=== PATIENT | male | born 1970 | race Caucasian/White ===

== ENCOUNTER 2017-05-28 03:09 | Emergency (ER) | payer BC ==
[~2017-05-28] VITALS: Ht 167.6 cm; Wt 68.2 kg
[~2017-05-28 03:09] MED LIST: ALPR1TAB2 PO; DEPO-TESTOSTERONE IM; MIRT30TA PO
[2017-05-28 03:13] VITALS: Ht 167.6 cm; Wt 68.2 kg
[2017-05-28] MEDS ORDERED: DEXAMETHASONE SOD INJ 4 MG/ML VIAL IV STA (03:26)
[2017-05-28] MEDS ORDERED: DiphenhydrAMINE HCL 50 MG/ML VIAL IV STA (03:26)
[2017-05-28] MEDS ORDERED: RANITIDINE HCL 50 MG/100 ML D5W IV STA (03:26)
[2017-05-28 03:55] LABS: BASO % 0.2 %; BASO ABS # 0.02 K/uL (0-0.2); COMPLETE YES; EOS % 1.9 %; HEMATOCRIT 47.5 % (42-52); IG% 0.1 %; LYMPH % 17.1 %; LYMPH ABS # 1.85 K/uL (1.2-3.4); MEAN CELL VOLUME 90.1 fL (80-100); MEAN CORPUSCULAR HEMOGLOBIN 30.7 pg (25-34); MEAN CORPUSCULAR HGB CONC 34.1 g/dl (32-36); MEAN PLATELET VOLUME 10.9 fL (7.4-10.4); MONO % 7.1 %; NEUT % 73.6 %; PLATELET COUNT 279 K/uL (130-400); RED BLOOD COUNT 5.27 M/uL (4.7-6.1); WHITE BLOOD COUNT 10.83 K/uL (4.8-10.8)
[2017-05-28] MEDS ORDERED: OMEP40CA41 PO (03:56)
[2017-05-28 04:07] LABS: INR 0.9 (0.9-1.1); PARTIAL THROMBOPLASTIN RATIO 1.1; PROTHROMBIN TIME (PATIENT) 9.3 SECONDS (9.0-12.0)
[2017-05-28 04:12] LABS: BUN/CREATININE RATIO 12.2 (10-20); CALCIUM 8.5 mg/dl (8.5-10.1); CREATININE 0.94 mg/dl (0.60-1.40); POTASSIUM 3.7 mmol/L (3.5-5.1)
[2017-05-28] MEDS ORDERED: SODIUM CHLORIDE 0.9% 1000ML 1,000 ML IV STA (04:30)
--- NOTE | 2017-05-28 06:28 | EMERGENCY ROOM VISIT NOTE ---
History First contact with patient: 03:23 Chief Complaint: FACIAL PAIN/INJURY Stated Complaint: SWOLLEN FACE History of Present Illness The patient is a 46 year old male who presents to the Emergency Room with complaints of facial swelling. The patient states that he woke up tonight and noticed that his upper lip was swollen. The patient states that over the past few days, he has had a rash which has been moving to different parts of his body. He reports that initially started in the right wrist, which also became swollen. He first noticed this 4-5 days ago. Since then, he has had a red rash which moves over his feet, hands and abdomen/trunk. He reports that he has one spot over his lower abdomen at this time. He denies any history of similar episodes. He does report an allergy to peaches and penicillin and denies any recent exposure to either of these. He does report that he has been taking [place] cold and flu [id number]. He denies any other new medications or new environmental exposures. The patient does not take any JENNIFER inhibitor's or anti-inflammatories. Review of Systems A complete 10 point review of systems was reviewed with the patient with pertinent positives and negatives as per history of present illness. All else were negative. Social History Smoking Status: Never Smoker Current/Historical Medications Scheduled Doxycycline Hyclate (Vibramycin), 100 MG PO BID Mirtazapine (Remeron), 45 MG PO DAILY Omeprazole (Prilosec), 40 MG PO DAILY [Depo-Testosterone ], 200 MG IM EVERY TWO WEEKS Physical Exam Vital Signs Date Time Temp Pulse Resp B/P (MAP) Pulse Ox O2 Delivery O2 Flow Rate FiO2 05/28/17 07:34 88 22 140/94 96 Room Air 05/28/17 05:30 111 18 111/79 96 Room Air 05/28/17 04:30 85 18 141/94 97 Room Air 05/28/17 03:13 37.1 96 18 132/96 97 Room Air 96 Physical Exam VITALS: Vitals are noted on the nurse's note and reviewed by myself. Vital signs stable. GENERAL: This is a 46-year-old male, in no acute distress, nondiaphoretic, well- developed well-nourished. SKIN: There is an erythematous raised lesion to the lower abdomen. There is no additional erythematous lesion to the left volar wrist. No other rashes noted. FACE: The upper lip is moderately edematous. No swelling of the lower lip. EARS: External auditory canals clear, tympanic membranes pearly dumont without erythema or effusion bilaterally. EYES: Pupils equal round and reactive to light and accommodation. Conjunctivae without injection, sclerae without icterus. MOUTH: Mucous membranes moist. No swelling of the tongue. Airway patent. NECK: Supple without nuchal rigidity. No lymphadenopathy. HEART: Regular rate and rhythm without murmurs gallops or rubs. LUNGS: Clear to auscultation bilaterally without wheezes, rales or rhonchi.e. NEURO: Patient was alert and oriented to person place and time. Medical Decision & Procedures Laboratory Results 05/28/17 03:32 Red Blood Count 5.27, Mean Corpuscular Volume 90.1, Mean Corpuscular Hemoglobin 30.7, Mean Corpuscular Hemoglobin Concent 34.1, Mean Platelet Volume 10.9, Neutrophils (%) (Auto) 73.6, Lymphocytes (%) (Auto) 17.1, Monocytes (%) (Auto) 7.1, Eosinophils (%) (Auto) 1.9, Basophils (%) (Auto) 0.2, Neutrophils # (Auto) 7.97, Lymphocytes # (Auto) 1.85, Monocytes # (Auto) 0.77, Eosinophils # (Auto) 0.21, Basophils # (Auto) 0.02 05/28/17 03:32 Test 05/28/17 03:32 White Blood Count 10.83 K/uL (4.8-10.8) Red Blood Count 5.27 M/uL (4.7-6.1) Hemoglobin 16.2 g/dL (14.0-18.0) Hematocrit 47.5 % (42-52) Mean Corpuscular Volume 90.1 fL (80-100) Mean Corpuscular Hemoglobin 30.7 pg (25-34) Mean Corpuscular Hemoglobin Concent 34.1 g/dl (32-36) Platelet Count 279 K/uL (130-400) Mean Platelet Volume 10.9 fL (7.4-10.4) Neutrophils (%) (Auto) 73.6 % Lymphocytes (%) (Auto) 17.1 % Monocytes (%) (Auto) 7.1 % Eosinophils (%) (Auto) 1.9 % Basophils (%) (Auto) 0.2 % Neutrophils # (Auto) 7.97 K/uL (1.4-6.5) Lymphocytes # (Auto) 1.85 K/uL (1.2-3.4) Monocytes # (Auto) 0.77 K/uL (0.11-0.59) Eosinophils # (Auto) 0.21 K/uL (0-0.5) Basophils # (Auto) 0.02 K/uL (0-0.2) RDW Standard Deviation 40.3 fL (36.4-46.3) RDW Coefficient of Variation 12.2 % (11.5-14.5) Immature Granulocyte % (Auto) 0.1 % Immature Granulocyte # (Auto) 0.01 K/uL (0.00-0.02) Prothrombin Time 9.3 SECONDS (9.0-12.0) Prothromb Time International Ratio 0.9 (0.9-1.1) Activated Partial Thromboplast Time 27.8 SECONDS (21.0-31.0) Partial Thromboplastin Ratio 1.1 Anion Gap 5.0 mmol/L (3-11) Est Creatinine Clear Calc Drug Dose 86.7 ml/min Estimated GFR () 110.7 Estimated GFR (Non- 95.5 BUN/Creatinine Ratio 12.2 (10-20) Calcium Level 8.5 mg/dl (8.5-10.1) Lyme Disease IgG Antibody NEG (NEG) Medications Administered Medications (Trade) Dose Ordered Sig/Yoana Route Start Time Stop Time Status Last Admin Dose Admin Dexamethasone Sodium Phosphate (Decadron Inj) 10 mg NOW STAT IV 05/28/17 03:26 05/28/17 03:28 PA 05/28/17 03:46 10 MG Ranitidine HCl (zANTac IV) 50 mg NOW STAT IV 05/28/17 03:26 05/28/17 03:28 PA 05/28/17 03:47 50 MG Diphenhydramine HCl (Benadryl Inj) 50 mg NOW STAT IV 05/28/17 03:26 05/28/17 03:28 PA 05/28/17 03:45 50 MG Sodium Chloride 1,000 ml @ 999 mls/hr Q1H1M STAT IV 05/28/17 04:30 05/28/17 05:30 DC 05/28/17 04:42 999 MLS/HR Ceftriaxone Sodium (Rocephin Inj) 1 gm NOW STAT IV 05/28/17 07:29 05/28/17 07:33 DC 05/28/17 07:33 1 GM ED Course The patient was evaluated as above. Labs were drawn and IV access was obtained. Patient was medicated with IV Decadron, Benadryl and Zantac. Lyme screen was found to be positive. Patient was given 1 gm Rocephin IV. He will be placed on doxycycline. Discharge instructions were reviewed with the patient. The patient verbalized understanding of my assessment and treatment plan and was discharged home in good condition. Medical Decision Differential diagnosis includes Lyme disease, angioedema, allergic reaction, anaphylaxis, among others. The patient is a 46-year-old male who presents today complaining of upper lip swelling and a migrating rash over the past several days. Labs were fairly unremarkable. Lyme IgM did come back as equivocal. I feel that the patient should be treated for Lyme given these symptoms. He was given 1 g Rocephin and will be placed on doxycycline. His lip swelling did appear to improve after receiving the IV Decadron, Benadryl and Zantac. He was advised to follow closely with Dr. Wright, his PCP. He was instructed to return here immediately. Labs difficulty swallowing, difficulty breathing, or tongue swelling. Based on the patient's presentation and work up, I feel the patient is stable for outpatient treatment. The patient was educated to return to the emergency department for any worsening of their current condition or new/concerning symptoms. He will follow up with his primary care provider. The patient's case was reviewed with Dr. Dean, ED attending physician, who agreed with my assessment and treatment plan. Medication Reconcilliation Current Medication List: was personally reviewed by me Blood Pressure Screening Patient's blood pressure: Elevated blood pressure Blood pressure disposition: Elevated BP felt to be situational Impression Primary Impression: Facial swelling Additional Impression: Lyme disease Departure Information Dispostion Home / Self-Care Condition GOOD Prescriptions Doxycycline Hyclate (VIBRAMYCIN) 100 Mg Cap 100 MG PO BID for 21 Days, #42 CAP Prov: Katerine Bustos ., BAO 05/28/17 Referrals Van Bass M.D. (PCP) Patient Instructions My [facility] Additional Instructions You were prescribed doxycycline to be taken twice daily for 21 days. This is an antibiotic. All antibiotics have the potential to cause diarrhea. Stop this medication and contact a medical provider if you were to develop any significant adverse side effects including: wheezing, shortness of breath, passing out, vomiting, or a diffuse rash. Always take antibiotics as directed and COMPLETE the ENTIRE course regardless of the improvement of your symptoms. You should take Benadryl (diphenhydramine) 25-50 mgs every 6 hours for the next 3 days. You can find this medicine [id number]. Benadryl can help reduce your symptoms. You should take it for the next 3 days or until your symptoms have subsided. Be aware that Benadryl can make you drowsy. Follow-up with Dr. Wright within 2 days for a recheck. Return here for worsening swelling, difficulty breathing, difficulty swallowing or any other new/concerning symptoms. Problem Qualifiers
[2017-05-28 07:14] LABS: LYME DISEASE AB IGG NEG (NEG)
[2017-05-28 07:17] LABS: LYME DISEASE AB IGM EQUIVOCAL (NEG)
[2017-05-28] MEDS ORDERED: CEFTRIAXONE SOD INJ 1 GM ADDVIAL IV STA (07:29)
[2017-05-28] MEDS ORDERED: DOXY100C PO (07:31)
[2017-05-28 07:34] VITALS: BP 140/94; PULSE 88; O2SAT 96
[2017-06-02 06:26] LABS: 18KDIGG BAND NONREACTIVE (NONREACTIVE); 23KDIGG BAND NONREACTIVE (NONREACTIVE); 23KDIGM BAND REACTIVE (NONREACTIVE); 28KDIGG BAND NONREACTIVE (NONREACTIVE); 30KDIGG BAND NONREACTIVE (NONREACTIVE); 39KDIGG BAND NONREACTIVE (NONREACTIVE); 39KDIGM BAND NONREACTIVE (NONREACTIVE); 41KDIGG BAND REACTIVE (NONREACTIVE); 41KDIGM BAND REACTIVE (NONREACTIVE); 45KDIGG BAND NONREACTIVE (NONREACTIVE); 58KDIGG BAND NONREACTIVE (NONREACTIVE); 66KDIGG BAND NONREACTIVE (NONREACTIVE); 93KDIGG BAND NONREACTIVE (NONREACTIVE)
== END 2017-05-28 08:11 | disposition home or self-care (01) ==
LOC: C.EDB 03:10
DX: R22.0 Localized swelling, mass and lump, head (principal); A69.20 Lyme disease, unspecified; Z79.899 Other long term (current) drug therapy

== ENCOUNTER → 2017-07-08 | Outpatient (CLI) | payer BC ==
[~2017-07-08] MED LIST changes: -ALPR1TAB2 PO; +OMEP40CA41 PO
== END | disposition home or self-care (01) ==
LOC: C.LAB1850 13:59
PROVIDERS: ATTEND Dermatology
DX: L50.9 Urticaria, unspecified (principal)

== ENCOUNTER → 2017-08-04 | Outpatient (CLI) | payer BC | END | disposition home or self-care (01) | LOC: C.LAB1850 16:45 | PROVIDERS: ATTEND Dermatology | DX: L50.9 Urticaria, unspecified (principal) ==

== ENCOUNTER 2020-04-24 20:58 | Inpatient (IN) ==
[2020-04-24 21:42] LABS: Basophils # (auto) 0.01 K/uL (0-0.2); Basophils % (auto) 0.1 %; Eosinophils # (auto) 0.15 K/uL (0-0.5); Hematocrit (blood only) 42.5 % (42-52); Hemoglobin 14.8 g/dL (14.0-18.0); Immature Granulocytes # (auto) 0.02 K/uL (0.00-0.02); Immature Granulocytes % (auto) 0.3 %; Lymphocytes # (auto) 2.15 K/uL (1.2-3.4); Lymphocytes % (auto) 28.3 %; Mean Corpuscular Hemoglobin 31.1 pg (25-34); Mean Corpuscular Hgb Conc 34.8 g/dL (32-36); Mean Corpuscular Volume 89.3 fL (80-100); Monocytes # (auto) 0.85 K/uL (0.11-0.59); Monocytes % (auto) 11.2 %; Neutrophils # (auto) 4.42 K/uL (1.4-6.5); Neutrophils % (auto) 58.1 %; Platelet Count 247 K/uL (130-400); RDW Coefficient of Variation 11.8 % (11.5-14.5); RDW Standard Deviation 38.1 fL (36.4-46.3); Red Blood Count 4.76 M/uL (4.7-6.1)
--- NOTE | 2020-04-24 21:47 | Emergency Department Note ---
History of Present Illness General Chief complaint: Chest Pain Stated complaint: CHEST PAIN AND L ARM PAIN Time Seen by Provider: 04/24/20 21:09 Source: patient Mode of arrival: ambulatory Limitations: no limitations History of Present Illness Provider complaint: Chest pain Onset (ago): hour(s) Location: chest Radiation: extremity Severity: moderate Pain Consistency: + colicky Maximum Pain Intensity: 2 Current Pain Intensity: 1 Exacerbated By: + movement Associated symptoms: + shortness of breath Treatments prior to arrival: none This is a 49-year-old male who presents today with concern for central and left- sided chest pain that began this afternoon while he was at work. Patient states he noted with going up ladders and carrying things the chest pain would get worse. Patient states this pattern continued even after he got home from work. States with rest the pain would ease but not completely go away. Patient states the pain would radiate into the left upper extremity, and there is also an accompanying numbness to the left upper extremity. No radiation into the back or neck. Patient states he was slightly short of breath at times, however feels fine right now. Patient denies any recent cough or cold, fevers or chills. Patient denies any change in exertion or activity, no trauma. Patient states both his brother and father have had heart problems. He states he is never been evaluated and never had any similar episodes previously. Patient states he did take aspirin prior to arrival. No other meds at home for his pain. Pt seen during a time of high acuity and national emergency pandemic while wearing PPE. Home Medications Home Medications Medication Instructions Recorded Confirmed Type mirtazapine 45 mg tablet 45 mg PO DAILY #90 tab 03/17/19 04/24/20 Rx omeprazole 40 mg capsule,delayed 40 mg PO DAILY #90 cap 03/17/19 04/24/20 Rx release epinephrine 0.3 mg/0.3 mL 0.3 mg IM ONCE PRN ea 06/14/19 04/24/20 History injection, auto-injector diclofenac sodium [Voltaren] 0 g TOPICAL QID PRN 04/24/20 04/24/20 History lactobacillus combination no.4 0 mmu cells PO DAILY 04/24/20 04/24/20 History [Probiotic] Allergies Allergy/AdvReac Type Severity Reaction Status Date / Time pollen extracts Allergy Intermediate ITCHY Verified 09/01/20 22:07 EYES, RUNNY NOSE, CONGESTION Penicillins Allergy Unknown HAPPENED Verified 04/24/20 22:07 A CHILD Past Med/Surg History Medical History Lyme disease Surgical History S/P laparoscopic cholecystectomy Family History Other Family history non-contributory Social History Smoking Status: Never smoker Hx Alcohol Use: No Hx Substance Use: No Preferred Language: Lao Communication Ability: Effective Beliefs That Will Affect Care: None marital status: Current Living Situation: Alone current occupational status: employed 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 and A total of 10 systems reviewed and were otherwise negative Physical Exam Vital Signs Vital Signs - 24 hr 04/24/20 21:02 04/24/20 22:22 04/24/20 23:11 Temperature 37.2 C Temperature Source Oral Pulse Rate 76 74 Pulse Rate [Right] 79 Pulse Rhythm [Right] Regular Pulse Strength [Right] Normal Respiratory Rate 18 16 16 Respiratory Effort / Characteristics Non-Labored Spontaneous Non-Labored Spontaneous Respiratory Depth Normal Normal Respiratory Pattern Regular Blood Pressure 162/104 H 136/95 Blood Pressure [Right Arm] 143/89 H Blood Pressure Mean 123 Blood Pressure Mean [Right Arm] 107 Blood Pressure Position Sitting Blood Pressure Position [Right Arm] Sitting Pulse Oximetry 98 98 98 Oxygen Delivery Method Room Air Room Air Nasal Cannula Oxygen Flow Rate 4 Sepsis Recent Fever Within 48 Hours No Sepsis New/Unexplained Change in Mental Status No Sepsis Action Taken by Nursing No Action Required 04/24/20 23:28 04/24/20 23:34 04/24/20 23:42 Temperature Temperature Source Pulse Rate Pulse Rate [Right] 71 69 74 Pulse Rhythm [Right] Regular Regular Pulse Strength [Right] Normal Normal Respiratory Rate 16 16 16 Respiratory Effort / Characteristics Non-Labored Spontaneous Non-Labored Spontaneous Respiratory Depth Normal Normal Normal Respiratory Pattern Blood Pressure Blood Pressure [Right Arm] 80/57 L 90/66 L 96/74 L Blood Pressure Mean Blood Pressure Mean [Right Arm] 64 74 81 Blood Pressure Position Blood Pressure Position [Right Arm] Lying Lying Pulse Oximetry 98 99 98 Oxygen Delivery Method Nasal Cannula Nasal Cannula Room Air Oxygen Flow Rate 4 4 Sepsis Recent Fever Within 48 Hours Sepsis New/Unexplained Change in Mental Status Sepsis Action Taken by Nursing 04/25/20 00:03 Temperature Temperature Source Pulse Rate Pulse Rate [Right] 90 Pulse Rhythm [Right] Regular Pulse Strength [Right] Normal Respiratory Rate 16 Respiratory Effort / Characteristics Non-Labored Spontaneous Respiratory Depth Normal Respiratory Pattern Blood Pressure Blood Pressure [Right Arm] 136/95 Blood Pressure Mean Blood Pressure Mean [Right Arm] 108 Blood Pressure Position Blood Pressure Position [Right Arm] Lying Pulse Oximetry 92 Oxygen Delivery Method Nasal Cannula Oxygen Flow Rate 4 Sepsis Recent Fever Within 48 Hours Sepsis New/Unexplained Change in Mental Status Sepsis Action Taken by Nursing GENERAL: alert, well appearing, well nourished, no distress, non-toxic EYE EXAM: normal conjunctiva, PERRL and EOM's grossly intact OROPHARYNX: no exudate, no erythema, lips, buccal mucosa, and tongue normal and mucous membranes are moist NECK: supple, no nuchal rigidity, no adenopathy, non-tender LUNGS: Clear to auscultation. Normal chest wall mechanics, no w/r/r HEART: no murmurs, S1 normal and S2 normal, no reproducible chest wall tendern ess ABDOMEN: abdomen soft, non-tender, normo-active bowel sounds, no masses, no rebound or guarding. BACK: Back is symmetrical on inspection and there is no deformity, no midline tenderness, no CVA tenderness. SKIN: no rashes and no bruising, no petechiae UPPER EXTREMITIES: upper extremities are grossly normal. FROM, nml pulses b/l. No upper extremity edema. LOWER EXTREMITIES: No pitting edema. FROM, nml pulses b/l. NEURO EXAM: Normal sensorium, cranial nerves II-XII grossly intact, normal speech, no gross weakness of arms, no gross weakness of legs. Gross sensation intact. Course Course 2223: [facility] He would like me to hold off initiating heparin drip at this time as he would like to see and evaluate the patient and recheck a troponin in the interim. 2237: Patient updated on abnormal troponin level and plan. 2332: Called emergently to pt room as pt looked worse and repeat EKG now with STEMI. I reviewed and called HEART ALERT. Repeat EKG shows ST elevation inferiorly with ST depression anteroseptal. Patient hypotensive, pale, and diaphoretic, complaining of worsening chest pain. Patient had just been given 2 mg of morphine IV per the hospitalist order according to nursing staff. Patient laid back down in bed, Nitropaste removed, IV fluids opened up and a second IV line started. Once patient's blood pressure improved to reasonable level, patient was given 50 mcg of IV fentanyl to help with pain. Heparin had not yet been started on the patient, we attempted to call up to the [facility] to see if the hand picker would like Brilinta given. After several minutes, we were told not to give Brilinta, and wait for the hand picker come see the patient at bedside. Dr. Craig was able to come to bedside, he did request Brilinta at that time while he was discussing the procedure with the patient. By that time patient's blood pressure had improved to a reasonable level, patient's color was improved, he was no longer diaphoretic, although he was still having significant pain. Patient had been given two 50 mcg doses of fentanyl at that time. Administered Medications Acetaminophen (Acetaminophen 325 Mg Tab) 650 mg PO Q4H PRN PRN Reason: Pain or Fever Stop: 05/25/20 01:44 Last Admin: 04/26/20 23:39 Dose: 650 mg Documented by: [id number] Admin: 04/26/20 04:28 Dose: 650 mg Documented by: [id number] Admin: 04/25/20 19:41 Dose: 650 mg Documented by: [id number] Admin: 04/25/20 13:01 Dose: 650 mg Documented by: [id number] Aspirin (Aspirin 81 Mg Ectab) 81 mg PO [facility] Stop: 05/25/20 08:59 Last Admin: 04/27/20 08:11 Dose: 81 mg Documented by: [id number] Admin: 04/26/20 08:32 Dose: 81 mg Documented by: [id number] Admin: 04/25/20 07:55 Dose: 81 mg Documented by: [id number] Atorvastatin Calcium (Atorvastatin 40 Mg Tab) 80 mg PO [facility] Stop: 05/25/20 08:59 Last Admin: 04/27/20 08:11 Dose: 80 mg Documented by: [id number] Admin: 04/26/20 08:32 Dose: 80 mg Documented by: [id number] Admin: 04/25/20 10:32 Dose: Not Given Documented by: [id number] Lorazepam (Ativan) 0.25 mg in 0.5 mls @ 0.5 mls/min IV Q4H PRN PRN Reason: Anxiety Stop: 05/25/20 01:44 Last Admin: 04/25/20 23:47 Dose: 0.5 mls/min Documented by: [id number] Lactobacillus Acidophilus (Lactobacillus Acidophilus (Floranex) Tab) 4 tab PO DAILY DELTA Stop: 05/25/20 08:59 Last Admin: 04/27/20 08:11 Dose: 4 tab Documented by: [id number] Admin: 04/26/20 08:31 Dose: 4 tab Documented by: [id number] Admin: 04/25/20 09:55 Dose: Not Given Documented by: [id number] Lisinopril (Lisinopril 2.5 Mg Tab) 2.5 mg PO QAM DELTA Stop: 05/26/20 10:59 Last Admin: 04/27/20 08:11 Dose: 2.5 mg Documented by: [id number] Admin: 04/26/20 11:32 Dose: 2.5 mg Documented by: [id number] Metoprolol Tartrate (Metoprolol Tartrate 25 Mg Tab) 25 mg PO BID DELTA Stop: 05/26/20 20:59 Last Admin: 04/27/20 08:10 Dose: 25 mg Documented by: [id number] Admin: 04/26/20 20:43 Dose: 25 mg Documented by: [id number] Mirtazapine (Mirtazapine Soltab 15 Mg) 45 mg PO HS DELTA Stop: 05/25/20 20:59 Last Admin: 04/26/20 20:43 Dose: 45 mg Documented by: [id number] Admin: 04/25/20 20:59 Dose: 45 mg Documented by: [id number] Morphine Sulfate (Morphine Sulfate 2 Mg/Ml Carp) 2 mg IV Q3H PRN PRN Reason: Pain Stop: 05/09/20 01:52 Last Admin: 04/25/20 07:52 Dose: 2 mg Documented by: [id number] Ondansetron HCl (Ondansetron Inj 2 Mg/Ml 2 Ml Vial) 4 mg IV Q6H PRN PRN Reason: Nausea And Vomiting Stop: 05/25/20 01:53 Last Admin: 04/25/20 09:55 Dose: 4 mg Documented by: [id number] Pantoprazole Sodium (Pantoprazole 40 Mg Tab) 40 mg PO DAILY [facility] Stop: 05/25/20 08:59 Last Admin: 04/27/20 08:11 Dose: 40 mg Documented by: [id number] Admin: 04/26/20 08:31 Dose: 40 mg Documented by: [id number] Admin: 04/25/20 07:55 Dose: 40 mg Documented by: [id number] Sodium Chloride (Sodium Chloride 0.65% Na Soln 45 Ml (Bena)) 2 sprays NA UD PRN PRN Reason: Dryness Stop: 05/26/20 19:34 Last Admin: 04/26/20 20:15 Dose: 2 sprays Documented by: [id number] Ticagrelor (Ticagrelor 90 Mg Tab) 90 mg PO BID [facility] Stop: 05/25/20 11:55 Last Admin: 04/27/20 08:10 Dose: 90 mg Documented by: [id number] Admin: 04/26/20 20:43 Dose: 90 mg Documented by: [id number] Admin: 04/26/20 08:32 Dose: 90 mg Documented by: [id number] Admin: 04/25/20 20:59 Dose: 90 mg Documented by: [id number] Admin: 04/25/20 12:22 Dose: 90 mg Documented by: [id number] Discontinued Medications Aspirin (Aspirin Chew 324 Mg) 324 mg PO NOW STA Stop: 04/24/20 22:03 Last Admin: 04/24/20 22:07 Dose: Not Given Documented by: [id number] Atropine Sulfate (Atropine Sulfate 0.1 Mg/Ml 10ml Syr) Confirm Administered Dose 1 mg IV .STK-MED ONE Stop: 04/25/20 00:23 Last Admin: 04/25/20 02:23 Dose: Not Given Documented by: [id number] Fentanyl Citrate (Fentanyl Citrate 100 Mcg/2 Ml Vial) Confirm Administered Dose 100 mcg .ROUTE .STK-MED ONE Stop: 04/24/20 23:40 Last Increment: 04/24/20 23:56 Dose: 50 mcg Documented by: [id number] Increment: 04/24/20 23:40 Dose: 50 mcg Documented by: [id number] Fentanyl Citrate (Fentanyl Citrate 100 Mcg/2 Ml Vial) 50 mcg IV NOW STA Stop: 04/24/20 23:41 Last Admin: 04/24/20 23:41 Dose: Not Given Documented by: [id number] Fentanyl Citrate (Fentanyl Citrate 100 Mcg/2 Ml Vial) 50 mcg IV NOW STA Stop: 04/24/20 23:50 Last Admin: 04/25/20 02:24 Dose: Not Given Documented by: [id number] Fentanyl Citrate (Fentanyl Citrate 100 Mcg/2 Ml Vial) Confirm Administered Dose 100 mcg .ROUTE .ST-MED ONE Stop: 04/25/20 10:45 Last Increment: 04/25/20 11:43 Dose: 50 mcg Documented by: [id number] Furosemide (Furosemide 40 Mg/4 Ml Vial) 20 mg IV NOW ONE Stop: 04/25/20 02:31 Last Admin: 04/25/20 02:22 Dose: 20 mg Documented by: [id number] Furosemide (Furosemide 40 Mg/4 Ml Vial) Confirm Administered Dose 40 mg IV .[facility]- MED ONE Stop: 04/25/20 02:19 Last Admin: 04/25/20 02:22 Dose: Not Given Documented by: [id number] Heparin Sodium (Porcine) (Heparin (Porcine) 1000 Unit/Ml 10 Ml ([facility] Use Only)) Confirm Administered Dose 10,000 units .ROUTE .STEvento-MED ONE Stop: 04/25/20 00:48 Last Admin: 04/25/20 02:22 Dose: Not Given Documented by: [id number] Heparin Sodium (Porcine) (Heparin (Porcine) 1000 Unit/Ml 10 Ml ([facility] Use Only)) Confirm Administered Dose 10,000 units .ROUTE .STEvento-MED ONE Stop: 04/25/20 10:44 Last Admin: 04/25/20 11:42 Dose: 8,000 units Documented by: [id number] Heparin Sodium/Sodium Chloride (Heparin In Nss Infusion 1000 Unit/500 Ml (2 U/Ml) Bag) Confirm Administered Dose 3,000 units IV .STK-MED ONE Stop: 04/25/20 10:45 Last Admin: 04/25/20 11:43 Dose: 3,000 units Documented by: [id number] Heparin Sodium/Dextrose (Heparin Sodium/Dextrose) 25,000 units in 500 mls @ 0.02 mls/hr IV .Q24H DELTA; Protocol Stop: 05/24/20 23:44 Last Admin: 04/25/20 02:28 Dose: Not Given Documented by: [id number] Sodium Chloride (Nss) 500 mls @ 500 mls/hr IV .Q1H ONE Stop: 04/25/20 00:55 Last Admin: 04/25/20 02:23 Dose: Not Given Documented by: [id number] Promethazine HCl 12.5 mg/ (Sodium Chloride) 50.5 mls @ 202 mls/hr IV Q6H PRN PRN Reason: Nausea And Vomiting Stop: 05/25/20 01:44 Last Infusion: 04/25/20 08:40 Dose: 0 mls/hr Documented by: [id number] Admin: 04/25/20 08:24 Dose: 202 mls/hr Documented by: [id number] Norepinephrine Bitartrate 8 mg (/ Dextrose) 508 mls @ 12.783 mls/hr IV .Q24H [facility]; Protocol Stop: 05/25/20 05:59 Last Admin: 04/25/20 08:33 Dose: Not Given Documented by: [id number] Metoprolol Tartrate (Metoprolol Tartrate 25 Mg Tab) 12.5 mg PO BID [facility] Stop: 05/25/20 08:59 Last Admin: 04/26/20 08:54 Dose: 12.5 mg Documented by: [id number] Admin: 04/25/20 21:05 Dose: 12.5 mg Documented by: [id number] Admin: 04/25/20 10:32 Dose: Not Given Documented by: [id number] Metoprolol Tartrate (Metoprolol Tartrate 25 Mg Tab) 12.5 mg PO ONE ONE Stop: 04/25/20 12:20 Last Admin: 04/25/20 12:51 Dose: 12.5 mg Documented by: [id number] Metoprolol Tartrate (Metoprolol Tartrate 25 Mg Tab) 12.5 mg PO ONE ONE Stop: 04/26/20 10:53 Last Admin: 04/26/20 11:30 Dose: 12.5 mg Documented by: [id number] Midazolam HCl (Midazolam Hcl 1 Mg/Ml 2ml Vial) Confirm Administered Dose 2 mg .ROUTE .STK-MED ONE Stop: 04/24/20 23:59 Last Admin: 04/25/20 02:23 Dose: Not Given Documented by: [id number] Midazolam HCl (Midazolam Hcl 1 Mg/Ml 2ml Vial) Confirm Administered Dose 2 mg .ROUTE .STK-MED ONE Stop: 04/25/20 10:45 Last Increment: 04/25/20 11:43 Dose: 1 mg Documented by: [id number] Morphine Sulfate (Morphine Sulfate 2 Mg/Ml Carp) Confirm Administered Dose 2 mg .ROUTE .STK-MED ONE Stop: 04/24/20 23:19 Last Admin: 04/24/20 23:20 Dose: 2 mg Documented by: [id number] Nicardipine HCl (Nicardipine Hcl Inj 2.5 Mg/Ml 10 Ml Amp) Confirm Administered Dose 25 mg .ROUTE .STEvento-MED ONE Stop: 04/25/20 10:44 Last Admin: 04/25/20 11:42 Dose: 25 mg Documented by: [id number] Nitroglycerin (Nitroglycerin 2% Ointment 30gm Tube) 1 inch EXT NOW STA Stop: 04/24/20 22:03 Last Admin: 04/24/20 22:07 Dose: 1 inch Documented by: [id number] Nitroglycerin (Nitroglycerin Sl 0.4 Mg/Tab Tab) 0.4 mg SL UD PRN PRN Reason: Chest Pain Stop: 05/25/20 01:44 Last Admin: 04/25/20 05:42 Dose: 0.4 mg Documented by: [id number] Nitroglycerin/Dextrose (Nitroglycerin/D5w 100mcg/Ml 20ml Syr) Confirm Administered Dose 2,000 mcg .ROUTE .STEvento-MED ONE Stop: 04/25/20 10:45 Last Admin: 04/25/20 11:43 Dose: 2,000 mcg Documented by: [id number] Norepinephrine Bitartrate (Norepinephrine Bitartrate 1 Mg/Ml 4 Ml Vial ([facility] Use Only)) Confirm Administered Dose 8 mg .ROUTE .STEvento-MED ONE Stop: 04/25/20 00:31 Last Admin: 04/25/20 02:23 Dose: Not Given Documented by: [id number] Norepinephrine Bitartrate (Norepinephrine Bitartrate 1 Mg/Ml 4 Ml Vial ([employer] Use Only)) Confirm Administered Dose 4 mg .ROUTE .STEvento-MED ONE Stop: 04/25/20 00:32 Last Admin: 04/25/20 02:22 Dose: Not Given Documented by: [id number] Potassium Chloride (Potassium Chloride 20 Meq Tabcr) 40 meq PO NOW ONE Stop: 04/25/20 06:01 Last Admin: 04/25/20 06:13 Dose: 40 meq Documented by: [id number] Potassium Chloride (Potassium Chloride 20 Meq Tabcr) 20 meq PO NOW STA Stop: 04/26/20 05:40 Last Admin: 04/26/20 08:28 Dose: 20 meq Documented by: [id number] Ticagrelor (Ticagrelor 90 Mg Tab) 180 mg PO ONE ONE Stop: 04/25/20 00:01 Last Admin: 04/25/20 00:02 Dose: 180 mg Documented by: [id number] Critical Care Time Critical Care Time: Yes Total Critical Care Time: 39 Critical care of 39 min performed to assess and manage high likelihood of life- threatening ACS, involving labs and imaging performed with assessment to evaluate STEMI diagnosis with frequent reassessment. This time includes bedside time, treatment discussions with patient/family/consultants, documentation time and excludes procedure time. Medical Decision Making Differential Diagnosis Differential diagnoses includes but is not limited to acute coronary syndrome, myocardial infarction, pericarditis, pulmonary embolus, aortic dissection, pneumonia, pneumothorax, musculoskeletal, shingles, esophageal. Medical Records Attestation: I reviewed the patient's medical records. Home Medications Current Medication List: was personally reviewed by me Laboratory Data Attestation: I reviewed the patient's lab results. Result diagrams: 04/27/20 06:25 04/27/20 06:25 Lab Results 04/24/20 04/24/20 04/24/20 Range/Units 21:16 21:16 21:16 WBC 7.60 (4.8-10.8) K/uL RBC 4.76 (4.7-6.1) M/uL Hgb 14.8 (14.0-18.0) g/dL Hct 42.5 (42-52) % MCV 89.3 (80-100) fL MCH 31.1 (25-34) pg MCHC 34.8 (32-36) g/dL RDW Std Deviation 38.1 (36.4-46.3) fL RDW Coeff of Jaci 11.8 (11.5-14.5) % Plt Count 247 (130-400) K/uL MPV 11.0 H (7.4-10.4) fL Immature Gran % (Auto) 0.3 % Neut % (Auto) 58.1 % Lymph % (Auto) 28.3 % [place] % (Auto) 11.2 % Eos % (Auto) 2.0 % Baso % (Auto) 0.1 % Neut # (Auto) 4.42 (1.4-6.5) K/uL Lymph # (Auto) 2.15 (1.2-3.4) K/uL [place] # (Auto) 0.85 H (0.11-0.59) K/uL Eos # (Auto) 0.15 (0-0.5) K/uL Baso # (Auto) 0.01 (0-0.2) K/uL Immature Gran # (Auto) 0.02 (0.00-0.02) K/uL PT 10.0 (9.0-12.0) Seconds INR 0.9 (0.9-1.1) APTT 26.4 (21.0-31.0) Seconds PTT Ratio 0.9 Activ Coag Time Kaolin (94-140) SECONDS Sodium 137 (136-145) mmol/L Potassium 3.8 (3.5-5.1) mmol/L Chloride 102 (98-107) mmol/L Carbon Dioxide 29 (21-32) mmol/L Anion Gap 6.0 (3-11) BUN 9 (7-18) mg/dl Creatinine 1.00 (0.6-1.4) mg/dl Est Cr Clr Drug Dosing 78.9 ml/min Est GFR ( Amer) 100.6 Est GFR (Non-Af Amer) 86.8 BUN/Creatinine Ratio 8.8 L (10-20) Glucose 104 H (70-99) mg/dl Calcium 8.7 (8.5-10.1) mg/dl Magnesium (1.8-2.4) mg/dl Total Bilirubin 0.3 (0.2-1) mg/dl AST 24 (15-37) U/L ALT 35 (12-78) U/L Alkaline Phosphatase 104 (45-117) U/L Troponin I 0.066 H* (0-0.045) ng/ml Total Protein 7.4 (6.4-8.2) gm/dl Albumin 3.8 (3.4-5.0) gm/dl Globulin 3.6 (2.5-4.0) gm/dl Albumin/Globulin Ratio 1.1 (0.9-2) 04/24/20 04/25/20 Range/Units 23:27 00:39 WBC (4.8-10.8) K/uL RBC (4.7-6.1) M/uL Hgb (14.0-18.0) g/dL Hct (42-52) % MCV (80-100) fL MCH (25-34) pg MCHC (32-36) g/dL RDW Std Deviation (36.4-46.3) fL RDW Coeff of Jaci (11.5-14.5) % Plt Count (130-400) K/uL MPV (7.4-10.4) fL Immature Gran % (Auto) % Neut % (Auto) % Lymph % (Auto) % [place] % (Auto) % Eos % (Auto) % Baso % (Auto) % Neut # (Auto) (1.4-6.5) K/uL Lymph # (Auto) (1.2-3.4) K/uL [place] # (Auto) (0.11-0.59) K/uL Eos # (Auto) (0-0.5) K/uL Baso # (Auto) (0-0.2) K/uL Immature Gran # (Auto) (0.00-0.02) K/uL PT (9.0-12.0) Seconds INR (0.9-1.1) APTT (21.0-31.0) Seconds PTT Ratio Activ Coag Time Kaolin 224 H (94-140) SECONDS Sodium (136-145) mmol/L Potassium (3.5-5.1) mmol/L Chloride (98-107) mmol/L Carbon Dioxide (21-32) mmol/L Anion Gap (3-11) BUN (7-18) mg/dl Creatinine (0.6-1.4) mg/dl Est Cr Clr Drug Dosing ml/min Est GFR ( Amer) Est GFR (Non-Af Amer) BUN/Creatinine Ratio (10-20) Glucose (70-99) mg/dl Calcium (8.5-10.1) mg/dl Magnesium 2.2 (1.8-2.4) mg/dl Total Bilirubin (0.2-1) mg/dl AST (15-37) U/L ALT (12-78) U/L Alkaline Phosphatase (45-117) U/L Troponin I 0.150 H* (0-0.045) ng/ml Total Protein (6.4-8.2) gm/dl Albumin (3.4-5.0) gm/dl Globulin (2.5-4.0) gm/dl Albumin/Globulin Ratio (0.9-2) Imaging Data Radiologist's Impression: SINGLE VIEW CHEST CLINICAL HISTORY: Atypical chest pain. FINDINGS: An AP, portable, upright chest radiograph is compared to study dated 11/07/2019. The examination is degraded by portable technique and patient rotation. The cardiomediastinal silhouette is unremarkable. The lungs and pleural spaces are clear. No pneumothorax is seen. The bony thorax is grossly intact. IMPRESSION: No active disease in the chest. ACT 112: Negative or not required by law. Electronically signed by: Brooks Stanford M.D. 04/24/2020 8:39 PM ECG Data Attestation: I personally reviewed and interpreted this ECG as follows: Indication: + chest pain Rate (beats per minute): 73 Rhythm: + normal sinus ECG Intervals/blocks: + Normal QRS and + Normal QT ECG [place]: + Normal ECG ST segments: + ST depression (V4-6) Additional Comments: Repeat EKG showed ST elevation in II, III, aVF, V5/6, with ST depression in aVL and V2/3, normal sinus rhythm at 67, normal QRS and QTc Blood Pressure Blood Pressure Findings: Normal blood pressure MDM Narrative Patient presenting here with concerning story for angina or evolving ACS given exertional component of chest pain, however had no other accompanying complaints, was symptom-free at the time of my evaluation and hemodynamically stable. Patient's first EKG showed subtle ST depression, and troponin mildly elevated. The hospitalist requested I not initiate heparin for an NSTEMI until they evaluate the patient. After they have seen and evaluated the patient and the patient was waiting to go upstairs, he had been given morphine for pain via the hospitalist orders, gotten up to go to the bathroom, and stated his pain got worse, became pale and diaphoretic, and hypotensive. He was immediately laid back down and nursing staff obtained a second EKG which now showed a STEMI. I was called immediately to the room and upon viewing the patient in the EKG, called a heart alert. Normal saline bolus was opened up on the patient top of t he blood pressure and his Nitropaste was removed. We did wait until the blood pressure had stabilized before then trying fentanyl for his pain. The hand picker did come and evaluate the patient at bedside and he was taken emergently to the [facility]. Brilinta was given. Patient kept aware of evolving changes and new plan. Patient's blood pressure did improve, he was given additional doses of fentanyl for pain. An order was placed for continuous cardiac monitoring. The monitor shows a rate of _74_ with _normal sinus_ rhythm. Impression & Plan STEMI (ST elevation myocardial infarction), Chest pain Discharge Plan Visit Data Chief Complaint: Chest Pain Stated Complaint: CHEST PAIN AND L ARM PAIN ED Provider: Ana Rogers Discharge Problem: STEMI (ST elevation myocardial infarction), Chest pain Patient Disposition: Still a Patient Discharge Instructions Interventions: ED Discharge Assessment Last Done: 04/24/20 23:11 Discharge Problem: STEMI (ST elevation myocardial infarction) Qualifiers: Involved coronary artery: unspecified coronary artery Qualified Code(s): I21.3 - ST elevation (STEMI) myocardial infarction of unspecified site Chest pain Qualifiers: Chest pain type: chest pain due to myocardial ischemia Ischemic chest pain type: unstable angina pectoris Qualified Code(s): I20.0 - Unstable angina
[2020-04-24 21:49] LABS: Albumin Level 3.8 gm/dl (3.4-5.0); BUN Creatinine Ratio 8.8 (10-20); Calcium 8.7 mg/dl (8.5-10.1); Creatinine Clr Calc Pharmacy 78.9 ml/min; Est GFR (African American) 100.6; Est GFR (Non-African American) 86.8; Potassium 3.8 mmol/L (3.5-5.1)
[2020-04-24 21:50] LABS: INR 0.9 (0.9-1.1); Partial Thromboplastin Ratio 0.9; Partial Thromboplastin Time 26.4 Seconds (21.0-31.0)
[2020-04-24] MEDS ORDERED: ASPIRIN CHEW 324 MG PO STA (22:02)
[2020-04-24] MEDS ORDERED: NITROGLYCERIN 2% OINTMENT 30GM TUBE EXT STA (22:02)
[2020-04-24 22:11] LABS: Albumin Globulin Ratio 1.1 (0.9-2); Bilirubin,Total 0.3 mg/dl (0.2-1); Globulin 3.6 gm/dl (2.5-4.0); Total Protein 7.4 gm/dl (6.4-8.2); Troponin I 0.066 ng/ml (0-0.045)
--- NOTE | 2020-04-24 23:01 | History & Physical Report ---
Date of Service April 24, 2020 Assessment & Plan (1) STEMI (ST elevation myocardial infarction): HTN secondary to above hyperlipidemia, not currently on statin Rx Lyme disease status post treatment Neck pain possibly from strain rule out skeletal pathology anxiety/mood disorder. Patient notably anxious at time of exam ICU monitoring post diagnostic cardiac catheterization Cardiology consult RE ST elevation NV (ER provider already in touch with Dr. Craig.) Aspirin, beta-leyla; IV heparin Analgesia, anxiolytic PRN TTE RE ACS Check lipid profile with a.m. lab work Plain x-rays of the neck in a.m. DVT prophylaxis IV heparin Full code Text document was generated using [employer] voice recognition software. It may contain grammatical or spelling errors. Kindly contact undersigned for clarification of any documentation item in question. History of Present Illness Rectum Chief Complaint: Chest pain Primary Care Provider: Van Bass MD History obtained from patient, family, and records. Medical history significant for hyperlipidemia, urticaria, Lyme disease status post treatment, anxiety/mood disorder, IBS as per records, past tobacco abuse. 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 No cough symptoms. No prior episodes in the past. Some neck discomfort which patient does not reckon to be connected to chest pain. Intermittent symptoms until he got home. Discomfort more intense at home. At the ER, patient received aspirin and Nitropaste leading to resolution of chest discomfort. Initial EKG showed ST depression on the lateral leads. Initial troponin was 0.066. Patient got back from the bathroom when he experienced recurrent chest discomfort. Incomplete relief with morphine administration at the ER. SBP later noted to be 80s. Nitropaste removed back to the ER. ST elevation noted on the inferior and lateral leads on subsequent EKG. Heart alert called by ER provider. 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 Allergies Allergy/AdvReac Type Severity Reaction Status Date / Time pollen extracts Allergy Intermediate ITCHY Verified 04/24/20 22:07 EYES, RUNNY NOSE, CONGESTION Penicillins Allergy Unknown HAPPENED Verified 04/24/20 22:07 A CHILD Home Medications Home Medications Medication Instructions Recorded Confirmed Type mirtazapine 45 mg tablet 45 mg PO DAILY #90 tab 03/17/19 04/24/20 Rx omeprazole 40 mg capsule,delayed 40 mg PO DAILY #90 cap 03/17/19 04/24/20 Rx release epinephrine 0.3 mg/0.3 mL 0.3 mg IM ONCE PRN ea 06/14/19 04/24/20 History injection, auto-injector diclofenac sodium [Voltaren] 0 g TOPICAL QID PRN 04/24/20 04/24/20 History lactobacillus combination no.4 0 mmu cells PO DAILY 04/24/20 04/24/20 History [Probiotic] Past Med/Surg History Medical History Lyme disease Surgical History S/P laparoscopic cholecystectomy Family History Other Family history non-contributory Social History Smoking Status: Never smoker Hx Alcohol Use: Yes Hx Substance Use: No Preferred Language: Bulgarian marital status: Single current occupational status: employed 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 Feels Safe at Home: Yes Seatbelt Use: always Review of Systems Review of Systems: As per HPI, all 10 systems reviewed, usual abdominal pain attributed to functional disease as per GI, all other ROS negative Physical Exam Physical Exam: GENERAL: Comfortable, anxious, no respiratory distress SKIN: Normal color, warm HEENT: Alopecia, Stowell palpebral conjunctivae, no ptosis, dry buccal mucosa NECK : Some limitation in motion, no overt tenderness CHEST : CTA, no tenderness HEART : RRR, no obvious murmurs ABDOMEN: Some distention, chronic abdominal tenderness EXTREMITIES : No LE swelling/tenderness, no other conspicuous deformities noted NEUROLOGIC : Coherent, no facial asymmetry, no other gross focality Results & Data Results & Data ([facility]) Vital Signs (Past 12 Hours) Vital Signs Temp Pulse Pulse Resp BP BP Pulse Ox 04/24/20 22:22 79 16 143/89 H 98 04/24/20 21:02 37.2 C 76 18 162/104 H 98 Laboratory Results Laboratory Results WBC 7.60 K/uL (4.8-10.8) 04/24/20 21:16 RBC 4.76 M/uL (4.7-6.1) 04/24/20 21:16 Hgb 14.8 g/dL (14.0-18.0) 04/24/20 21:16 Hct 42.5 % (42-52) 04/24/20 21:16 MCV 89.3 fL (80-100) 04/24/20 21:16 MCH 31.1 pg (25-34) 04/24/20 21:16 MCHC 34.8 g/dL (32-36) 04/24/20 21:16 RDW Std Deviation 38.1 fL (36.4-46.3) 04/24/20 21:16 RDW Coeff of Jaci 11.8 % (11.5-14.5) 04/24/20 21:16 Plt Count 247 K/uL (130-400) 04/24/20 21:16 MPV 11.0 fL (7.4-10.4) H 04/24/20 21:16 Immature Gran % (Auto) 0.3 % 04/24/20 21:16 Neut % (Auto) 58.1 % 04/24/20 21:16 Lymph % (Auto) 28.3 % 04/24/20 21:16 [place] % (Auto) 11.2 % 04/24/20 21:16 Eos % (Auto) 2.0 % 04/24/20 21:16 Baso % (Auto) 0.1 % 04/24/20 21:16 Neut # (Auto) 4.42 K/uL (1.4-6.5) 04/24/20 21:16 Lymph # (Auto) 2.15 K/uL (1.2-3.4) 04/24/20 21:16 [place] # (Auto) 0.85 K/uL (0.11-0.59) H 04/24/20 21:16 Eos # (Auto) 0.15 K/uL (0-0.5) 04/24/20 21:16 Baso # (Auto) 0.01 K/uL (0-0.2) 04/24/20 21:16 Immature Gran # (Auto) 0.02 K/uL (0.00-0.02) 09/01/20 21:16 PT 10.0 Seconds (9.0-12.0) 04/24/20 21:16 INR 0.9 (0.9-1.1) 04/24/20 21:16 APTT 26.4 Seconds (21.0-31.0) 04/24/20 21:16 PTT Ratio 0.9 04/24/20 21:16 Sodium 137 mmol/L (136-145) 04/24/20 21:16 Potassium 3.8 mmol/L (3.5-5.1) 04/24/20 21:16 Chloride 102 mmol/L (98-107) 04/24/20 21:16 Carbon Dioxide 29 mmol/L (21-32) 04/24/20 21:16 Anion Gap 6.0 (3-11) 04/24/20 21:16 BUN 9 mg/dl (7-18) 04/24/20 21:16 Creatinine 1.00 mg/dl (0.6-1.4) 04/24/20 21:16 Est Cr Clr Drug Dosing 78.9 ml/min 04/24/20 21:16 Est GFR ( Amer) 100.6 04/24/20 21:16 Est GFR (Non-Af Amer) 86.8 04/24/20 21:16 BUN/Creatinine Ratio 8.8 (10-20) L 04/24/20 21:16 Glucose 104 mg/dl (70-99) H 04/24/20 21:16 Calcium 8.7 mg/dl (8.5-10.1) 04/24/20 21:16 Total Bilirubin 0.3 mg/dl (0.2-1) 04/24/20 21:16 AST 24 U/L (15-37) 04/24/20 21:16 ALT 35 U/L (12-78) 04/24/20 21:16 Alkaline Phosphatase 104 U/L (45-117) 04/24/20 21:16 Troponin I 0.066 ng/ml (0-0.045) H* 04/24/20 21:16 Total Protein 7.4 gm/dl (6.4-8.2) 04/24/20 21:16 Albumin 3.8 gm/dl (3.4-5.0) 04/24/20 21:16 Globulin 3.6 gm/dl (2.5-4.0) 04/24/20 21:16 Albumin/Globulin Ratio 1.1 (0.9-2) 04/24/20 21:16 Diagnostic Findings Chest x-ray as per my interpretation elevated right hemidiaphragm EKG as per my interpretation (04/24, 1128PM) Rate 65, NSR, normal axis, ST elevation inferior and lateral leads, ST depression septal leads
[2020-04-24] MEDS ORDERED: MoRPHine SULFATE 2 MG/ML CARP ONE (23:18)
[2020-04-24] MEDS ORDERED: fentaNYL citrate 100 MCG/2 ML VIAL ONE (23:39)
[2020-04-24] MEDS ORDERED: fentaNYL citrate 100 MCG/2 ML VIAL IV STA ×2 (23:40→23:49)
[2020-04-24] MEDS ORDERED: HEPARIN SODIUM/DEXTROSE 25,000 UNITS/500 ML BAG IV SCH (23:45)
[2020-04-24] MEDS ORDERED: SODIUM CHLORIDE 0.9% 500 ML IV ONE (23:56)
[2020-04-24] MEDS ORDERED: MIDAZOLAM HCL 1 MG/ML 2ML VIAL ONE (23:58)
[2020-04-25] MEDS ORDERED: TICAGRELOR 90 MG TAB PO ONE
[2020-04-25 00:15] LABS: Magnesium 2.2 mg/dl (1.8-2.4); Troponin I 0.15 ng/ml (0-0.045)
[2020-04-25] MEDS ORDERED: ATROPINE SULFATE 0.1 MG/ML 10ML SYR IV ONE (00:22)
[2020-04-25] MEDS ORDERED: NOREPINEPHRINE BITARTRATE 1 MG/ML 4 ML VIAL (CATH LAB USE ONLY) ONE ×2 (00:30→00:31)
[2020-04-25] MEDS ORDERED: HEPARIN (PORCINE) 1000 UNIT/ML 10 ML (CATH LAB USE ONLY) ONE ×2 (00:47→10:43)
[2020-04-25] MEDS ORDERED: NITROGLYCERIN SL 0.4 MG/TAB TAB SL PRN (01:45)
[2020-04-25] MEDS ORDERED: TRAMADOL HCL 50 MG TABLET PO PRN (01:45)
[2020-04-25] MEDS ORDERED: PROMETHAZINE HCL 12.5 MG in SODIUM CHLORIDE 0.9% 50 ML IV PRN (01:45)
[2020-04-25] MEDS ORDERED: ICU PROTOCOL FOR HYPERGLYCEMIA PRN (01:45)
[2020-04-25] MEDS ORDERED: LORazepam 0.25 MG/0.5 ML VIAL IV PRN (01:45)
[2020-04-25] MEDS ORDERED: MoRPHine SULFATE 2 MG/ML CARP IV PRN (01:53)
[2020-04-25] MEDS ORDERED: ONDANSETRON INJ 2 MG/ML 2 ML VIAL IV PRN (01:54)
--- NOTE | 2020-04-25 02:00 | Pre Anesthesia Assessment ---
Date of Service April 25, 2020 Pre Sedation Assessment Vital Signs Temp Pulse Pulse Resp BP BP Pulse Ox 04/25/20 00:03 90 16 136/95 92 04/24/20 23:42 74 16 96/74 L 98 04/24/20 23:34 69 16 90/66 L 99 04/24/20 23:28 71 16 80/57 L 98 04/24/20 23:11 74 16 136/95 98 04/24/20 22:22 79 16 143/89 H 98 04/24/20 21:02 99.0 F 76 18 162/104 H 98 Cardiovascular RRR, no murmur, no edema Respiratory normal respiratory effort, lungs clear to auscultation Pre-Sedation Airway Assessment Smoking Status: Never smoker Hx Sleep Apnea: No Hx Difficult Intubation: No Thyromental Distance: > or= 3.5 Finger Breadths Mallampati Class: III ASA: ASA3 Procedure Planning Contraindications for Sedation: none Current Medications Reviewed: Yes Notes The planned sedation has been discussed with the patient. Informed Consent was obtained. I have identified the patient, determined the appropriateness of sedation and have assessed the patient immediately prior to the procedure. All medicine(s) and interventions are by my order.
--- NOTE | 2020-04-25 02:01 | Post Anesthesia Assessment ---
Date of Service April 25, 2020 Post Sedation Assessment Vital Signs Temp Pulse Pulse Resp BP BP Pulse Ox 04/25/20 01:49 98.2 F 109 H 20 113/84 94 04/25/20 00:03 90 16 136/95 92 04/24/20 23:42 74 16 96/74 L 98 04/24/20 23:34 69 16 90/66 L 99 04/24/20 23:28 71 16 80/57 L 98 04/24/20 23:11 74 16 136/95 98 04/24/20 22:22 79 16 143/89 H 98 04/24/20 21:02 99.0 F 76 18 162/104 H 98 Recovery Score Activity: Moves 4 extremities Respiration: Deep Breath/Cough Circulation: +/-20% PreAnes Value Consciousness: Fully Awake Oxygen Saturation: O2 needed for >90% Discharge Sedation Level of Care: Fast Track Phase II Post Sedation Plan On clinical assessment, the patient appears to have tolerated the sedation without complications. Patient is recovering as anticipated. Patient will continue to be monitored by nursing and may be discharged when sedation discharge criteria are met per below protocol. Upon Completions of procedure up to 15 minutes continue every 5 minute vital signs and the P.A.R. score; then discharge to a Phase I or Fast Track to Phase II per the following guidelines: * Discharge Patient to appropriate Phase II area if PAR is 8 or greater or return to pre- procedure baseline. The post - procedure orders will be as directed. * If PAR score is less than 8 or not return to pre-procedure baseline then patient will follow Phase I monitoring till PAR is reached for Phase II. The Phase I may be done in procedure room or may call to secure a Phase I area. * If naloxone or flumazenil are used for reversal, hold in Phase I for continued monitoring from when last reversal dose was given for a minimum of 60 minutes or longer pending the nurse and/or physician discretion of patient condition before discharge to Phase II. Please call the Sedation Physician to re-evaluate and complete post-note for discharge to Phase II area. Do NOT discharge from procedure sedation or Phase 1 until post- sedation evaluation note is complete by procedure /sedation MD Sedation Discharge Instructions to be given to the patient at discharge to home.
[2020-04-25] MEDS ORDERED: FUROSEMIDE 20 MG in SYRINGE 0 ML IV ONE (02:11)
--- NOTE | 2020-04-25 02:14 | Cardiac Catheterization ---
ACC Data: Configuration Management Manager Cardiac Status Clinical evaluation leading to the procedure CAD Presenation: STEMI Anginal Classification: CCS IV Heart Failure: No Cardiogenic Shock within 24 Hours: No Cardiac Arrest within 24 Hours: No Imaging Studies Past 6 Months: No Stress Studies Past 6 Months: No Diagnostic Physicians Name: Víctor Craig MD Status: Emergency Closure Device Percutaneous Entry Location: Radial Closure Device: Radial Band Recommendations: PCI without planned CABG PCI Indication: Immediate PCI for STEMI First Noted: Subsequent EKG Lesion Segment Name: Mid circumflex Culprit Artery: Yes Stenosis Prior to Rx (%): 100 Chronic Total Occlusion: No IVUS: No FFR: No Pre-Procedure VIKTORIA Flow: 0 Previously Treated Lesion: No Lesion Complexity: Non-High/Non-C Lesion Length (mm): 12 Thrombus Present: Yes Bifurcation Lesion: No Guidewire Across Lesion: Stenosis Post-Procedure (%): 0 Post-Procedure VIKTORIA Flow: 3 Devices(s) Deployed: Yes Yes Lesion #2 Segment Name: Ostial OM 2 Culprit Artery: No Stenosis Prior to Rx (%): 80 Chronic Total Occlusion: No IVUS: No FFR: No Pre-Procedure VIKTORIA Flow: 3 Previously Treated Lesion: No Lesion Complexity: Non-High/Non-C Lesion Length (mm): 12 Thrombus Present: No Bifurcation Lesion: Yes Guidewire Across Lesion: Yes Stenosis Post-Procedure (%): 0 Post-Procedure VIKTORIA Flow: 3 Devices(s) Deployed: Yes Intraprocedure Events Significant Disection: No Perforation: No Cardiac Cath Procedure Full Procedure Date April 25, 2020 Pre-Procedure Diagnosis Pre-Procedure Diagnosis: STEMI AUC Score AUC Score: 9 Post-Procedure Diagnosis Post-Procedure Diagnosis: Severe CAD Procedure(s) Performed Procedure(s) Performed: Coronary Angiography, Left Heart Cath and Drug Eluting Stent Stone Decorator Víctor Craig MD Compress Trucker(s) Kike Estimated Blood Loss Estimated Blood Loss: 15 Medication(s) Medication(s): Fentanyl, Heparin, Lidocaine 1%, Nicardipine, Nitroglycerin and Versed Medication(s): Ticagrelor Summary of Findings Indication: STEMI/Heart Alert Access: 6 Fr slender right radial art Catheters: Ikari 3.5 guide, diagnostic JL 3 5 Findings: LM -short, essentially separate ostium LAD -medium caliber vessel, 50% ostial stenosis, mid to distal luminal irregularities as wraps around apex. Medium caliber second diagonal without significant disease. Circumflex -large caliber, dominant, 100% acute mid occlusion. After flow reestablished noted to have an 80 to 90% ostial stenosis of large OM 2, 50 to 60% stenosis in medium caliber OM 3. PLB/PDA without significant disease RCA -nondominant, small without significant disease LVEDP -28 -- PCI -- Antithrombotic therapy: Heparin, ticagrelor Procedure: Left main cannulated with Ikari 3.5 guide Print Line Supervisor 50 wire passed across lesion into distal OM 3 Mid circumflex lesion predilated with 2.5 compliant balloon OM 2 wired with commercial airline pilot 50 wire Ostial OM 2 dilated with 2.5 compliant balloon Dilated ostial OM 2 lesion stented with 2.75 x 15 mm Xience Johana drug-eluting stent Stent postdilated with stent balloon With some difficulty, requiring aid of a guide liner mid circumflex stented with 3.5 x 15 mm Tru drug-eluting stent Stent post-dilated with 3.75 noncompliant balloon IC vasodilators administered for spasm Post procedure VIKTORIA 3 flow, stents well expanded with minimal residual stenosis and no apparent cardiac complications. During procedure transient hypotension requiring initiation of norepinephrine was weaned off prior to completion of procedure. Arterial Closure: TR band Summary: 1. Inferolateral STEMI/100% acute mid dominant circumflex occlusion 2. Moderate non-culprit coronary artery disease -50% ostial LAD stenosis 3. Elevated intracardiac filling pressure 4. Successful PCI of mid circumflex with 3.5 x 15 mm Astor drug-eluting stent (postdilated with 3.75 NC). 5. Successful PCI of ostial OM 2 with 2.75 x 15 mm Xience drug-eluting stent. Recommendations: Admit to ICU for continued monitoring Loaded with ticagrelor 180 mg in ED Continue dual-antiplatelet therapy for at least 1 year. Trend troponins until peak, Check Echo Uptitrate beta-leyla/JENNIFER as BP allows High-dose statin Consult cardiac Rehab Patient appears to have at least moderate ostial LAD stenosis (difficult to visualize angiographically). Recommend further evaluation with IVUS +/-during hospitalization. Hemodynamics Rest Ao:: 116/57/81 Final Ao: 107/63/84 LV: 101/28 Recommendations Recommendations: PCI without planned CABG Specimens Specimens: None Radiation Exposure (mGy) 3201 Contrast (mls) 120, Fluids (cc crystalloids) Fluids (cc crystalloids): 850 Drains Drains: None Anesthesia Moderate Procedural Complication(s) None Disposition ICU I attest to the content of the Intraoperative Record and any orders documented therein. Any exceptions are noted below. [facility] Card Cath Procedure Codes Cardiac Catheterization Procedure 1: Cardiovascular Cath Procedures: 41325 Coronaries and LHC (+/-LV) Moderate Sedation Procedure 1: Sedation/Anesthesia: 95324 Mod Sedation by the same physician;Init15 Min Child Age 5 & Up Procedure 2: Sedation/Anesthesia: 89210 Mod Sedation by the same physician; Ea [id number] Minutes Stenting Procedure 1: Cardiovascular Stent Procedures: 62582 Perc transluminal revascularization of acute sub/total occl, aMI PG Care Time/CCT Total # of Minutes Spent Total Time Spent with Patient: Total time spent is greater than 50% in coordination of care (as documented) at patient's floor/unit and/or counseling patient:
[2020-04-25] MEDS ORDERED: NSS + 20MEQ KCL 20 MEQ/1,000 ML BAG IV SCH (02:15)
[2020-04-25] MEDS ORDERED: FUROSEMIDE 40 MG/4 ML VIAL IV ONE ×2 (02:18→02:30)
--- NOTE | 2020-04-25 02:25 | Critical Care Consultation ---
Date of Consultation April 25, 2020 Assessment & Plan (1) STEMI (ST elevation myocardial infarction): Impression: 49-year-old male presents to the ICU following STEMI and status post PCI with SALLY with 1 stent to the mid circumflex and stent x1 to the ostial OM 2 Neuro - CAM ICU: Negative Cardiac - STEMIpatient with inferolateral STEMI with 100% occlusion of the mid dominant circumflex, moderate non-culprit CAD 50% ostial LAD stenosis -Noted to have elevated intracardiac filling pressures -Status post PCI to mid circumflex with SALLY and PCI of ostial OM 2 with SALLY -Patient received loading dose of ticagrelor in the emergency department -Trend troponins for peak -Follow-up echo in a.m. -Start BB, ASA, Brilinta, statin in a.m. -Continue to monitor on telemetry Respiratory - Hypoxia/pulmonary edemapatient with fine crackles on exam, requiring 6 L nasal cannula following acute OK -No prior history of pulmonary disease, patient does not smoke -Given 20 IV Lasix, weaning oxygen as tolerated -Continuous monitoring on pulse ox GI - Heart healthy diet RENAL/LYTES - Creatinine within normal limits, monitor electrolytes and replete as indicated - Strict I's and O's ENDO - No history of diabetes or thyroid disease Follow-up hemoglobin A1c and TSH ICU hyperglycemic protocol HEME - H&H stable, monitor ID - No indication for infectious process at this time LINES/IV ACCESS - Peripheral IVs DVT PROPHYLAXIS - SCDs Thank you for allowing us to participate in the care of this patient. Please refer to my attending physician's documentation for any further recommendations. (2) Hypoxia: (3) Pulmonary edema cardiac cause: (4) Chest pain: (5) Hyperlipidemia: (6) Coronary artery disease: Supervising Physician Co-Signing Physician Notes I have personally evaluated and examined this patient. I agree with assessment and plan of Ross HERRON. Discussed the case with Dr. 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 History of Present Illness Attending Physician: Bobby Parmar MD History of Present Illness Patient is a 49-year-old male without prior cardiac history but with family history of CAD. Presented to the emergency department earlier today with complaints of chest pain associated with activity that started around 2 PM with associated left arm numbness. Patient states that he was climbing a ladder at work and began to have chest pain, but was relieved initially with rest. Patient states that chest pain and left arm numbness continued to worsen and he presented to the emergency department at approximately 9 PM. He had a mild elevation in his troponin and EKG showed subtle ST changes. Proximately 2 hours later he developed severe chest pain and repeat EKG showed inferolateral ST elevations with significant anterior ST depressions. Patient had he also become hypotensive and diaphoretic. He was taken to the [facility] [facility] where he was found to have an occluded mid circumflex and received PCI with SALLY to the mid circumflex and SALLY to the large ostial OM 2. He was temporarily placed on norepinephrine drip which is since weaned. Patient now presents to the ICU following cath with PCI x2. He is alert and oriented and appears comfortable. He is hemodynamically stable and no longer requiring vasopressors. His chest pain is resolved following cath. He denies headache, dizziness, syncope, nausea or vomiting, shortness of breath, palpitations or any continued chest pain. He denies any left arm numbness or tingling. He denies recent illness or fevers. Patient to remain in ICU for further monitoring and management following STEMI. Allergies Allergy/AdvReac Type Severity Reaction Status Date / Time pollen extracts Allergy Intermediate ITCHY Verified 04/24/20 22:07 EYES, RUNNY NOSE, CONGESTION Penicillins Allergy Unknown HAPPENED Verified 04/24/20 22:07 A CHILD Home Medications Home Medications Medication Instructions Recorded Confirmed Type mirtazapine 45 mg tablet 45 mg PO DAILY #90 tab 03/17/19 04/24/20 Rx omeprazole 40 mg capsule,delayed 40 mg PO DAILY #90 cap 03/17/19 04/24/20 Rx release epinephrine 0.3 mg/0.3 mL 0.3 mg IM ONCE PRN ea 06/14/19 04/24/20 History injection, auto-injector diclofenac sodium [Voltaren] 0 g TOPICAL QID PRN 04/24/20 04/24/20 History lactobacillus combination no.4 0 mmu cells PO DAILY 04/24/20 04/24/20 History [Probiotic] Patient History Medical History Lyme disease Surgical History S/P laparoscopic cholecystectomy Family History Other Family history non-contributory Social History Smoking Status: Never smoker Hx Alcohol Use: No Hx Substance Use: No Preferred Language: Spanish Communication Ability: Effective Beliefs That Will Affect Care: None marital status: Single Current Living Situation: Alone current occupational status: employed 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 Feels Safe at Home: Yes Safety Concerns: Feels Safe At This Time Seatbelt Use: always Review of Systems Review of Systems: All systems reviewed & are unremarkable except as noted in HPI & below Physical Exam Constitutional: WD/WN, vitals as above Eyes: PERRL, conjunctivae normal, anicteric sclerae ENMT: external ear and nose normal, oropharynx normal Neck: trachea midline, no thyromegaly Respiratory: normal respiratory effort and symmetric chest movement; no labored breathing Nonproductive cough, fine crackles auscultated bilaterally in lung bases Cardiovascular: RRR, no murmur, no edema Heart Sounds: normal S1 and normal S2 Vessels: no JVD Extremities: normal capillary refill; no edema Gastrointestinal (Abdomen): normal bowel sounds, soft, nontender, no hepatosplenomegaly Skin: no rashes, warm and dry Neurologic: PERRL, EOMI, accommodation nl, no face palsy, no dysarthria Psychiatric: A+Ox3, euthymic affect Results & Data Results & [facility] ([facility]) Vital Signs (Past 12 Hours) Vital Signs Temp Pulse Pulse Resp BP BP Pulse Ox 04/25/20 01:49 36.8 C 109 H 20 113/84 94 04/25/20 00:03 90 16 136/95 92 04/24/20 23:42 74 16 96/74 L 98 04/24/20 23:34 69 16 90/66 L 99 04/24/20 23:28 71 16 80/57 L 98 04/24/20 23:11 74 16 136/95 98 04/24/20 22:22 79 16 143/89 H 98 04/24/20 21:02 37.2 C 76 18 162/104 H 98 Coding Level of Care Code 71522 Office/OBS Consult Lvl 5 Diagnoses STEMI (ST elevation myocardial infarction) I21.3 Hypoxia R09.02 Pulmonary edema cardiac cause I50.1 Chest pain R07.9 Hyperlipidemia E78.5 Coronary artery disease I25.10
--- NOTE | 2020-04-25 02:25 | Cardiology Consultation ---
Date of Consultation April 25, 2020 Assessment & Plan (1) STEMI (ST elevation myocardial infarction): --Post primary PCI with SALLY to mid circumflex occlusion and additional stent to ostial OM 2 2. At least moderate non-culprit ostial LAD disease 3. Transient hypotension Patient chest pain-free following primary PCI for acute mid circumflex occlusion. Plan to admit to ICU for further monitoring. Trend troponins until peak and will check an echocardiogram in the a.m. Patient loaded with ticagrelor and will continue on DAPT for at least 1 year. Try low-dose beta-leyla in a.m. Started on high-dose statin. Lipids, A1c pending in a.m. His ostial LAD appears to have an at least moderate stenosis. LAD stenosis difficult to visualize angiographically and will plan for additional assessment with IVUS possible FFR later in his hospitalization. History of Present Illness Attending Physician: Bobby Parmar MD History of Present Illness 49-year-old man seen emergently in the ED after heart alert activated. Patient with no prior cardiac history. Risk factors include questionable dyslipidemia but not on any therapy and family history of premature coronary disease involving his father and brother. Non-smoker. Other medical issues include chronic idiopathic urticaria, GERD. Patient developed left-sided chest pain this afternoon while at work. Stuttering symptoms, worse with exertion. No prior similar chest pain in the past. Presented to ED approximately 9 PM on 04/24/2020. Initial EKG showed sinus rhythm with subtle dynamic ST changes, troponin minimally elevated and was to be admitted for suspected ACS. Approximately 2 hours later developed severe persistent chest pain and repeat ECG showed inferolateral ST elevations and significant anterior ST depressions. Patient hypotensive, ill-appearing, diaphoretic. Patient taken emergently for cardiac catheterization where he was found to have an occluded mid circumflex which was treated with a single drug-eluting stent. A large ostial OM 2 lesion was also treated with another drug-eluting stent. Of note also found to have a at least 50% ostial LAD stenosis. Procedure course complicated by transient hypotension requiring temporary norepinephrine. Post procedure patient chest pain-free, hemodynamically stable off vasopressors. Allergies Allergy/AdvReac Type Severity Reaction Status Date / Time pollen extracts Allergy Intermediate ITCHY Verified 04/24/20 22:07 EYES, RUNNY NOSE, CONGESTION Penicillins Allergy Unknown HAPPENED Verified 04/24/20 22:07 A CHILD Home Medications Home Medications Medication Instructions Recorded Confirmed Type mirtazapine 45 mg tablet 45 mg PO DAILY #90 tab 03/17/19 04/24/20 Rx omeprazole 40 mg capsule,delayed 40 mg PO DAILY #90 cap 03/17/19 04/24/20 Rx release epinephrine 0.3 mg/0.3 mL 0.3 mg IM ONCE PRN ea 06/14/19 04/24/20 History injection, auto-injector diclofenac sodium [Voltaren] 0 g TOPICAL QID PRN 04/24/20 04/24/20 History lactobacillus combination no.4 0 mmu cells PO DAILY 04/24/20 04/24/20 History [Probiotic] Patient History Medical History Lyme disease Surgical History S/P laparoscopic cholecystectomy Family History Other Family history non-contributory Social History Smoking Status: Never smoker Hx Alcohol Use: No Hx Substance Use: No Preferred Language: Swedish Communication Ability: Effective Beliefs That Will Affect Care: None marital status: Single Current Living Situation: Alone current occupational status: employed 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 2+ radial pulses Neuro: Nonfocal Psych: Alert orient x3, normal affect and mood Results & Data ([facility]) Vital Signs (Past 12 Hours) Vital Signs Temp Pulse Pulse Resp BP BP Pulse Ox 04/25/20 01:49 98.2 F 109 H 20 113/84 94 04/25/20 00:03 90 16 136/95 92 04/24/20 23:42 74 16 96/74 L 98 04/24/20 23:34 69 16 90/66 L 99 04/24/20 23:28 71 16 80/57 L 98 04/24/20 23:11 74 16 136/95 98 04/24/20 22:22 79 16 143/89 H 98 04/24/20 21:02 99.0 F 76 18 162/104 H 98 PG Care Time/CCT Total # of Minutes Spent Total Time Spent with Patient: Total time spent is greater than 50% in coordination of care (as documented) at patient's floor/unit and/or counseling patient: Coding Level of Care Code 32416 Inpt Consult Level 5 Diagnoses STEMI (ST elevation myocardial infarction) I21.3
[2020-04-25 04:42] LABS: Basophils # (auto) 0.01 K/uL (0-0.2); Basophils % (auto) 0.1 %; Eosinophils # (auto) 0.01 K/uL (0-0.5); Eosinophils % (auto) 0.1 %; Hematocrit (blood only) 40.8 % (42-52); Hemoglobin 14.5 g/dL (14.0-18.0); Immature Granulocytes # (auto) 0.03 K/uL (0.00-0.02); Immature Granulocytes % (auto) 0.2 %; Lymphocytes # (auto) 0.95 K/uL (1.2-3.4); Lymphocytes % (auto) 7.2 %; Mean Corpuscular Hemoglobin 31.3 pg (25-34); Mean Corpuscular Hgb Conc 35.5 g/dL (32-36); Mean Corpuscular Volume 87.9 fL (80-100); Mean Platelet Volume 10.8 fL (7.4-10.4); Monocytes # (auto) 0.89 K/uL (0.11-0.59); Monocytes % (auto) 6.7 %; Neutrophils # (auto) 11.32 K/uL (1.4-6.5); Neutrophils % (auto) 85.7 %; Platelet Count 247 K/uL (130-400); RDW Coefficient of Variation 11.9 % (11.5-14.5); Red Blood Count 4.64 M/uL (4.7-6.1); White Blood Count 13.21 K/uL (4.8-10.8)
[2020-04-25 04:59] LABS: BUN Creatinine Ratio 10.2 (10-20); Calcium 8.2 mg/dl (8.5-10.1); Creatinine Clr Calc Pharmacy 83.9 ml/min; Est GFR (African American) 108.4; Est GFR (Non-African American) 93.5; Potassium 3.6 mmol/L (3.5-5.1)
[2020-04-25] MEDS ORDERED: STAT IV Infusion **Titration per Protocol STA (05:50)
[2020-04-25] MEDS ORDERED: POTASSIUM CHLORIDE 20 MEQ TABCR PO ONE (06:00)
[2020-04-25] MEDS ORDERED: NOREPINEPHRINE BIT INJ 8 MG in DEXTROSE 5% 500 ML IV SCH (06:00)
[2020-04-25 06:35] LABS: Estimated Average Glucose 105 mg/dl; Hemoglobin A1C 5.3 % (4.5-5.6)
--- NOTE | 2020-04-25 06:46 | XRay Report ---
XR chest 1V portable HISTORY: 49 years-old Male Chest Pain acute atypical chest pain COMPARISON: None TECHNIQUE: Portable AP view of the chest FINDINGS: Cardiomediastinal and hilar silhouettes are within normal limits. No pneumothorax, pleural effusion, airspace consolidation or overt pulmonary edema. Bones appear grossly intact. Degenerative changes of the shoulders and spine. IMPRESSION: No acute process. ACT 112: Negative or not required by law. The above report was generated using voice recognition software. It may contain grammatical, syntax o r spelling errors. Electronically signed by: Bret Cartagena M.D. 04/25/2020 6:44 AM
[2020-04-25] MEDS: ASPIRIN 81 MG ECTAB PO SCH (07:55)
[2020-04-25] MEDS: PANTOprazole 40 MG TAB PO SCH (07:55)
--- NOTE | 2020-04-25 09:33 | XRay Report ---
XR cervical spine 2 or 3V CLINICAL HISTORY: neck pain COMPARISON STUDY: No previous studies for comparison. FINDINGS: There are mild multilevel degenerative changes with prominent anterior osteophytes at the C 4-5 level. No fractures or subluxations are visualized. IMPRESSION: Degenerative changes most pronounced the C4-5 level. No fractures or subluxations identi fied ACT 112: Negative or not required by law. Electronically signed by: Sal Cornejo M.D. 04/25/2020 9:32 AM
[2020-04-25] MEDS: LACTOBACILLUS ACIDOPHILUS (FLORANEX) TAB PO SCH (09:55)
[2020-04-25] MEDS: METOPROLOL TARTRATE 25 MG TAB PO SCH ×2 (10:32→21:05)
[2020-04-25] MEDS: ATORVASTATIN 40 MG TAB PO SCH (10:32)
[2020-04-25] MEDS ORDERED: NiCARDipine HCL INJ 2.5 MG/ML 10 ML AMP ONE (10:43)
[2020-04-25] MEDS ORDERED: fentaNYL citrate 100 MCG/2 ML VIAL ONE (10:44)
[2020-04-25] MEDS ORDERED: MIDAZOLAM HCL 1 MG/ML 2ML VIAL ONE (10:44)
[2020-04-25] MEDS ORDERED: NITROGLYCERIN/D5W 100MCG/ML 20ML SYR ONE (10:44)
--- NOTE | 2020-04-25 11:56 | Hospitalist Progress Note ---
Date of Service April 25, 2020 Assessment & Plan (1) STEMI (ST elevation myocardial infarction): ST elevation myocardial infarction CXR:No acute process. S/P PCI to mid circumflex, ostial OM 2 with drug-eluting stent Continue aspirin, Brilinta, statin, metoprolol Appreciate cardiology/critical care input Echo as able Plan for repeat cardiac catheterization today HTN on presentation Currently hypotensive Monitor Hyperlipidemia Continue statin H/O disseminated Lyme disease Completed treatment Anxiety/mood disorder Continue with clozapine GERD Continue PPI DVT PX Was on IV heparin SCDs for now Code Status Full code Disposition Expected discharge home when medically stable Admission and Anticipated Discharge Date Admission Date: April 25, 2020 Subjective Patient is seen and examined at bedside Complains of mild left-sided chest pain radiating to the left arm associated with heaviness Had an episode of nausea with vomiting this morning Denies shortness of breath, dizziness Reports chronic mild abdominal pain--unchanged Plan for repeat cardiac catheterization today Offers no other complaints Review of Systems Review of Systems: All systems reviewed & are unremarkable except as noted in HPI & below Physical Exam Physical Exam: Physical Exam: Vitals signs as noted above General Appearance:Moderately built and nourished, no apparent distress Head: normocephalic, Atraumatic Eyes: normal inspection, EOMI Neck: supple, Trachea midline Respiratory/Chest: Normal breath sounds, CTA Cardiovascular: S1, S2, No murmur, =Tachycardia Abdomen/GI:Soft, Non tender, Bowel sounds present Extremities/Musculoskelatal:normal inspection, no edema Neurologic/Psych:AAOX3, grossly no focal neurological deficits Skin: normal color, warm Results & Data Results & Data ([facility]) Vital Signs (Past 12 Hours) Vital Signs Temp Pulse Pulse Pulse Resp BP BP 04/25/20 10:32 104 H 29 H 04/25/20 10:31 100 H 24 96/65 L 04/25/20 10:00 98 H 26 H 04/25/20 09:30 04/25/20 09:24 105 H 20 04/25/20 09:23 88 24 101/71 04/25/20 08:00 37.3 C 95 H 24 04/25/20 07:48 88 24 118/80 04/25/20 07:23 89 24 106/71 04/25/20 06:07 90 40 H 99/64 L 04/25/20 05:58 89 26 H 86/55 L 04/25/20 05:52 94 H 28 H 82/50 L 04/25/20 05:49 95 H 28 H 60/44 L 04/25/20 05:41 95 H 19 103/69 04/25/20 05:23 91 H 20 92/70 L 04/25/20 04:13 36.7 C 93 H 22 101/65 04/25/20 03:58 94 H 22 96/64 L 04/25/20 03:43 94 H 24 100/70 04/25/20 03:40 93 H 20 100/70 04/25/20 03:10 99 H 22 98/67 L 04/25/20 02:40 103 H 17 116/84 04/25/20 02:30 100 H 18 106/63 04/25/20 02:15 108 H 22 92/69 L 04/25/20 02:00 107 H 18 126/78 04/25/20 01:49 36.8 C 109 H 20 04/25/20 01:45 125 H 20 113/84 04/25/20 00:03 90 16 BP Pulse Ox 04/25/20 10:32 94 04/25/20 10:31 95 04/25/20 10:00 90 04/25/20 09:30 95 04/25/20 09:24 96 04/25/20 09:23 95 04/25/20 08:00 97 04/25/20 07:48 96 04/25/20 07:23 96 04/25/20 06:07 95 04/25/20 05:58 93 04/25/20 05:52 95 04/25/20 05:49 95 04/25/20 05:41 96 04/25/20 05:23 97 04/25/20 04:13 94 04/25/20 03:58 96 04/25/20 03:43 92 04/25/20 03:40 94 04/25/20 03:10 93 04/25/20 02:40 96 04/25/20 02:30 95 04/25/20 02:15 93 04/25/20 02:00 93 04/25/20 01:49 113/84 94 04/25/20 01:45 96 04/25/20 00:03 136/95 92 Laboratory Results Short CBC 04/24/20 04/25/20 Range/Units 21:16 04:25 WBC 7.60 13.21 H (4.8-10.8) K/uL Hgb 14.8 14.5 (14.0-18.0) g/dL Hct 42.5 40.8 L (42-52) % Plt Count 247 247 (130-400) K/uL BMP 04/24/20 04/25/20 21:16 04:25 Sodium 137 140 Potassium 3.8 3.6 Chloride 102 109 H Carbon Dioxide 29 23 BUN 9 10 Creatinine 1.00 0.94 Glucose 104 H 129 H Calcium 8.7 8.2 L Cardiac Enzymes 04/24/20 04/24/20 04/25/20 Range/Units 21:16 23:27 07:53 Troponin I 0.066 H* 0.150 H* 99.800 H* (0-0.045) ng/ml Liver Function 04/24/20 Range/Units 21:16 Total Bilirubin 0.3 (0.2-1) mg/dl AST 24 (15-37) U/L ALT 35 (12-78) U/L Alkaline Phosphatase 104 (45-117) U/L Albumin 3.8 (3.4-5.0) gm/dl
--- NOTE | 2020-04-25 11:58 | Post Anesthesia Assessment ---
Date of Service April 25, 2020 Post Sedation Assessment Vital Signs Temp Pulse Pulse Pulse Resp BP BP 04/25/20 10:32 104 H 29 H 04/25/20 10:31 100 H 24 96/65 L 04/25/20 10:00 98 H 26 H 04/25/20 09:30 04/25/20 09:24 105 H 20 04/25/20 09:23 88 24 101/71 04/25/20 08:00 99.1 F 95 H 24 04/25/20 07:48 88 24 118/80 04/25/20 07:23 89 24 106/71 04/25/20 06:07 90 40 H 99/64 L 04/25/20 05:58 89 26 H 86/55 L 04/25/20 05:52 94 H 28 H 82/50 L 04/25/20 05:49 95 H 28 H 60/44 L 04/25/20 05:41 95 H 19 103/69 04/25/20 05:23 91 H 20 92/70 L 04/25/20 04:13 98.1 F 93 H 22 101/65 04/25/20 03:58 94 H 22 96/64 L 04/25/20 03:43 94 H 24 100/70 04/25/20 03:40 93 H 20 100/70 04/25/20 03:10 99 H 22 98/67 L 04/25/20 02:40 103 H 17 116/84 04/25/20 02:30 100 H 18 106/63 04/25/20 02:15 108 H 22 92/69 L 04/25/20 02:00 107 H 18 126/78 04/25/20 01:49 98.2 F 109 H 20 04/25/20 01:45 125 H 20 113/84 04/25/20 00:03 90 16 04/24/20 23:42 74 16 04/24/20 23:34 69 16 04/24/20 23:28 71 16 04/24/20 23:11 74 16 136/95 04/24/20 22:22 79 16 04/24/20 21:02 99.0 F 76 18 162/104 H BP Pulse Ox 04/25/20 10:32 94 04/25/20 10:31 95 04/25/20 10:00 90 04/25/20 09:30 95 04/25/20 09:24 96 04/25/20 09:23 95 04/25/20 08:00 97 04/25/20 07:48 96 04/25/20 07:23 96 04/25/20 06:07 95 04/25/20 05:58 93 04/25/20 05:52 95 04/25/20 05:49 95 04/25/20 05:41 96 04/25/20 05:23 97 04/25/20 04:13 94 04/25/20 03:58 96 04/25/20 03:43 92 04/25/20 03:40 94 04/25/20 03:10 93 04/25/20 02:40 96 04/25/20 02:30 95 04/25/20 02:15 93 04/25/20 02:00 93 04/25/20 01:49 113/84 94 04/25/20 01:45 96 04/25/20 00:03 136/95 92 04/24/20 23:42 96/74 L 98 04/24/20 23:34 90/66 L 99 04/24/20 23:28 80/57 L 98 04/24/20 23:11 98 04/24/20 22:22 143/89 H 98 04/24/20 21:02 98 Recovery Score Activity: Moves 4 extremities Respiration: Deep Breath/Cough Circulation: +/-20% PreAnes Value Consciousness: Fully Awake Oxygen Saturation: O2 needed for >90% Discharge Sedation Level of Care: Fast Track Phase II Post Sedation Plan On clinical assessment, the patient appears to have tolerated the sedation without complications. Patient is recovering as anticipated. Patient will continue to be monitored by nursing and may be discharged when sedation discharge criteria are met per below protocol. Upon Completions of procedure up to 15 minutes continue every 5 minute vital signs and the P.A.R. score; then discharge to a Phase I or Fast Track to Phase II per the following guidelines: * Discharge Patient to appropriate Phase II area if PAR is 8 or greater or return to pre- procedure baseline. The post - procedure orders will be as directed. * If PAR score is less than 8 or not return to pre-procedure baseline then patient will follow Phase I monitoring till PAR is reached for Phase II. The Phase I may be done in procedure room or may call to secure a Phase I area. * If naloxone or flumazenil are used for reversal, hold in Phase I for continued monitoring from when last reversal dose was given for a minimum of 60 minutes or longer pending the nurse and/or physician discretion of patient condition before discharge to Phase II. Please call the Sedation Physician to re-evaluate and complete post-note for discharge to Phase II area. Do NOT discharge from procedure sedation or Phase 1 until post- sedation evaluation note is complete by procedure /sedation MD Sedation Discharge Instructions to be given to the patient at discharge to home.
--- NOTE | 2020-04-25 11:58 | Pre Anesthesia Assessment ---
Date of Service April 25, 2020 Pre Sedation Assessment Vital Signs Temp Pulse Pulse Pulse Resp BP BP 04/25/20 10:32 104 H 29 H 04/25/20 10:31 100 H 24 96/65 L 04/25/20 10:00 98 H 26 H 04/25/20 09:30 04/25/20 09:24 105 H 20 04/25/20 09:23 88 24 101/71 04/25/20 08:00 99.1 F 95 H 24 04/25/20 07:48 88 24 118/80 04/25/20 07:23 89 24 106/71 04/25/20 06:07 90 40 H 99/64 L 04/25/20 05:58 89 26 H 86/55 L 04/25/20 05:52 94 H 28 H 82/50 L 04/25/20 05:49 95 H 28 H 60/44 L 04/25/20 05:41 95 H 19 103/69 04/25/20 05:23 91 H 20 92/70 L 04/25/20 04:13 98.1 F 93 H 22 101/65 04/25/20 03:58 94 H 22 96/64 L 04/25/20 03:43 94 H 24 100/70 04/25/20 03:40 93 H 20 100/70 04/25/20 03:10 99 H 22 98/67 L 04/25/20 02:40 103 H 17 116/84 04/25/20 02:30 100 H 18 106/63 04/25/20 02:15 108 H 22 92/69 L 04/25/20 02:00 107 H 18 126/78 04/25/20 01:49 98.2 F 109 H 20 04/25/20 01:45 125 H 20 113/84 04/25/20 00:03 90 16 04/24/20 23:42 74 16 04/24/20 23:34 69 16 04/24/20 23:28 71 16 04/24/20 23:11 74 16 136/95 04/24/20 22:22 79 16 04/24/20 21:02 99.0 F 76 18 162/104 H BP Pulse Ox 04/25/20 10:32 94 04/25/20 10:31 95 04/25/20 10:00 90 04/25/20 09:30 95 04/25/20 09:24 96 04/25/20 09:23 95 04/25/20 08:00 97 04/25/20 07:48 96 04/25/20 07:23 96 04/25/20 06:07 95 04/25/20 05:58 93 04/25/20 05:52 95 04/25/20 05:49 95 04/25/20 05:41 96 04/25/20 05:23 97 04/25/20 04:13 94 04/25/20 03:58 96 04/25/20 03:43 92 04/25/20 03:40 94 04/25/20 03:10 93 04/25/20 02:40 96 04/25/20 02:30 95 04/25/20 02:15 93 04/25/20 02:00 93 04/25/20 01:49 113/84 94 04/25/20 01:45 96 04/25/20 00:03 136/95 92 04/24/20 23:42 96/74 L 98 04/24/20 23:34 90/66 L 99 04/24/20 23:28 80/57 L 98 04/24/20 23:11 98 04/24/20 22:22 143/89 H 98 04/24/20 21:02 98 Cardiovascular RRR, no murmur, no edema Respiratory normal respiratory effort, lungs clear to auscultation Pre-Sedation Airway Assessment Smoking Status: Never smoker Hx Sleep Apnea: No Hx Difficult Intubation: No Thyromental Distance: > or= 3.5 Finger Breadths Mallampati Class: III ASA: ASA3 Procedure Planning Contraindications for Sedation: none Current Medications Reviewed: Yes Notes The planned sedation has been discussed with the patient. Informed Consent was obtained. I have identified the patient, determined the appropriateness of sedation and have assessed the patient immediately prior to the procedure. All medicine(s) and interventions are by my order.
--- NOTE | 2020-04-25 12:09 | Cardiac Catheterization ---
[facility] Data: [facility] Cardiac Status Clinical evaluation leading to the procedure CAD Presenation: STEMI Anginal Classification: CCS IV Heart Failure: No Cardiogenic Shock within 24 Hours: Yes Cardiac Arrest within 24 Hours: No Imaging Studies Past 6 Months: Yes Stress Studies Past 6 Months: No Diagnostic Physicians Name: Víctor Craig MD Status: Elective Closure Device Closure Device: Radial Band Recommendations: Medical Therapy and/or Counseling Intraprocedure Events Significant Disection: No Perforation: No Cardiac Cath Procedure Full Procedure Date April 25, 2020 Pre-Procedure Diagnosis Pre-Procedure Diagnosis: CAD AUC Score AUC Score: 7 Post-Procedure Diagnosis Post-Procedure Diagnosis: Moderate CAD and Elevated Intracardiac Pressures Procedure(s) Performed Procedure(s) Performed: Coronary Angiography, Left Heart Cath and IVUS Director Validation Víctor Craig MD Security Systems Manager(s) Federicouck Estimated Blood Loss Estimated Blood Loss: 10 Medication(s) Medication(s): Fentanyl, Heparin, Lidocaine 1%, Nicardipine, Nitroglycerin and Versed Summary of Findings Indication: Patient post procedure day 1 following inferolateral STEMI yesterday found to have an occluded dominant mid circumflex treated with 1 SALLY to mid circumflex and 1 SALLY to ostium of large third OM. Persistent chest pain, nausea vomiting this morning. Patient previously noted to have at least a moderate stenosis at ostium of LAD. Brought back to [facility] for further evaluation with IVUS Access: 6 Fr slender right radial art Catheters: JL 3.5 guide, pigtail Findings: LM -essentially separate ostium LAD -medium caliber vessel, 50% ostial stenosis, mid to distal luminal irregularities as wraps around apex. Medium caliber second diagonal without significant disease. Circumflex -large caliber, dominant, mid circumflex stent widely patent, OM 3 stent widely patent. Mild residual stenosis in distal circumflex after takeoff of OM 3. VIKTORIA-3 flow throughout RCA -not visualized currentlyyesterday nondominant, small, without significant disease LVEDP -18 --IVUS of proximal LAD, mid circumflex stent-- Antithrombotic therapy: Heparin Procedure: Left main cannulated with JL 3.5 guide BMW wire passed into distal LAD [place] IVUS catheter placed into mid LAD Pullback revealed moderate, mildly calcified stenosis at the ostium (measured at 54%, MLA 4.7 mm), no other significant LAD disease. BMW wire removed from LAD and directed into distal circumflex IVUS pullback revealed well apposed, well-expanded mid circumflex stent with minimal ostial circumflex disease Arterial Closure: TR band Summary: 1. Moderate nonobstructive ostial LAD disease (50-55% by IVUS). 2. Widely patent mid circumflex, OM 3 stents 3. Mildly elevated left-sided filling pressures Recommendations: No need for additional revascularization at this time Continue dual-antiplatelet therapy with aspirin, ticagrelor for at least 1 year. Uptitrate beta-leyla/JENNIFER as BP allows High-dose statin Consult cardiac Rehab Hemodynamics Rest Ao:: 98/68/82 Final Ao: 106/70/86 LV: 103/18 Recommendations Recommendations: Medical Therapy and/or Counseling Specimens Specimens: None Radiation Exposure (mGy) 593 Contrast (mls) 20 Fluids (cc crystalloids) Fluids (cc crystalloids): 20 Drains Drains: None Anesthesia Moderate Procedural Complication(s) None Disposition ICU I attest to the content of the Intraoperative Record and any orders documented therein. Any exceptions are noted below. [facility] Card Cath Procedure Codes Cardiac Catheterization Procedure 1: Cardiovascular Cath Procedures: 54716 Left Heart Cath (+/-LV) Therapeutic Services & Ancillary Proc Procedure 1: Cardiovascular Tx and Anc Procedures: 30447 IV Ultrasound (Coronary or Graft) Procedure 2: Cardiovascular Tx and Anc Procedures: 20527 IV Ultrasound Ea addl vessel Moderate Sedation Procedure 1: Sedation/Anesthesia: 02604 Mod Sedation by the same physician;Init15 Min Child Age 5 & Up PG Care Time/CCT Total # of Minutes Spent Total Time Spent with Patient: Total time spent is greater than 50% in coordination of care (as documented) at patient's floor/unit and/or counseling patient:
[2020-04-25] MEDS ORDERED: METOPROLOL TARTRATE 25 MG TAB PO ONE (12:19)
--- NOTE | 2020-04-25 12:19 | Cardiology Progress Note ---
Date of Service April 25, 2020 Assessment & Plan (1) STEMI (ST elevation myocardial infarction): --Post primary PCI with SALLY to mid circumflex occlusion and additional stent to ostial OM 2 2. Moderate non-culprit ostial LAD disease 3. Severe ischemic cardiomyopathy 4. Dyslipidemia Due to persistent chest pain/vomiting, more pronounced anterolateral ST depressions on ECG and previously noted at least moderate ostial LAD stenosis patient was brought back to [facility] for further evaluation. Intravascular ultrasound revealed nonobstructive moderate disease at the ostium of his LAD. Prior stents were widely patent. LVEDP borderline but improved from last night. Continue DAPT with aspirin, ticagrelor Start metoprolol 12.5 twice daily now Add lisinopril and hopefully spironolactone as BP allows Further discussions regarding possible LifeVest. If stable later this afternoon okay with transfer to telemetry Admission and Anticipated Discharge Date Admission Date: April 25, 2020 Subjective ECG This morning endorsed persistent left-sided chest pain with episodes of vomiting. ECG this morning showed more pronounced anterolateral ST depressions. Telemetry reviewedno arrhythmia. Sinus tachycardia with heart rates in the 100s Echo reviewedsevere LV dysfunction, EF 25 to 30%, mild MR, normal CVP Review of Systems Review of Systems: All systems reviewed & are unremarkable except as noted in HPI & below Physical Exam Physical Exam: General: Comfortable, color improved HEENT: Sclerae anicteric Lungs: Clear to auscultation bilaterally, no rhonchi or wheezes Cardiac: Tachycardic, regular Abdomen: Soft, nontender Extremities: Warm, well perfused, no edema. Right radial artery access site with no ecchymosis, hematoma. Distal pulse and sensation intact. Neuro: Nonfocal Psych: Alert orient x3, normal affect and mood Results & Data ([facility]) Vital Signs (Past 12 Hours) Vital Signs Temp Pulse Pulse Pulse Resp BP BP 04/25/20 11:55 103 H 18 98/78 L 04/25/20 10:32 104 H 29 H 04/25/20 10:31 100 H 24 96/65 L 04/25/20 10:00 98 H 26 H 04/25/20 09:30 04/25/20 09:24 105 H 20 04/25/20 09:23 88 24 101/71 04/25/20 08:00 99.1 F 95 H 24 04/25/20 07:48 88 24 118/80 04/25/20 07:23 89 24 106/71 04/25/20 06:07 90 40 H 99/64 L 04/25/20 05:58 89 26 H 86/55 L 04/25/20 05:52 94 H 28 H 82/50 L 04/25/20 05:49 95 H 28 H 60/44 L 04/25/20 05:41 95 H 19 103/69 04/25/20 05:23 91 H 20 92/70 L 04/25/20 04:13 98.1 F 93 H 22 101/65 04/25/20 03:58 94 H 22 96/64 L 04/25/20 03:43 94 H 24 100/70 04/25/20 03:40 93 H 20 100/70 04/25/20 03:10 99 H 22 98/67 L 04/25/20 02:40 103 H 17 116/84 04/25/20 02:30 100 H 18 106/63 04/25/20 02:15 108 H 22 92/69 L 04/25/20 02:00 107 H 18 126/78 04/25/20 01:49 98.2 F 109 H 20 04/25/20 01:45 125 H 20 113/84 BP Pulse Ox 04/25/20 11:55 93 04/25/20 10:32 94 04/25/20 10:31 95 04/25/20 10:00 90 04/25/20 09:30 95 04/25/20 09:24 96 04/25/20 09:23 95 04/25/20 08:00 97 04/25/20 07:48 96 04/25/20 07:23 96 04/25/20 06:07 95 04/25/20 05:58 93 04/25/20 05:52 95 04/25/20 05:49 95 04/25/20 05:41 96 04/25/20 05:23 97 04/25/20 04:13 94 04/25/20 03:58 96 04/25/20 03:43 92 04/25/20 03:40 94 04/25/20 03:10 93 04/25/20 02:40 96 04/25/20 02:30 95 04/25/20 02:15 93 04/25/20 02:00 93 04/25/20 01:49 113/84 94 04/25/20 01:45 96 PG Care Time/CCT Total # of Minutes Spent Total Time Spent with Patient: Total time spent is greater than 50% in coordi nation of care (as documented) at patient's floor/unit and/or counseling patient: Coding Level of Care Code 18633 Subseq Hosp Care Lvl 3 Diagnoses STEMI (ST elevation myocardial infarction) I21.3
[2020-04-25] MEDS: TICAGRELOR 90 MG TAB PO SCH ×2 (12:22→20:59)
[2020-04-25] MEDS: ACETAMINOPHEN 325 MG TAB PO PRN ×2 (13:01→19:41)
[2020-04-25] MEDS: MIRTAZAPINE SOLTAB 15 MG PO SCH (20:59)
--- NOTE | 2020-04-25 21:11 | Electrocardiogram Report ---
Test Reason : Blood Pressure : / mmHG Vent. Rate : 073 BPM Atrial Rate : 073 BPM P-R Int : 174 ms QRS Dur : 098 ms QT Int : 380 ms P-R-T Axes : 059 025 069 degrees QTc Int : 418 ms Normal sinus rhythm Possible Left atrial enlargement Nonspecific ST abnormality Abnormal ECG No previous ECGs available Confirmed by Mamadou Johnson ([id number]) on 04/25/2020 9:10:55 PM Referred By: REFERRED SELF Confirmed By:Mamadou Johnson
--- NOTE | 2020-04-25 21:21 | Electrocardiogram Report ---
Test Reason : Blood Pressure : / mmHG Vent. Rate : 067 BPM Atrial Rate : 067 BPM P-R Int : 160 ms QRS Dur : 108 ms QT Int : 402 ms P-R-T Axes : 068 068 095 degrees QTc Int : 424 ms Normal sinus rhythm with sinus arrhythmia ST elevation consider inferolateral injury or acute infarct ACUTE ID / STEMI Consider right ventricular involvement in acute inferior infarct Abnormal ECG When compared with ECG of 24-APR-2020 21:08, ST elevation now present in Inferolateral leads ST now depressed in Anterior leads Confirmed by Mamadou Johnson ([id number]) on 04/25/2020 9:21:35 PM Referred By: REFERRED SELF Confirmed By:Mamadou Johnson
--- NOTE | 2020-04-25 22:37 | Electrocardiogram Report ---
Test Reason : Blood Pressure : / mmHG Vent. Rate : 113 BPM Atrial Rate : 113 BPM P-R Int : 168 ms QRS Dur : 094 ms QT Int : 344 ms P-R-T Axes : 058 074 090 degrees QTc Int : 471 ms Sinus tachycardia Inferior infarct , possibly acute Marked ST abnormality, possible anterseptal subendocardial injury ACUTE [place] / STEMI Consider right ventricular involvement in acute inferior infarct Abnormal ECG When compared with ECG of 24-APR-2020 23:28, ST no longer elevated in Inferolateral leads Confirmed by Mamadou Johnson ([id number]) on 04/25/2020 10:37:29 PM Referred By: REFERRED SELF Confirmed By:Mamadou Johnson
--- NOTE | 2020-04-25 22:45 | Electrocardiogram Report ---
Test Reason : Blood Pressure : / mmHG Vent. Rate : 092 BPM Atrial Rate : 092 BPM P-R Int : 170 ms QRS Dur : 092 ms QT Int : 372 ms P-R-T Axes : 049 018 091 degrees QTc Int : 460 ms Normal sinus rhythm Inferior infarct , possibly acute ACUTE [place] / STEMI Consider right ventricular involvement in acute inferior infarct Abnormal ECG When compared with ECG of 24-APR-2020 23:28, Inferior infarct is now Present ST less elevated in Inferior leads ST less depressed in Anterior leads Confirmed by Mamadou Johnson ([id number]) on 04/25/2020 10:44:51 PM Referred By: REFERRED SELF Confirmed By:Mamadou Johnson
[2020-04-26] MEDS: ACETAMINOPHEN 325 MG TAB PO PRN ×2 (04:28→23:39)
[2020-04-26 04:42] LABS: Hematocrit (blood only) 38.5 % (42-52); Hemoglobin 13.4 g/dL (14.0-18.0); Mean Corpuscular Hemoglobin 31.5 pg (25-34); Mean Corpuscular Hgb Conc 34.8 g/dL (32-36); Mean Corpuscular Volume 90.4 fL (80-100); Mean Platelet Volume 11.3 fL (7.4-10.4); Platelet Count 231 K/uL (130-400); RDW Coefficient of Variation 12.1 % (11.5-14.5); Red Blood Count 4.26 M/uL (4.7-6.1); White Blood Count 12.94 K/uL (4.8-10.8)
[2020-04-26 05:06] LABS: BUN Creatinine Ratio 14.8 (10-20); Calcium 8.4 mg/dl (8.5-10.1); Creatinine Clr Calc Pharmacy 87.6 ml/min; Est GFR (African American) 114.2; Est GFR (Non-African American) 98.5; Potassium 3.9 mmol/L (3.5-5.1)
[2020-04-26] MEDS ORDERED: POTASSIUM CHLORIDE 20 MEQ TABCR PO STA (05:39)
--- NOTE | 2020-04-26 06:40 | Electrocardiogram Report ---
Test Reason : Blood Pressure : / mmHG Vent. Rate : 094 BPM Atrial Rate : 094 BPM P-R Int : 170 ms QRS Dur : 098 ms QT Int : 372 ms P-R-T Axes : 060 036 090 degrees QTc Int : 465 ms Normal sinus rhythm Inferior infarct (cited on or before 25-APR-2020) ACUTE [place] / STEMI Consider right ventricular involvement in acute inferior infarct Abnormal ECG When compared with ECG of 25-APR-2020 05:37, Serial changes of Inferior infarct Present Confirmed by Mamadou Johnson ([id number]) on 04/26/2020 6:40:41 AM Referred By: REFERRED SELF Confirmed By:Mamadou Johnson
[2020-04-26 07:29] LABS: Magnesium 2.2 mg/dl (1.8-2.4); Troponin I 59.2 ng/ml (0-0.045)
[2020-04-26] MEDS: LACTOBACILLUS ACIDOPHILUS (FLORANEX) TAB PO SCH (08:31)
[2020-04-26] MEDS: PANTOprazole 40 MG TAB PO SCH (08:31)
[2020-04-26] MEDS: ASPIRIN 81 MG ECTAB PO SCH (08:32)
[2020-04-26] MEDS: ATORVASTATIN 40 MG TAB PO SCH (08:32)
[2020-04-26] MEDS: TICAGRELOR 90 MG TAB PO SCH ×2 (08:32→20:43)
--- NOTE | 2020-04-26 08:36 | Critical Care Progress Note ---
Date of Service April 26, 2020 Assessment & Plan (1) STEMI (ST elevation myocardial infarction): Impression: 49-year-old male presents to the ICU following STEMI and status post PCI with SALLY with 1 stent to the mid circumflex and stent x1 to the ostial OM 2; return to cardiac Watch Dial [facility] yesterday for reevaluation of continued chest pain, this did demonstrate moderate nonobstructive ostial LAD disease (50 to 55%), widely patent mid LAD and OM stents. Stable for downgrade from ICU level of care following continued improvement in overall status. Neuro: - [facility] ICU: Negative Cardiac: -STEMI: patient with inferolateral STEMI with 100% occlusion of the mid dominant circumflex, moderate non-culprit CAD 50% ostial LAD stenosis -Noted to have elevated intracardiac filling pressures -Status post PCI to mid circumflex with SALLY and PCI of ostial OM 2 with SALLY -Forms peaked at 121, subsequent downtrend this a.m. -Echo from EF 30-35% severe inferior wall hypokinesis, severe septal hypokinesis, normal right ventricular systolic function, normal atrial size -Continue BB, ASA, Brilinta, statin -Continue to monitor on telemetry Respiratory: -Hypoxia/pulmonary edema: Resolved no longer having oxygen requirement -No prior history of pulmonary disease, patient does not smoke -Given 20 IV Lasix yesterday -Continuous monitoring on pulse ox GI: -Heart healthy diet -Tolerating oral intake RENAL/LYTES: -Creatinine within normal limits -Monitor electrolytes and replete as indicated : -Strict I's and O's ENDO: -No history of diabetes or thyroid disease -A1c 5.3 -ICU hyperglycemic protocol HEME: -H&H stable, monitor ID: -No indication for infectious process at this time LINES/IV ACCESS: -Peripheral IVs DVT PROPHYLAXIS: -SCDs (2) Pulmonary edema cardiac cause: (3) Chest pain: (4) Coronary artery disease: Admission and Anticipated Discharge Date Admission Date: April 25, 2020 Supervising Physician Co-Signing Physician Notes Dr. Sharma was resident physician during care of patient. I separately evaluated patient for luis portions of the history and the exam. I was present during the critical portion of medical decision making, and I discussed the case with the resident. I generally agree with the findings and plan. Patient's symptoms have improved and he is stable for downgrade to telemetry. Case was discussed on multidisciplinary rounds as well with invasive cardiology. Subjective Patient feels well this morning, has overnight had no episodes of chest pain, shortness of breath, nausea, vomiting, radiation down his arm. Continues to tolerate oral intake. Review of Systems Review of Systems: All systems reviewed & are unremarkable except as noted in Subjective Physical Exam Constitutional: WD/WN, vitals as above Eyes: PERRL, conjunctivae normal, anicteric sclerae Neck: trachea midline, no thyromegaly Respiratory: normal respiratory effort, lungs clear to auscultation Cardiovascular: Rate/Rhythm: regular rate and regular rhythm Heart Sounds: no gallop, no murmur and no cardiac rub Vessels: normal peripheral pulses; no JVD Extremities: no edema Gastrointestinal (Abdomen): normal bowel sounds, soft, nontender, no hepatosplenomegaly Skin: no rashes, warm and dry Neurologic: PERRL, EOMI, accommodation nl, no face palsy, no dysarthria Psychiatric: Orientation: alert and oriented x 3 Lymphatic: no cervical lymphadenopathy Results & Data Results & Data ([facility]) Vital Signs (Past 12 Hours) Vital Signs Temp Pulse Resp BP Pulse Ox 04/26/20 05:54 92 H 20 103/68 94 04/26/20 04:54 37.4 C 98 H 25 H 102/70 93 04/26/20 03:55 93 H 24 87/52 L 95 04/26/20 02:54 93 H 22 92/64 L 94 04/26/20 01:54 92 H 24 102/72 94 04/26/20 00:54 87 19 96/68 L 96 04/25/20 23:54 94 H 21 100/69 97 04/25/20 23:10 86 04/25/20 23:00 36.9 C 92 H 20 94 04/25/20 22:54 93 H 24 100/72 94 04/25/20 22:00 90 19 95 04/25/20 21:54 92 H 20 98/67 L 95 04/25/20 21:00 94 H 23 93 04/25/20 20:53 95 H 21 93/60 L 94 04/25/20 20:52 38.1 C H 96 H 22 93/60 L 94 Resident Activity Tracking Resident Involvement: Resident Care Provided Care Provided: Adult Hospital Medicine (Critical Care)
[2020-04-26] MEDS: METOPROLOL TARTRATE 25 MG TAB PO SCH ×2 (08:54→20:43)
--- NOTE | 2020-04-26 09:45 | Billing Data ---
Date of Service April 26, 2020 Coding Level of Care Code 92677 Subseq Hosp Care Lvl 3
--- NOTE | 2020-04-26 10:51 | Cardiology Progress Note ---
Date of Service April 26, 2020 Assessment & Plan (1) STEMI (ST elevation myocardial infarction): --Post primary PCI with SALLY to mid circumflex occlusion and additional stent to ostial OM 2 2. Moderate non-culprit ostial LAD disease 3. Severe ischemic cardiomyopathy 4. Dyslipidemia Chest pain is resolved. Troponin peaked. No access site complications. Continue DAPT with aspirin, ticagrelor Increase metoprolol to 25 mg twice dailyhome on Toprol-XL 50 mg daily Start low-dose lisinopril 2.5 mg today Discussed LifeVest today. Plan for patient to go home with LifeVest and follow-up echocardiogram in 1 month Okay with transfer to telemetry today and likely home tomorrow. Admission and Anticipated Discharge Date Admission Date: April 25, 2020 Subjective Feeling well today. Chest pain is resolved. Denies shortness of breath. Appetite improved. Telemetry reviewedno arrhythmia. Sinus tachycardia this morning to 100s Review of Systems Review of Systems: All systems reviewed & are unremarkable except as noted in HPI & below Physical Exam Physical Exam: General: Comfortable, color improved HEENT: Sclerae anicteric Lungs: Clear to auscultation bilaterally, no rhonchi or wheezes Cardiac: Tachycardic, regular Abdomen: Soft, nontender Extremities: Warm, well perfused, no edema. Right radial artery access site with no ecchymosis, hematoma. Distal pulse and sensation intact. Neuro: Nonfocal Psych: Alert orient x3, normal affect and mood Results & Data ([facility]) Vital Signs (Past 12 Hours) Vital Signs Temp Pulse Resp BP Pulse Ox 04/26/20 08:00 99 H 04/26/20 05:54 92 H 20 103/68 94 04/26/20 04:54 99.3 F 98 H 25 H 102/70 93 04/26/20 03:55 93 H 24 87/52 L 95 04/26/20 02:54 93 H 22 92/64 L 94 04/26/20 01:54 92 H 24 102/72 94 04/26/20 00:54 87 19 96/68 L 96 04/25/20 23:54 94 H 21 100/69 97 04/25/20 23:10 86 04/25/20 23:00 98.4 F 92 H 20 94 04/25/20 22:54 93 H 24 100/72 94 PG Care Time/CCT Total # of Minutes Spent Total Time Spent with Patient: Total time spent is greater than 50% in coordination of care (as documented) at patient's floor/unit and/or counseling patient: Coding Level of Care Code 16942 Subseq Hosp Care Lvl 3 Diagnoses STEMI (ST elevation myocardial infarction) I21.3
[2020-04-26] MEDS ORDERED: METOPROLOL TARTRATE 25 MG TAB PO ONE (10:52)
--- NOTE | 2020-04-26 14:12 | Hospitalist Progress Note ---
Date of Service April 26, 2020 Assessment & Plan (1) STEMI (ST elevation myocardial infarction): ST elevation myocardial infarction Ischemic Cardiomyopathy CXR:No acute process. ECHO: Severe inferior wall hypokinesis. Severe septal hypokinesis. Ejection fraction 30 to 35%. S/P PCI to mid circumflex, ostial OM 2 with drug-eluting stents Continue aspirin, Brilinta, statin, metoprolol Appreciate cardiology/critical care input Metoprolol increased to 25 mg twice daily Started on lisinopril 2.5 mg daily Needs follow-up with cardiology upon discharge Leukocytosis Likely reactive secondary to above Afebrile Monitor Hypertensive on presentation Currently BP relatively low Continue current medication Monitor Hyperlipidemia Continue statin H/O disseminated Lyme disease Completed treatment Anxiety/mood disorder On Mirtazapine GERD Continue PPI DVT PX Was on IV heparin SCDs Code Status Full code Disposition Expect to discharge home when medically stable Admission and Anticipated Discharge Date Admission Date: April 25, 2020 Subjective Patient is seen and examined at bedside States feeling well today Chest pain resolved Denies shortness of breath, dizziness, nausea, abdominal pain this morning Was nauseous overnight but no vomiting Offers no other complaints Review of Systems Review of Systems: All systems reviewed & are unremarkable except as noted in HPI & below Physical Exam Physical Exam: Physical Exam: Vitals signs as noted above General Appearance:Moderately built and nourished, no apparent distress Head: normocephalic, Atraumatic Eyes: normal inspection, EOMI Neck: supple, Trachea midline Respiratory/Chest: Normal breath sounds, CTA Cardiovascular: S1, S2, No murmur, +Tachycardia Abdomen/GI:Soft, Non tender, Bowel sounds present Extremities/Musculoskelatal:normal inspection, no edema Neurologic/Psych:AAOX3, grossly no focal neurological deficits Skin: normal color, warm Results & Data Results & Data ([facility]) Vital Signs (Past 12 Hours) Vital Signs Temp Pulse Resp BP Pulse Ox 04/26/20 08:00 99 H 04/26/20 05:54 92 H 20 103/68 94 04/26/20 04:54 37.4 C 98 H 25 H 102/70 93 04/26/20 03:55 93 H 24 87/52 L 95 04/26/20 02:54 93 H 22 92/64 L 94 Laboratory Results Short CBC 04/26/20 Range/Units 04:19 WBC 12.94 H (4.8-10.8) K/uL Hgb 13.4 L (14.0-18.0) g/dL Hct 38.5 L (42-52) % Plt Count 231 (130-400) K/uL BMP 04/26/20 04:19 Sodium 140 Potassium 3.9 Chloride 107 Carbon Dioxide 29 BUN 13 Creatinine 0.90 Glucose 118 H Calcium 8.4 L Cardiac Enzymes 04/25/20 04/26/20 Range/Units 13:49 04:19 Troponin I 121.000 H* 59.200 H* (0-0.045) ng/ml
[2020-04-26] MEDS ORDERED: SODIUM CHLORIDE 0.65% NA SOLN 45 ML (OCEAN) PRN (19:35)
[2020-04-26] MEDS: MIRTAZAPINE SOLTAB 15 MG PO SCH (20:43)
--- NOTE | 2020-04-27 05:59 | Electrocardiogram Report ---
Test Reason : Blood Pressure : / mmHG Vent. Rate : 092 BPM Atrial Rate : 092 BPM P-R Int : 158 ms QRS Dur : 092 ms QT Int : 374 ms P-R-T Axes : 054 027 090 degrees QTc Int : 462 ms Normal sinus rhythm Inferior-posterior infarct (cited on or before 25-APR-2020) Marked ST abnormality, possible lateral subendocardial injury ST elevation, consider inferior injury pattern Abnormal ECG When compared with ECG of 25-APR-2020 06:37, ST more depressed in Anterolateral leads Confirmed by Mamadou Johnson ([id number]) on 04/27/2020 5:59:11 AM Referred By: REFERRED SELF Confirmed By:Mamadou Johnson
[2020-04-27 06:48] LABS: Hematocrit (blood only) 40.8 % (42-52); Hemoglobin 13.6 g/dL (14.0-18.0); Mean Corpuscular Hemoglobin 30.8 pg (25-34); Mean Corpuscular Hgb Conc 33.3 g/dL (32-36); Mean Corpuscular Volume 92.5 fL (80-100); Mean Platelet Volume 11.2 fL (7.4-10.4); Platelet Count 252 K/uL (130-400); RDW Coefficient of Variation 12.2 % (11.5-14.5); RDW Standard Deviation 41.6 fL (36.4-46.3); Red Blood Count 4.41 M/uL (4.7-6.1); White Blood Count 11.12 K/uL (4.8-10.8)
[2020-04-27 07:18] LABS: BUN Creatinine Ratio 18.2 (10-20); Calcium 8.7 mg/dl (8.5-10.1); Creatinine Clr Calc Pharmacy 75.8 ml/min; Est GFR (African American) 95.9; Est GFR (Non-African American) 82.7; Magnesium 2.3 mg/dl (1.8-2.4); Potassium 3.7 mmol/L (3.5-5.1)
[2020-04-27] MEDS: TICAGRELOR 90 MG TAB PO SCH (08:10)
[2020-04-27] MEDS: METOPROLOL TARTRATE 25 MG TAB PO SCH (08:10)
[2020-04-27] MEDS: LACTOBACILLUS ACIDOPHILUS (FLORANEX) TAB PO SCH (08:11)
[2020-04-27] MEDS: ASPIRIN 81 MG ECTAB PO SCH (08:11)
[2020-04-27] MEDS: PANTOprazole 40 MG TAB PO SCH (08:11)
[2020-04-27] MEDS: ATORVASTATIN 40 MG TAB PO SCH (08:11)
--- NOTE | 2020-04-27 11:16 | Cardiology Progress Note ---
Date of Service April 27, 2020 Assessment & Plan (1) STEMI (ST elevation myocardial infarction): --Post primary PCI with SALLY to mid circumflex occlusion and additional stent to ostial OM 2 2. Moderate non-culprit ostial LAD disease 3. Severe ischemic cardiomyopathy 4. Dyslipidemia Chest pain free. Electrically stable. No access site complications. Rare dyspnea - may be related to Ticagrelor Brief nosebleeds From a cardiac standpoint OK with discharge today after LifeVest in place. Home on: -- Aspirin, ticagrelor Toprol-XL 50 mg daily -Lisinopril 2.5 mg -- Atorvastatin 80mg daily Follow-up with me in 2 weeks. Discuss cardiac rehab at that time. -- Repeat echo in 1 month Admission and Anticipated Discharge Date Admission Date: April 25, 2020 Subjective Feeling well. No recurrent chest pain. Brief episodes of shortness of breath at rest lasting seconds. Occasional nose bleeds. Not new for patient. Telemetry -- no events Review of Systems Review of Systems: All systems reviewed & are unremarkable except as noted in HPI & below Physical Exam Physical Exam: General: Comfortable, no acute distress Eyes: Sclerae anicteric, extraocular movements intact Lungs: Clear to auscultation bilaterally Cardiac: Regular rate and rhythm, no murmurs Abdomen: Soft, nontender Psych: Alert orient x3, normal affect and mood Extremities/Vascular: -- 2+ radial bilaterally -- No edema Results & Data ([facility]) Vital Signs (Past 12 Hours) Vital Signs Temp Pulse Pulse Pulse Resp BP Pulse Ox 04/27/20 07:20 98.8 F 78 18 92/62 L 95 04/27/20 03:11 99.0 F 84 16 99/67 L 96 04/27/20 01:25 99.3 F 04/27/20 00:00 91 H 04/26/20 23:32 100.4 F H 95 H 18 103/65 95 PG Care Time/CCT Total # of Minutes Spent Total Time Spent with Patient: Total time spent is greater than 50% in coordination of care (as documented) at patient's floor/unit and/or counseling patient: Coding Level of Care Code 58301 Subseq Hosp Care Lvl 3 Diagnoses STEMI (ST elevation myocardial infarction) I21.3 Involved coronary artery: unspecified coronary artery (1) STEMI (ST elevation myocardial infarction) Involved coronary artery: unspecified coronary artery Qualified Code(s): I21.3 - ST elevation (STEMI) myocardial infarction of unspecified site
--- NOTE | 2020-04-27 14:06 | Hospitalist Progress Note ---
Date of Service April 27, 2020 Assessment & Plan (1) STEMI (ST elevation myocardial infarction): Presented with inferior STEMI. Initially treated with aspirin, IV heparin, metoprolol, nitrates. Cardiology consulted. Emergent cath 04/24 demonstrated 100% occlusion of mid circumflex, 80% occlusion ostial OM2, 50% occlusion mid LAD. PCi circumflex lesion with drug eluting stent performed with good results. Transient hypotension in prosthetics lab technician treated with norepinephrine. Developed recurrent chest pain 04/25 and taken back to prosthetics lab technician. PCI circumflex was patent. IVUS of mid LAD lesion showed 50-55 stenosis. No need for additional PCI. Peak troponin 121. Echo 04/25/20 showed severe hypokinesis of inferior wall and septum, overall LVEF 30-35%. LDL-c = 182. Treated with DAPT (aspirin + ticagrelor), metoprolol, lisinopril, statin. No further chest pain. Systolic BP's in 90's and low 100's- tolerated. Discharge cardiac meds: aspirin 81 mg daily ticagrelor 90 mg BID metoprolol succinate 50 mg daily lisinopril 2.5 mg daily atorvastatin 80 mg daily (2) Coronary artery disease: As noted above. (3) Ischemic cardiomyopathy: Echo 04/25/20 showed severe hypokinesis of inferior wall and septum, overall LVEF 30-35%. Started on metoprolol tartrate and transitioned to metoprolol succinate 50 mg da keshawn at discharge. Started on lisinopril 2.5 mg daily. Blood pressures relatively low, but tolerated. No clinical CHF. At risk for ventricular arrhythmias. LifeVest recommended and delivered to patient in his room. (4) Hyperlipidemia: LDL-c = 182. Started on atorvastatin 80 mg daily. (5) Chronic reflux esophagitis: Continue PPI. (6) DVT prophylaxis: Initially received IV heparin. SCD's ordered. Ambulating. (7) Discharge planning issues: Discharge to home. Family Medicine follow-up with Dr. Bass. Cardiology follow-up with Dr. Craig. Admission and Anticipated Discharge Date Admission Date: April 25, 2020 Subjective Recheck for STEMI. Patient seen in their room around 1350. Doing well. Ambulating. No chest pain, SOB. BP's relatively low, but no lightheadedness or syncope. No arrhythmias on cardiac monitoring. LifeVest recommended by Cardiology and delivered. Physical Exam Constitutional: no acute distress Respiratory: no respiratory distress Auscultation: lungs clear to auscultation bilaterally Cardiovascular: Rate/Rhythm: regular rate and regular rhythm Heart Sounds: no gallop, no murmur and no cardiac rub Vessels: no JVD Extremities: no calf tenderness and no edema Gastrointestinal (Abdomen): normal bowel sounds, soft, nontender, no hepatosplenomegaly Musculoskeletal: Extremities: no cyanosis Skin: no rashes, warm and dry Psychiatric: Orientation: alert and oriented x 3 Results & Data Results & Data ([facility]) Vital Signs (Past 12 Hours) Vital Signs Temp Pulse Resp BP Pulse Ox 04/27/20 07:20 37.1 C 78 18 92/62 L 95 04/27/20 03:11 37.2 C 84 16 99/67 L 96 Laboratory Results 04/27/20 06:25 04/27/20 06:25 ECG Additional Comments: EKG performed at 1324 reviewed and demonstrated NSR at 80 / min, evolving inferior infarct. (1) STEMI (ST elevation myocardial infarction) Involved coronary artery: unspecified coronary artery Qualified Code(s): I21.3 - ST elevation (STEMI) myocardial infarction of unspecified site
--- NOTE | 2020-04-28 09:10 | Discharge Summary ---
Date of Service Date of Admission: 04/25/20 Date of Discharge: 04/27/20 Admission HPI Per Admitting Provider History obtained from patient, family, and records. Medical history significant for hyperlipidemia, urticaria, Lyme disease status post treatment, anxiety/mood disorder, IBS as per records, past tobacco abuse. 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 No cough symptoms. No prior episodes in the past. Some neck discomfort which patient does not reckon to be connected to chest pain. Intermittent symptoms until he got home. Discomfort more intense at home. At the ER, patient received aspirin and Nitropaste leading to resolution of chest discomfort. Initial EKG showed ST depression on the lateral leads. Initial troponin was 0.066. Patient got back from the bathroom when he experienced recurrent chest discomfort. Incomplete relief with morphine administration at the ER. SBP later noted to be 80s. Nitropaste removed back to the ER. ST elevation noted on the inferior and lateral leads on subsequent EKG. Heart alert called by ER provider. Principal Diagnosis ST elevation inferolateral myocardial infarction ischemic cardiomyopathy dyslipidemia Discharge Data Allergies Allergy/AdvReac Type Severity Reaction Status Date / Time pollen extracts Allergy Intermediate ITCHY Verified 04/24/20 22:07 EYES, RUNNY NOSE, CONGESTION Penicillins Allergy Unknown HAPPENED Verified 04/24/20 22:07 A CHILD Consultations 04/24/20 22:23 ED Decision to Admit Stat 04/25/20 01:45 Consult Cardiology Routine Consult Case Management - Discharge Planning Routine Consult Canning Machine Operator Routine 04/25/20 01:57 Consult Cardiac Rehabilitation Routine Procedures Performed Operation Date: 04/25/20 11:00 Actual Procedures p IVUS Coronary Single Vessel - Nestor Craig MD s Cineradiography w/Routine Exam - Nestor Craig MD s Cath, Left with Cors and Vent - Nestor Craig MD Operation Date: 04/25/20 23:59 Actual Procedures s Cath, Left with Cors and Vent - Nestor Craig MD s Cineradiography w/Routine Exam - Nestor Craig MD p Aspiration/PCI w/SALLY for Stemi - Nestor Craig MD Ordered Studies 04/25/20 00:00 CL Cath Imgs for PACS use only Stat 04/25/20 10:47 CL Cath Imgs for PACS use only Stat 04/25/20 12:06 CL IVUS Coronary Single Vessel Stat Hospital Course (1) STEMI (ST elevation myocardial infarction): Presented with inferolateral STEMI. Initially treated with aspirin, IV heparin, metoprolol, nitrates. Cardiology consulted. Emergent cath laboratory veterinarian 04/25 demonstrated 100% occlusion of mid circumflex, 80% occlusion ostial OM2, 50% occlusion mid LAD. PCI's circumflex and OM2 lesions with drug eluting stents performed with good results. Transient hypotension in laboratory administrative director treated with norepinephrine. Developed recurrent chest pain later 04/25 and taken back to laboratory administrative director. PCI's circumflex and OM2 were patent. IVUS of mid LAD lesion showed 50-55 stenosis. No need for additional intervention. Peak troponin 121. Echo 04/25/20 showed severe hypokinesis of inferior wall and septum, overall LVEF 30-35%. LDL-c = 182. Treated with DAPT (aspirin + ticagrelor), metoprolol, lisinopril, statin. No further chest pain. Systolic BP's in 90's and low 100's- tolerated. Discharge cardiac meds: aspirin 81 mg daily ticagrelor 90 mg BID metoprolol succinate 50 mg daily lisinopril 2.5 mg daily atorvastatin 80 mg daily (2) Coronary artery disease: As noted above. (3) Ischemic cardiomyopathy: Echo 04/25/20 showed severe hypokinesis of inferior wall and septum, overall LVEF 30-35%. Started on metoprolol tartrate and transitioned to metoprolol succinate 50 mg daily at discharge. Started on lisinopril 2.5 mg daily. Blood pressures relatively low, but tolerated. No clinical CHF. At risk for ventricular arrhythmias. LifeVest recommended and delivered to patient in his room. (4) Hyperlipidemia: LDL-c = 182. Started on atorvastatin 80 mg daily. (5) Chronic reflux esophagitis: Continue PPI. (6) DVT prophylaxis: Initially received IV heparin. SCD's ordered. Ambulating. (7) Discharge planning issues: Discharged to home. Family Medicine follow-up with Dr. Bass. Cardiology follow-up with Dr. Craig. Total Time Total Time Spent Total Time Spent (In Minutes): 40 Discharge Plan Discharge Items Patient Disposition: Home - Self-Care Reason For Visit: chest pain Discharge Diagnosis: myocardial infarction (heart attack) Condition on Discharge: Good Activity: As commented below Activity Comment: light activity Non-emergency contact: Primary Care Provider, Hospitalist and Artificial Foliage Arranger Call non-emergency contact if: you have any medication questions and your symptoms worsen Follow-up/Referrals: Nestor Craig MD [Physician] - (05/10/20 14:30) Van Bass MD [Primary Care Provider] - 05/07/20 11:20 am (05/07/2020 11:20 AM Provider Van Bass MD Department Internal Medicine [facility] ) Diet: Heart Healthy Add Attending Provider Instructions: MEDICATION CHANGES: Aspirin and ticagrelor (Brilinta) are blood thinners to keep arteries and stents open. They prevent heart attacks. Do not stop taking them unless instructed to do so by Cardiology. Metoprolol and lisinopril help the heart recover from a heart attack. Metoprolol can help prevent additional heart attacks. Atorvastatin (Lipitor) lowers cholesterol and helps prevent heart attacks. SUMMARY OF TEST RESULTS: Blood tests and cardiograms indicated that you were having a heart attack. Heart catheterization showed blockage in coronary arteries. OTHER INSTRUCTIONS: Seek medical attention if you have: * temperature above 101 * chest pain or trouble breathing * abdominal pain, nausea, vomiting * diarrhea, dark stools or bloody stools * any unanswered questions or concerns Call 911 if symptoms are severe. Please take good care of yourself. Call if you have any questions or problems. You can reach a [facility] hospitalist on duty at [facility] 24 hours a day by calling [phone]. My cell # is [phone]. Pending Studies at Discharge: No Stand-Alone Forms: My [facility], Work/School Release (Inpt), Smoking Cessation Medications and DC Order Prescriptions: New aspirin 81 mg Tablet,Delayed Release (Dr/Ec) 81 mg PO QAM Qty: 30 RF: 11 lisinopril 2.5 mg Tablet 2.5 mg PO QAM Qty: 30 RF: 5 Brilinta 90 mg Tablet 90 mg PO BID Qty: 60 RF: 5 atorvastatin 80 mg tablet 80 mg PO DAILY Qty: 30 RF: 5 metoprolol succinate 50 mg tablet extended release 24 hr 50 mg PO DAILY Qty: 30 RF: 5 Continued mirtazapine 45 mg tablet 45 mg PO DAILY Qty: 90 RF: 0 omeprazole 40 mg capsule,delayed release(DR/EC) 40 mg PO DAILY Qty: 90 RF: 0 epinephrine 0.3 mg/0.3 mL auto-injector 0.3 mg IM ONCE PRN (Reason: severe allergiic reaction) RF: 0 diclofenac sodium [Voltaren] 1 % Gel 0 g TOPICAL QID PRN (Reason: Pain) RF: 0 Probiotic 3 billion cell Capsule 0 mmu cells PO DAILY RF: 0 Discharge Orders: Discharge Order (Routine); Ordered 04/27/20 Ordered By: Giuliano Miranda/Other Patient Handouts: Your Risk Factors for Heart Disease, Symptoms of a Heart Attack, Cholesterol Lifestyle Changes Admission Data Admit Date/Time: 04/25/20 01:03 Attending Provider: Giuliano Napoles Admit Provider: Manny Barnhart Primary Care Provider: Van Bass Other Providers: Manny Barnhart ; Nestor Craig ; Chava Landry ; Bobby Parmar Other Interventions: Discharge Summary Assessment (RN) Last Done: 04/27/20 14:44
--- NOTE | 2020-04-29 04:46 | Electrocardiogram Report ---
Test Reason : Blood Pressure : / mmHG Vent. Rate : 083 BPM Atrial Rate : 083 BPM P-R Int : 154 ms QRS Dur : 094 ms QT Int : 406 ms P-R-T Axes : 069 019 -40 degrees QTc Int : 477 ms Normal sinus rhythm Low voltage QRS Inferior infarct (cited on or before 25-APR-2020) ST elevation, consider inferior injury pattern Abnormal ECG When compared with ECG of 25-APR-2020 08:02, Serial changes of evolving Inferior infarct Present Confirmed by Mamadou Johnson ([id number]) on 04/29/2020 4:45:54 AM Referred By: REFERRED SELF Confirmed By:Mamadou Johnson
--- NOTE | 2020-05-04 09:38 | Coding Query ---
CODING QUERY To promote full compliance with coding requirements relating to patient care, provider participation is requested in all cases of inpatient coder uncertainty. Please assist us with the question(s) below: Coding Question(s): The Critical Care Consultation on 04/25/20 and Progress Note on 04/26/20 document pulmonary edema and IV Lasix. Please specify below, in your clinical opinion regarding pulmonary edema. ( ) Acute Pulmonary Edema ( ) Chronic Pulmonary Edema ( X ) Pulmonary Edema - unspecified ( ) Other: Please Specify Physician's Response(s): Thank you Cece Roman Principal Diagnosis: "that condition established after study, to be chiefly responsible for occasioning the admission of the patient to the hospital for care." Co-Existing Principal Diagnosis: "when two or more diagnoses equally meet the criteria for principal diagnosis as determined by the circumstances of admission, diagnostic work up, and/or therapy provided, and the Alphabetic Index, Tabular List, or another coding guideline does not provide sequencing direction, any one of the diagnoses may be sequenced first." "When the physician has documented what appears to be a current diagnosis in the body of the record, but has not included the diagnosis in the final diagnostic statement, the physician should be asked whether the diagnosis should be added." (Source Coding [facility] 2 QTR90. p3-4) CAIT
== END 2020-04-27 15:10 | disposition home or self-care (01) | DRG 247 ==
LOC: ED 20:58 → 1E 23:11 → CC 23:11 → OBSVTOIN 04-25 01:03 → SUATTDRO 04-25 01:03 → 2S 04-26 13:54

== ENCOUNTER 2021-09-21 22:45 | Observation (INO) ==
[2021-09-21] MEDS ORDERED: ACETAMINOPHEN 1,000 MG/100 ML VIAL IV STA (22:57)
[2021-09-21] MEDS ORDERED: ONDANSETRON INJ 2 MG/ML 2 ML VIAL IV STA (22:57)
[2021-09-21] MEDS ORDERED: SODIUM CHLORIDE 0.9% 1000ML 1,000 ML IV SCH (23:00)
--- NOTE | 2021-09-21 23:12 | Emergency Department Note ---
History of Present Illness General Chief complaint: Kidney Stone Stated complaint: KIDNEY STONE, BLOOD INURINE, HE[place]OHUNG PAIN Time Seen by Provider: 09/21/21 22:52 History of Present Illness Maximum Pain Intensity: 10 This is a 51-year-old male presenting to the emergency department for evaluation of right flank pain. The patient has a history of kidney stones, and was diagnosed with a renal pelvis/proximal obstructing kidney stone 9 days ago. He has had pain for about 2 weeks with hematuria. The patient has followed with his [facility] urology team, and is scheduled for lithotripsy on 10/21/2021. The patient pain worsened tonight, and is now different than it was previously. His pain is much more severe and he rates this a 10/10. He is also having pain in the anterior aspect of his abdomen. He has not had vomiting. He does have a cardiac history, and is on Brilinta. He is not vaccinated against Covid. Home Medications Medication Instructions Recorded Confirmed Type omeprazole 40 mg capsule,delayed 40 mg PO DAILY #90 cap 03/17/19 09/21/21 Rx release epinephrine 0.3 mg/0.3 mL 0.3 mg IM DIRECTED PRN ea 06/14/19 09/21/21 History injection, auto-injector lactobacillus combination no.4 3 0 mmu cells PO DAILY 04/24/20 09/21/21 History billion cell capsule (Probiotic) coenzyme Q10 100 mg capsule 100 mg PO DAILY #30 cap 05/29/20 09/21/21 Rx aspirin 81 mg tablet,delayed 81 mg PO QAM #30 tab 09/20/20 09/21/21 Rx release duloxetine 30 mg capsule,delayed 30 mg PO HS 12/04/20 09/21/21 History release lisinopril 2.5 mg tablet 2.5 mg PO QAM #30 tab 03/11/21 09/21/21 Rx ticagrelor 90 mg tablet (Brilinta) 90 mg PO BID #60 tab 04/15/21 09/21/21 Rx omalizumab 150 mg subcutaneous 300 mg SUBCUT .COMPLEX #2 ea 08/21/21 09/21/21 Rx solution (Xolair) metoprolol succinate 100 mg 100 mg PO DAILY #90 tab 09/05/21 09/21/21 Rx tablet,extended release 24 hr rosuvastatin 40 mg tablet 40 mg PO DAILY #90 tab 09/16/21 09/21/21 Rx diclofenac sodium 1 % topical gel 4 g TOPICAL QID PRN 09/21/21 09/21/21 History Allergies Allergy/AdvReac Type Severity Reaction Status Date / Time pollen extracts Allergy Intermediate ITCHY Verified 09/21/21 23:26 EYES, RUNNY NOSE, CONGESTION Penicillins Allergy Unknown HAPPENED Verified 09/21/21 23:26 A CHILD Past Med/Surg History Medical History Atypical nevi Chronic idiopathic urticaria Chronic reflux esophagitis Depression Hyperlipidemia Ischemic cardiomyopathy Lyme disease Surgical History S/P laparoscopic cholecystectomy Status post cardiac catheterization 04/25/20 circ 100%, OM2 80%, LAD 50% ostial Status post coronary artery stent placement 04/25/20 - SALLY circ + OM2 Family History Other Family history non-contributory Social History Smoking Status: Never smoker Second Hand Exposure: No; Hx Alcohol Use: Yes Alcohol type: beer Hx Substance Use: No Preferred Language: French Communication Ability: Effective Stone Banker Required: No Beliefs That Will Affect Care: None marital status: Current Living Situation: Alone current occupational status: employed current occupation: Currently not working. Works for [employer]. [employer] Other Information That Helps Us Care for You: No Feels Safe at Home: Yes Safety Concerns: Feels Safe At This Time Seatbelt Use: always Assistive Devices: None Review of Systems A total of 10 systems reviewed and were otherwise negative Physical Exam Vital Signs Vital Signs - 24 hr 09/21/21 22:46 09/21/21 22:57 09/21/21 23:30 Temperature 36.4 C L 36.7 C Temperature Source Oral Oral Pulse Rate 72 Pulse Rate [Right Finger] 74 80 Pulse Rhythm [Right Finger] Regular Regular Pulse Strength [Right Finger] Normal Normal Respiratory Rate 18 22 20 Respiratory Effort / Characteristics Non-Labored Spontaneous Non-Labored Spontaneous Non-Labored Spontaneous Respiratory Depth Normal Normal Normal Respiratory Pattern Regular Regular Blood Pressure 164/122 H Blood Pressure [Right Arm] 146/78 H 131/75 Blood Pressure Mean 136 Blood Pressure Mean [Right Arm] 100 93 Blood Pressure Position Sitting Pulse Oximetry 100 98 100 Oxygen Delivery Method Room Air Room Air Room Air Oxygen Flow Rate Sepsis Recent Fever Within 48 Hours No Sepsis New/Unexplained Change in Mental Status No Sepsis Action Taken by Nursing No Action Required 09/21/21 23:36 09/21/21 23:37 09/22/21 02:00 Temperature Temperature Source Pulse Rate Pulse Rate [Right Finger] 84 Pulse Rhythm [Right Finger] Regular Pulse Strength [Right Finger] Normal Respiratory Rate 18 Respiratory Effort / Characteristics Non-Labored Spontaneous Respiratory Depth Normal Respiratory Pattern Regular Blood Pressure Blood Pressure [Right Arm] 123/69 Blood Pressure Mean Blood Pressure Mean [Right Arm] 87 Blood Pressure Position Pulse Oximetry 88 L 95 96 Oxygen Delivery Method Room Air Nasal Cannula Room Air Oxygen Flow Rate 2 Sepsis Recent Fever Within 48 Hours Sepsis New/Unexplained Change in Mental Status Sepsis Action Taken by Nursing VITALS: Vitals are noted on the nurse's note and reviewed by myself. Vital signs stable. GENERAL: Well-developed, well-nourished, white male, who is in no acute distress and resting comfortably. Patient is cooperative with the examination. HEAD: Normocephalic atraumatic. HEART: Regular rate and rhythm without murmurs gallops or rubs. LUNGS: Clear to auscultation bilaterally without wheezes, rales or rhonchi. No retractions or accessory muscle use. ABDOMEN: Positive normal bowel sounds x 4. Soft, nontender, without masses or organomegaly. No guarding or rebound tenderness. MUSCULOSKELETAL: No muscle atrophy, erythema, or edema noted. Full range of motion in all extremities. Course Administered Medications Lactated Ringer's (Lr) 1,000 mls @ 75 mls/hr IV .[id number] ONE Stop: 09/22/21 17:29 Last Admin: 09/22/21 05:17 Dose: 75 mls/hr Documented by: [id number] Discontinued Medications Sodium Chloride (Nss 1000ml) 1,000 mls @ 999 mls/hr IV .Q1H1M DELTA Stop: 09/22/21 00:00 Last Infusion: 09/22/21 01:10 Dose: 0 mls/hr Documented by: [id number] Admin: 09/21/21 23:21 Dose: 999 mls/hr Documented by: [id number] Acetaminophen (Ofirmev) 1,000 mg in 100 mls @ 400 mls/hr IV NOW STA Stop: 09/21/21 23:11 Last Infusion: 09/22/21 00:00 Dose: 0 mls/hr Documented by: [id number] Admin: 09/21/21 23:20 Dose: 400 mls/hr Documented by: [id number] Sodium Chloride (Nss 1000ml) 1,000 mls @ 999 mls/hr IV .Q1H1M DELTA Stop: 09/22/21 02:00 Last Infusion: 09/22/21 02:22 Dose: 0 mls/hr Documented by: [id number] Admin: 09/22/21 01:00 Dose: 999 mls/hr Documented by: [id number] Calcium Gluconate () 1,000 mg in 60 mls @ 240 mls/hr IV NOW STA Stop: 09/22/21 03:47 Last Infusion: 09/22/21 05:09 Dose: 0 mls/hr Documented by: [id number] Admin: 09/22/21 04:06 Dose: 240 mls/hr Documented by: [id number] Morphine Sulfate (Morphine Sulfate 4 Mg/Ml 1 Ml Carp\Vial) 4 mg IV Q30M PRN PRN Reason: Pain Stop: 10/05/21 22:56 Last Admin: 09/22/21 00:59 Dose: 4 mg Documented by: [id number] Admin: 09/21/21 23:20 Dose: 4 mg Documented by: [id number] Ondansetron HCl (Ondansetron Inj 2 Mg/Ml 2 Ml Vial) 4 mg IV NOW STA Stop: 09/21/21 22:58 Last Admin: 09/21/21 23:20 Dose: 4 mg Documented by: [id number] Tamsulosin HCl (Tamsulosin Hcl 0.4 Mg Cap) 0.4 mg PO NOW ONE Stop: 09/22/21 03:37 Last Admin: 09/22/21 04:06 Dose: 0.4 mg Documented by: [id number] Medical Decision Making Differential Diagnosis Differential diagnosis: Etiologies such as shingles, pyelonephritis/UTI, renal colic, appendicitis, diverticulitis, mesenteric ischemia, torsion, aortic pathology, infections, inflammatory bowel disease, bowel obstruction, PUD, biliary pathology, as well as others were entertained. Laboratory Data Result diagrams: 09/21/21 23:10 09/21/21 23:10 Lab Results 09/21/21 09/21/21 09/21/21 Range/Units 23:10 23:10 23:10 WBC 13.87 H (4.8-10.8) K/uL RBC 4.46 L (4.7-6.1) M/uL Hgb 14.1 (14.0-18.0) g/dL Hct 41.2 L (42-52) % MCV 92.4 (80-100) fL MCH 31.6 (25-34) pg MCHC 34.2 (32-36) g/dL RDW Std Deviation 41.3 (36.4-46.3) fL RDW Coeff of Jaci 12.2 (11.5-14.5) % Plt Count 249 (130-400) K/uL MPV 11.0 H (7.4-10.4) fL Immature Gran % (Auto) 0.1 % Neut % (Auto) 71.6 % Lymph % (Auto) 18.7 % [place] % (Auto) 8.5 % Eos % (Auto) 0.9 % Baso % (Auto) 0.2 % Neut # (Auto) 9.91 H (1.4-6.5) K/uL Lymph # (Auto) 2.60 (1.2-3.4) K/uL [place] # (Auto) 1.18 H (0.11-0.59) K/uL Eos # (Auto) 0.13 (0-0.5) K/uL Baso # (Auto) 0.03 (0-0.2) K/uL Immature Gran # (Auto) 0.02 (0.00-0.02) K/uL Sodium 137 (136-145) mmol/L Potassium 3.6 (3.5-5.1) mmol/L Chloride 103 (98-107) mmol/L Carbon Dioxide 25 (21-32) mmol/L Anion Gap 9 (3-11) BUN 18 (6-23) mg/dl Creatinine 1.09 (0.6-1.4) mg/dl Est Cr Clr Drug Dosing 70.7 ml/min Est GFR ( Amer) 89.3 ml/min Est GFR (Non-Af Amer) 77.1 ml/min BUN/Creatinine Ratio 16.5 (10-20) Glucose 113 H (70-99(Fasting)) mg/dl Calcium 8.4 L (8.5-10.1) mg/dl Magnesium 1.7 (1.7-2.4) mg/dl Total Bilirubin 0.6 (0.2-1.0) mg/dl AST 80 H (13-39) U/L ALT 56 H (7-52) U/L Alkaline Phosphatase 64 (34-104) U/L Total Protein 6.2 (6.0-8.3) gm/dl Albumin 4.0 (3.4-5.0) gm/dl Globulin 2.2 L (2.5-4.0) gm/dl Albumin/Globulin Ratio 1.8 (0.9-2) Lipase 26 (11-82) U/L Urine Color Urine Appearance (Clear) Urine pH (4.5-7.5) Ur Specific [place] (1.000-1.030) Urine Protein (Negative) Urine Glucose (UA) (Negative) Urine Ketones (Negative) Urine Blood (Negative) Urine Nitrite (Negative) Urine Bilirubin (Negative) Urine Urobilinogen (Negative) Ur Leukocyte Esterase (Negative) Urine WBC (Auto) (0-5) /hpf Urine RBC (Auto) (0-4) /hpf U Hyaline Cast (Auto) (0-5) /lpf U Epithel Cells (Auto) (0-5) /lpf Urine Bacteria (Auto) (Negative) SARS-CoV-2, RNA, NAAT (NEGATIVE) 09/22/21 09/22/21 Range/Units 01:03 01:30 WBC (4.8-10.8) K/uL RBC (4.7-6.1) M/uL Hgb (14.0-18.0) g/dL Hct (42-52) % MCV (80-100) fL MCH (25-34) pg MCHC (32-36) g/dL RDW Std Deviation (36.4-46.3) fL RDW Coeff of Jaci (11.5-14.5) % Plt Count (130-400) K/uL MPV (7.4-10.4) fL Immature Gran % (Auto) % Neut % (Auto) % Lymph % (Auto) % [place] % (Auto) % Eos % (Auto) % Baso % (Auto) % Neut # (Auto) (1.4-6.5) K/uL Lymph # (Auto) (1.2-3.4) K/uL [place] # (Auto) (0.11-0.59) K/uL Eos # (Auto) (0-0.5) K/uL Baso # (Auto) (0-0.2) K/uL Immature Gran # (Auto) (0.00-0.02) K/uL Sodium (136-145) mmol/L Potassium (3.5-5.1) mmol/L Chloride (98-107) mmol/L Carbon Dioxide (21-32) mmol/L Anion Gap (3-11) BUN (6-23) mg/dl Creatinine (0.6-1.4) mg/dl Est Cr Clr Drug Dosing ml/min Est GFR ( Amer) ml/min Est GFR (Non-Af Amer) ml/min BUN/Creatinine Ratio (10-20) Glucose (70-99(Fasting)) mg/dl Calcium (8.5-10.1) mg/dl Magnesium (1.7-2.4) mg/dl Total Bilirubin (0.2-1.0) mg/dl AST (13-39) U/L ALT (7-52) U/L Alkaline Phosphatase (34-104) U/L Total Protein (6.0-8.3) gm/dl Albumin (3.4-5.0) gm/dl Globulin (2.5-4.0) gm/dl Albumin/Globulin Ratio (0.9-2) Lipase (11-82) U/L Urine Color Yellow Urine Appearance Clear (Clear) Urine pH 5.5 (4.5-7.5) Ur Specific [place] 1.023 (1.000-1.030) Urine Protein 1+ H (Negative) Urine Glucose (UA) Negative (Negative) Urine Ketones Trace H (Negative) Urine Blood 3+ H (Negative) Urine Nitrite Negative (Negative) Urine Bilirubin Negative (Negative) Urine Urobilinogen Negative (Negative) Ur Leukocyte Esterase Negative (Negative) Urine WBC (Auto) 1-5 (0-5) /hpf Urine RBC (Auto) 10-30 H (0-4) /hpf U Hyaline Cast (Auto) 1-5 (0-5) /lpf U Epithel Cells (Auto) 0-5 (0-5) /lpf Urine Bacteria (Auto) Negative (Negative) SARS-CoV-2, RNA, NAAT NEGATIVE (NEGATIVE) Imaging Data Radiologist's Impression: Preliminary Findings Only See Final Report For Complete Findings CT ABDOMEN & PELVIS Without Contrast: Comparison: None. Clear lung bases. Normal cardiac size. Mild hiatal hernia, otherwise unremarkable stomach. Status post cholecystectomy. Otherwise liver, spleen and pancreas are normal. Normal bilateral adrenal glands. Multiple stones within the right kidney demonstrated, largest in the upper and lower pole age averaging approximately 4.8 mm. Mild right perinephric stranding with mild to moderate hydronephrosis. This is due to a stone located at the level of the right UP junction measuring 9 mm in maximum dimension. At least 2 stones visualized within the left kidney, largest seen in the lower pole measuring 3.3 mm. Otherwise unremarkable left kidney with no hydronephrosis. Mild atherosclerotic disease of aorta with no aneurysm. The small bowel and colon are nonspecific. Normal appendix. No signs of obstruction. Normal urinary bladder. Borderline prostate enlargement. Degenerative disease of the spine. Radiologist:Daniela Chapman MD [facility] Narrative Physical exam and history were performed. Nursing notes, EMR, and Medication List were personally reviewed. Patient appears to have right flank pain with history of kidney stones. With the help of case management I was able to review his recent [facility] records. The patient did have CT scan performed on 09/12/2021 that did show a 5 x 7 mm calculus in the right renal pelvis causing minimal hydronephrosis. The patient was seen by urology, and they are concerned that he has a more proximal obstructing stone. He does have a cardiac history and is on Brilinta, and is undergoing cardiac clearance prior to having lithotripsy performed. The patient states his pain is different and worse tonight. IV access was established and labs were obtained. He was hydrated with normal saline and given IV morphine and IV Zofran for comfort. He is also given IV Tylenol. Because his symptoms are worse, I do feel it is reasonable to perform a new CT scan. An order was placed for continuous cardiac monitoring. The monitor shows a rate of 78 with normal sinus rhythm. The patient's blood work is as above and was reviewed. He does have a slightly elevated white count of 13.8. He does not have a significant anemia or gross electrolyte imbalance. Lipase and transaminases are not diagnostic. Urine is with 3+ blood but no distinct evidence of infection. Covid swab was performed and negative. CT scan was reviewed by myself and radiology. The patient appears to have an obstructing 9 mm UPJ stone. On reevaluation the patient was comfortable. It did take several doses of morphine to bring him to a tolerated pain level. Due to his cardiac history he did not receive any NSAIDs. I did discuss options of care with the patient, and his concern is that his pain is worsening over the past day, and he does not feel that he is able to wait 4 more weeks to have this taken care of. I did discuss the case with both the on-call [facility] hospitalist as well as the [facility] urology provider. The patient will be made n.p.o. while plan is being formulated. Please see their respective dictations for further patient course, plan, and disposition. The chart was completed utilizing [employer] Speech Voice Recognition Software. Grammatical errors, random word insertions, pronoun errors, and incomplete sentences are an occasional consequence of this system due to software limitations, ambient noise, and hardware issues. Any formal questions or concerns about the content, text, or information contained within the body of this dictation should be directly addressed to the provider for clarification. . Impression & Plan Obstructive uropathy, Acute flank pain Discharge Plan Visit Data Chief Complaint: Kidney Stone Stated Complaint: KIDNEY STONE, BLOOD INURINE, ADBOMEN PAIN ED Provider: Azael Ross ED Midlevel Provider: Kash Sherman Discharge Problem: Obstructive uropathy, Acute flank pain Patient Disposition: Admitted As Inpatient Discharge Instructions Interventions: ED Discharge Assessment Last Done: 09/22/21 05:04
[2021-09-21 23:20] LABS: Basophils # (auto) 0.03 K/uL (0-0.2); Basophils % (auto) 0.2 %; Eosinophils # (auto) 0.13 K/uL (0-0.5); Eosinophils % (auto) 0.9 %; Hematocrit (blood only) 41.2 % (42-52); Hemoglobin 14.1 g/dL (14.0-18.0); Immature Granulocytes # (auto) 0.02 K/uL (0.00-0.02); Immature Granulocytes % (auto) 0.1 %; Lymphocytes % (auto) 18.7 %; Mean Corpuscular Hemoglobin 31.6 pg (25-34); Mean Corpuscular Hgb Conc 34.2 g/dL (32-36); Mean Corpuscular Volume 92.4 fL (80-100); Monocytes # (auto) 1.18 K/uL (0.11-0.59); Monocytes % (auto) 8.5 %; Neutrophils # (auto) 9.91 K/uL (1.4-6.5); Neutrophils % (auto) 71.6 %; Platelet Count 249 K/uL (130-400); RDW Coefficient of Variation 12.2 % (11.5-14.5); RDW Standard Deviation 41.3 fL (36.4-46.3); Red Blood Count 4.46 M/uL (4.7-6.1); White Blood Count 13.87 K/uL (4.8-10.8)
[2021-09-21] MEDS: MoRPHine SULFATE 4 MG/ML 1 ML CARP\\VIAL IV PRN (23:20)
[2021-09-21 23:40] LABS: Albumin Globulin Ratio 1.8 (0.9-2); BUN Creatinine Ratio 16.5 (10-20); Bilirubin,Total 0.6 mg/dl (0.2-1.0); Calcium 8.4 mg/dl (8.5-10.1); Creatinine Clr Calc Pharmacy 70.7 ml/min; Est GFR (African American) 89.3 ml/min; Est GFR (Non-African American) 77.1 ml/min; Globulin 2.2 gm/dl (2.5-4.0); Potassium 3.6 mmol/L (3.5-5.1); Total Protein 6.2 gm/dl (6.0-8.3)
[2021-09-22] MEDS: MoRPHine SULFATE 4 MG/ML 1 ML CARP\\VIAL IV PRN (00:59)
[2021-09-22] MEDS ORDERED: SODIUM CHLORIDE 0.9% 1000ML 1,000 ML IV SCH (01:00)
[2021-09-22 02:10] LABS: Appearance Urine Clear (Clear); Bacteria Urine Automated Negative (Negative); Bilirubin Urine Negative (Negative); Blood Urine 3+ (Negative); Color Urine Yellow; Epithelial Cell Urine Auto 0-5 /lpf (0-5); Glucose Urine UA Negative (Negative); Ketones Urine Trace (Negative); Leukocyte Esterase Urine Negative (Negative); Nitrite Urine Negative (Negative); Protein Urine 1+ (Negative); Specific Gravity Urine 1.023 (1.000-1.030); Urobilinogen Urine Negative (Negative); pH Urine 5.5 (4.5-7.5)
--- NOTE | 2021-09-22 03:18 | Urology Consultation ---
Date of Consultation September 22, 2021 Assessment & Plan (1) Nephrolithiasis: Patient is being admitted on the hospitalist service. We recommend proceeding as follows: Provide analgesics Provide antiemetics Consider adding Flomax for expulsive therapy Hydration with IV fluids Strain urine and save any kidney stones retrieved for proper analysis Keep the patient n.p.o. 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 concerning his dual antiplatelet therapy in the event that cystoscopy is required Supervising Physician Co-Signing Physician Notes Is feeling much better this morning than he was yesterday We reviewed several options We could certainly take him to the operating room for cystoscopy and stent today but he will require a second procedure if he goes through stent He prefers a solitary procedure would like to have ESWL He is on 2 different antiplatelet medications, he has been holding Brilinta since yesterday, still taking baby aspirin If we can obtain cardiac approval to hold his aspirin he could certainly remain off both medications until Thursday and then have an ESWL as an outpatient on Thursday He sees Raman Craig for cardiologyif we could consult with one of his partners for clearance that he can likely be discharged home later today with the plan of following up for his outpatient procedure Ok to eat now History of Present Illness Reason for Consultation: Nephrolithiasis History of Present Illness 51 year old male presented to [facility] secondary to worsening right flank pain. He notes he has a hx. of kidney stones and follows locally with Dr. Aldana of [facility] urology. He was in the process of scheduling lithotripsy but this has been delayed due to the need for cardiac clearance. He notes his pain is located in the right flank and radiates to the the front of his abdomen. he denies N/V. No fevers but he reports intermittent chills. He denies dysuria or urinary frequency. He noted prior hematuria but this has resolved. He was given morphine in the ED which improved his pain. Concerning his cardiac status,he notes he suffered an CA in April of 2020 and had SALLY placed to the Cx. amd OM arteries. 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 Craig, on 04/02/21 where it was determined that he required continue dual antiplatelet therapy due to complex coronary anatomy. His echocardiogram at the time of that visit showed an ejection fraction of 50%. Patient does report that he gets occasional chest discomfort on the left side of his chest but was told by his tile layer supervisor that this was not angina. He also denies any dyspnea on exertion that prevents him from performing his normal daily routine. Today in the emergency room the patient is noted to be afebrile and hemodynamically stable. He did undergo labs and imaging which I independently reviewed. A CT scan of the abdomen and pelvis showed the patient has multiple kidney stones within the right kidney. Was noted to have mild right perinephric stranding with moderate hydronephrosis due to a 9 mm kidney stone at the level of the right ureteropelvic junction. No left-sided hydronephrosis was noted. Labs include a CBC her white blood cell count was 13.8. His hemoglobin was noted to be normal. Platelet count was within the normal range. Chemistry profile showed sodium, potassium, BUN, and creatinine were all within normal range. A urinalysis showed 3+ blood and was negative for nitrite, leukocyte Estrace, bacteria, and only had 1-5 white blood cells per high-power field. A Covid test was performed was noted be negative. Is no over the mention that the patient did have a CT scan of the abdomen and pelvis during his most recent visit with his [facility] urologist and on that visit he was only noted to have mild right-sided hydronephrosis. At the time of my interview the patient was resting comfortably in bed and his pain was well controlled. Allergies Allergy/AdvReac Type Severity Reaction Status Date / Time pollen extracts Allergy Intermediate ITCHY Verified 09/21/21 23:26 EYES, RUNNY NOSE, CONGESTION Penicillins Allergy Unknown HAPPENED Verified 09/21/21 23:26 A CHILD Home Medications Medication Instructions Recorded Confirmed Type omeprazole 40 mg capsule,delayed 40 mg PO DAILY #90 cap 03/17/19 09/21/21 Rx release epinephrine 0.3 mg/0.3 mL 0.3 mg IM DIRECTED PRN ea 06/14/19 09/21/21 History injection, auto-injector lactobacillus combination no.4 3 0 mmu cells PO DAILY 04/24/20 09/21/21 History billion cell capsule (Probiotic) coenzyme Q10 100 mg capsule 100 mg PO DAILY #30 cap 05/29/20 09/21/21 Rx aspirin 81 mg tablet,delayed 81 mg PO QAM #30 tab 09/20/20 09/21/21 Rx release duloxetine 30 mg capsule,delayed 30 mg PO HS 12/04/20 09/21/21 History release lisinopril 2.5 mg tablet 2.5 mg PO QAM #30 tab 03/11/21 09/21/21 Rx ticagrelor 90 mg tablet (Brilinta) 90 mg PO BID #60 tab 04/15/21 09/21/21 Rx omalizumab 150 mg subcutaneous 300 mg SUBCUT .COMPLEX #2 ea 08/21/21 09/21/21 Rx solution (Xolair) metoprolol succinate 100 mg 100 mg PO DAILY #90 tab 09/05/21 09/21/21 Rx tablet,extended release 24 hr rosuvastatin 40 mg tablet 40 mg PO DAILY #90 tab 09/16/21 09/21/21 Rx diclofenac sodium 1 % topical gel 4 g TOPICAL QID PRN 09/21/21 09/21/21 History Patient History Medical History Atypical nevi Chronic idiopathic urticaria Chronic reflux esophagitis Depression Hyperlipidemia Ischemic cardiomyopathy Lyme disease Surgical History S/P laparoscopic cholecystectomy Status post cardiac catheterization 04/25/20 circ 100%, OM2 80%, LAD 50% ostial Status post coronary artery stent placement 04/25/20 - SALLY circ + OM2 Family History Other Family history non-contributory Social History Smoking Status: Never smoker Second Hand Exposure: No; Hx Alcohol Use: Yes Alcohol type: beer Hx Substance Use: No Preferred Language: Yi Communication Ability: Effective Interactive Media Specialist Required: No Beliefs That Will Affect Care: None marital status: Current Living Situation: Alone current occupational status: employed current occupation: Currently not working. Works for [employer] Other Information That Helps Us Care for You: No Feels Safe at Home: Yes Safety Concerns: Feels Safe At This Time Seatbelt Use: always Assistive Devices: None Review of Systems Constitutional: + chills; no fever Eyes: no diplopia Ear, Nose, Mouth, Throat: no ear pain Respiratory: no cough and no dyspnea Cardiovascular: no chest pain Gastrointestinal: + abdominal pain (Radiating from right flank); no nausea and no vomiting Genitourinary: + hematuria; no dysuria or no urinary frequency Musculoskeletal: + back pain (Right flank) Integumentary: no rash Neurologic: no localized weakness Physical Exam Constitutional: well developed and well nourished; no acute distress Eyes: no conjunctival abnormality ENMT: Ears: no external ear abnormality Mouth: no oropharynx abnormality Neck: trachea midline Respiratory: normal respiratory effort; no respiratory distress and no labored breathing Cardiovascular: Rate/Rhythm: regular rate and regular rhythm Gastrointestinal (Abdomen): Soft, nontender to palpation Musculoskeletal: No calf tenderness Skin: no rashes Neurologic: moves all extremities Psychiatric: A+Ox3, euthymic affect Genitourinary: no CVA tenderness Results & Data ([facility]) Vital Signs (Past 12 Hours) Vital Signs Temp Pulse Pulse Resp BP BP Pulse Ox 09/22/21 02:00 84 18 123/69 96 09/21/21 23:37 95 09/21/21 23:36 88 L 09/21/21 23:30 80 20 131/75 100 09/21/21 22:57 36.7 C 74 22 146/78 H 98 09/21/21 22:46 36.4 C L 72 18 164/122 H 100 PG Care Time/CCT Total # of Minutes Spent Total Time Spent with Patient: Total time spent is greater than 50% in coordination of care (as documented) at patient's floor/unit and/or counseling patient: Coding Level of Care Code 15756 Inpt Consult Level 5 Diagnoses Nephrolithiasis N20.0
[2021-09-22] MEDS ORDERED: CALCIUM GLUCONATE 1,000 MG/60 ML BAG IV STA (03:33)
[2021-09-22] MEDS ORDERED: TAMSULOSIN HCL 0.4 MG CAP PO ONE (03:36)
--- NOTE | 2021-09-22 03:37 | History & Physical Report ---
Date of Service September 22, 2021 Assessment & Plan (1) Obstructive uropathy: Plan: Secondary to recurrent kidney stones No sepsis for now Chronic systolic heart failure secondary to ischemic cardiomyopathy , patient euvolemic History CAD status post stent (April 2020) (ST elevation myocardial infarction): HTN, stable Asymptomatic transaminitis hyperlipidemia on statin Rx Hyperglycemia rule out DM Incidental finding of SPN on outpatient CT imaging GMF Analgesia, gentle IV hydration given systolic dysfunction history Strain urine Urology consult Re: Obstructive uropathy (Patient already seen by provider talent solutions manager who recommends Flomax and n.p.o. status in anticipation of procedure in a.m. Additional recommendation to consult patient's revenue field auditor for preop evaluation.) Continue patient's home aspirin as minimal antiplatelet Rx for secondary CAD prevention. (Urology provider in agreement after discussion.) Hold Brilinta for now in anticipation of procedure until Cardiology recommendations in. (Last dose of Brilinta was yesterday morning as per patient.) Preop EKG in light of patient's cardiac history. Follow LFTs; liver ultrasound, GI consult if with progression Check hemoglobin A1c Follow-up surveillance imaging for SPN following Fleischner criteria DVT prophylaxis. SCDs Re: Prospective urologic intervention Full code Patient son requesting updates from providers. Mr. Boyd Jr. Tessie (contact #[phone]) Text document was generated using tidy voice recognition software. It may contain grammatical or spelling errors. Kindly contact undersigned for clarification of any documentation item in question. History of Present Illness Chief Complaint: Worsening kidney stone pain Primary Care Provider: Van Bass MD History obtained from patient, family, and records. Medical history significant for chronic systolic heart failure secondary to ischemic cardiomyopathy (EF 45 to 50%, TTE 2020), CAD status post stent, hypertension, hyperlipidemia, urticaria, Lyme disease status post treatment, anxiety/mood disorder, IBS as per records, urolithiasis. Last confinement March 2021 for STEMI. Patient underwent primary PCI with SALLY for mid circumflex occlusion and ostial OM 2. 2 weeks ago, patient noted achy lower abdominal pain/pressure reminiscent of kidney stone pain. Dark urine and passage of small stone as per patient. Patient seen at PCPs office. Outpatient CT imaging from 09/12/2021 as follows: 1. A 5 x 7 millimeter calculus in the r ight renal pelvis resulting in minimal hydronephrosis. Bilateral nephrolithiasis.2. A 5 millimeter right middle lobe pulmonary nodule. For low risk patients, no routine follow-up is recommended. For high-risk patients optional follow-up CT can be obtained as 12 months. Patient evaluated by [facility] Urology provider 2 days ago. Outpatient ESWL contemplated next month clearance from patient's revenue field auditor as per documentation. Aspirin and Brilinta requested to be held 7 days prior to procedure. Yesterday, patient noted worsening of abdominal discomfort with radiation to the flank. Some nausea. No fever, no chills. No emesis. Patient brought by son to the ER for evaluation. 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 Baseline Functionality : Still able to do housework at home without rest/exertional chest pain, S OB prior to admission Allergies Allergy/AdvReac Type Severity Reaction Status Date / Time pollen extracts Allergy Intermediate ITCHY Verified 09/21/21 23:26 EYES, RUNNY NOSE, CONGESTION Penicillins Allergy Unknown HAPPENED Verified 09/21/21 23:26 A CHILD Home Medications Medication Instructions Recorded Confirmed Type omeprazole 40 mg capsule,delayed 40 mg PO DAILY #90 cap 03/17/19 09/21/21 Rx release epinephrine 0.3 mg/0.3 mL 0.3 mg IM DIRECTED PRN ea 06/14/19 09/21/21 History injection, auto-injector lactobacillus combination no.4 3 0 mmu cells PO DAILY 04/24/20 09/21/21 History billion cell capsule (Probiotic) coenzyme Q10 100 mg capsule 100 mg PO DAILY #30 cap 05/29/20 09/21/21 Rx aspirin 81 mg tablet,delayed 81 mg PO QAM #30 tab 09/20/20 09/21/21 Rx release duloxetine 30 mg capsule,delayed 30 mg PO HS 12/04/20 09/21/21 History release lisinopril 2.5 mg tablet 2.5 mg PO QAM #30 tab 03/11/21 09/21/21 Rx ticagrelor 90 mg tablet (Brilinta) 90 mg PO BID #60 tab 04/15/21 09/21/21 Rx omalizumab 150 mg subcutaneous 300 mg SUBCUT .COMPLEX #2 ea 08/21/21 09/21/21 Rx solution (Xolair) metoprolol succinate 100 mg 100 mg PO DAILY #90 tab 09/05/21 09/21/21 Rx tablet,extended release 24 hr rosuvastatin 40 mg tablet 40 mg PO DAILY #90 tab 09/16/21 09/21/21 Rx diclofenac sodium 1 % topical gel 4 g TOPICAL QID PRN 09/21/21 09/21/21 History Past Med/Surg History Medical History Atypical nevi Chronic idiopathic urticaria Chronic reflux esophagitis Depression Hyperlipidemia Ischemic cardiomyopathy Lyme disease Surgical History S/P laparoscopic cholecystectomy Status post cardiac catheterization 04/25/20 circ 100%, OM2 80%, LAD 50% ostial Status post coronary artery stent placement 04/25/20 - SALLY circ + OM2 Family History Other Family history non-contributory Social History Smoking Status: Never smoker Second Hand Exposure: No; Hx Alcohol Use: Yes Alcohol type: beer Hx Substance Use: No Preferred Language: Iraqi Communication Ability: Effective Supervisor Securities Vault Required: No Beliefs That Will Affect Care: None marital status: Current Living Situation: Alone current occupational status: employed current occupation: Currently not working. Works for [email or web address] Other Information That Helps Us Care for You: No Feels Safe at Home: Yes Safety Concerns: Feels Safe At This Time Seatbelt Use: always Assistive Devices: None Review of Systems Review of Systems: As per HPI, all 10 systems reviewed, all other ROS negative Physical Exam Physical Exam: GENERAL: Comfortable, pleasant, slightly anxious, no respiratory distress SKIN: Normal color, warm HEENT: Alopecia, Tupman palpebral conjunctivae, no ptosis, moist buccal mucosa NECK : Supple, no overt tenderness CHEST : CTA, no tenderness HEART : RRR, no obvious murmurs ABDOMEN: Some distention, minimal hypogastric tenderness EXTREMITIES : No LE swelling/tenderness, no other conspicuous deformities noted NEUROLOGIC : Coherent, no facial asymmetry, no other gross focality Results & Data Results & Data ([facility]) Vital Signs (Past 12 Hours) Vital Signs Temp Pulse Pulse Resp BP BP Pulse Ox 09/22/21 02:00 84 18 123/69 96 09/21/21 23:37 95 09/21/21 23:36 88 L 09/21/21 23:30 80 20 131/75 100 09/21/21 22:57 36.7 C 74 22 146/78 H 98 09/21/21 22:46 36.4 C L 72 18 164/122 H 100 Laboratory Results Laboratory Results WBC 13.87 K/uL (4.8-10.8) H 09/21/21 23:10 RBC 4.46 M/uL (4.7-6.1) L 09/21/21 23:10 Hgb 14.1 g/dL (14.0-18.0) 09/21/21 23:10 Hct 41.2 % (42-52) L 09/21/21 23:10 MCV 92.4 fL (80-100) 09/21/21 23:10 MCH 31.6 pg (25-34) 09/21/21 23:10 MCHC 34.2 g/dL (32-36) 09/21/21 23:10 RDW Std Deviation 41.3 fL (36.4-46.3) 09/21/21 23:10 RDW Coeff of Jaci 12.2 % (11.5-14.5) 09/21/21 23:10 Plt Count 249 K/uL (130-400) 09/21/21 23:10 MPV 11.0 fL (7.4-10.4) H 09/21/21 23:10 Immature Gran % (Auto) 0.1 % 09/21/21 23:10 Neut % (Auto) 71.6 % 09/21/21 23:10 Lymph % (Auto) 18.7 % 09/21/21 23:10 Bowie % (Auto) 8.5 % 09/21/21 23:10 Eos % (Auto) 0.9 % 09/21/21 23:10 Baso % (Auto) 0.2 % 09/21/21 23:10 Neut # (Auto) 9.91 K/uL (1.4-6.5) H 09/21/21 23:10 Lymph # (Auto) 2.60 K/uL (1.2-3.4) 09/21/21 23:10 Bowie # (Auto) 1.18 K/uL (0.11-0.59) H 09/21/21 23:10 Eos # (Auto) 0.13 K/uL (0-0.5) 09/21/21 23:10 Baso # (Auto) 0.03 K/uL (0-0.2) 09/21/21 23:10 Immature Gran # (Auto) 0.02 K/uL (0.00-0.02) 09/21/21 23:10 Sodium 137 mmol/L (136-145) 09/21/21 23:10 Potassium 3.6 mmol/L (3.5-5.1) 09/21/21 23:10 Chloride 103 mmol/L (98-107) 09/21/21 23:10 Carbon Dioxide 25 mmol/L (21-32) 09/21/21 23:10 Anion Gap 9 (3-11) 09/21/21 23:10 BUN 18 mg/dl (6-23) 09/21/21 23:10 Creatinine 1.09 mg/dl (0.6-1.4) 09/21/21 23:10 Est Cr Clr Drug Dosing 70.7 ml/min 09/21/21 23:10 Est GFR ( Amer) 89.3 ml/min 09/21/21 23:10 Est GFR (Non-Af Amer) 77.1 ml/min 09/21/21 23:10 BUN/Creatinine Ratio 16.5 (10-20) 09/21/21 23:10 Glucose 113 mg/dl (70-99(Fasting)) H 09/21/21 23:10 Calcium 8.4 mg/dl (8.5-10.1) L 09/21/21 23:10 Total Bilirubin 0.6 mg/dl (0.2-1.0) 09/21/21 23:10 AST 80 U/L (13-39) H 09/21/21 23:10 ALT 56 U/L (7-52) H 09/21/21 23:10 Alkaline Phosphatase 64 U/L (34-104) 09/21/21 23:10 Total Protein 6.2 gm/dl (6.0-8.3) 09/21/21 23:10 Albumin 4.0 gm/dl (3.4-5.0) 09/21/21 23:10 Globulin 2.2 gm/dl (2.5-4.0) L 09/21/21 23:10 Albumin/Globulin Ratio 1.8 (0.9-2) 09/21/21 23:10 Lipase 26 U/L (11-82) 09/21/21 23:10 Urine Color Yellow 09/22/21 01:30 Urine Appearance Clear (Clear) 09/22/21 01:30 Urine pH 5.5 (4.5-7.5) 09/22/21 01:30 Ur Specific [place] 1.023 (1.000-1.030) 09/22/21 01:30 Urine Protein 1+ (Negative) H 09/22/21 01:30 Urine Glucose (UA) Negative (Negative) 09/22/21 01:30 Urine Ketones Trace (Negative) H 09/22/21 01:30 Urine Blood 3+ (Negative) H 09/22/21 01:30 Urine Nitrite Negative (Negative) 09/22/21 01:30 Urine Bilirubin Negative (Negative) 09/22/21 01:30 Urine Urobilinogen Negative (Negative) 09/22/21 01:30 Ur Leukocyte Esterase Negative (Negative) 09/22/21 01:30 Urine WBC (Auto) 1-5 /hpf (0-5) 09/22/21 01:30 Urine RBC (Auto) 10-30 /hpf (0-4) H 09/22/21 01:30 U Hyaline Cast (Auto) 1-5 /lpf (0-5) 09/22/21 01:30 U Epithel Cells (Auto) 0-5 /lpf (0-5) 09/22/21 01:30 Urine Bacteria (Auto) Negative (Negative) 09/22/21 01:30 SARS-CoV-2, RNA, NAAT NEGATIVE (NEGATIVE) 09/22/21 01:[address] abdomen pelvis initial read: Clear lung bases. Normal cardiac size. Mild hiatal hernia, otherwise unremarkable stomach. Status post cholecystectomy. Otherwise liver, spleen and pancreas are normal. Normal bilateral adrenal glands. Multiple stoneswithin the right kidneydemonstrated, largest in the upper and lower pole age averaging approximately4.8 mm. Mild right perinephric stranding with mild to moderate hydronephrosis. This is due to a stone located at the level of the right UP junction measuring 9 mmin maximumdimension. At least 2 stones visualized within the left kidney, largest seen in the lower pole measuring 3.3 mm. Otherwise unremarkable left kidneywith no hydronephrosis. Mild atherosclerotic disease of aortawith no aneurysm. The small bowel and colon are nonspecific. Normal appendix. No signs of obstruction. Normal urinary bladder. Borderline prostate enlargement. Degenerative disease of the spine Chest x-ray as per my interpretation no congestion
[2021-09-22] MEDS ORDERED: oxyCODONE HCL IR 5 MG TAB (IMMEDIATE RELEASE) PO PRN (04:10)
[2021-09-22] MEDS ORDERED: LACTATED RINGER'S 1,000 ML IV ONE (04:10)
[2021-09-22] MEDS ORDERED: LORazepam 0.25 MG/0.5 ML VIAL IV PRN (04:10)
[2021-09-22] MEDS ORDERED: ACETAMINOPHEN 325 MG TAB PO PRN ×2 (04:10→06:47)
[2021-09-22] MEDS ORDERED: PROMETHAZINE HCL 12.5 MG in SODIUM CHLORIDE 0.9% 50 ML IV PRN (04:10)
[2021-09-22] MEDS ORDERED: MoRPHine SULFATE 4 MG/ML 1 ML CARP\\VIAL IV PRN (04:10)
[2021-09-22 06:06] LABS: Basophils # (auto) 0.01 K/uL (0-0.2); Basophils % (auto) 0.1 %; Eosinophils # (auto) 0.05 K/uL (0-0.5); Eosinophils % (auto) 0.6 %; Hematocrit (blood only) 37.3 % (42-52); Hemoglobin 12.5 g/dL (14.0-18.0); Immature Granulocytes # (auto) 0.01 K/uL (0.00-0.02); Immature Granulocytes % (auto) 0.1 %; Lymphocytes # (auto) 1.46 K/uL (1.2-3.4); Lymphocytes % (auto) 16.5 %; Mean Corpuscular Hemoglobin 31.1 pg (25-34); Mean Corpuscular Hgb Conc 33.5 g/dL (32-36); Mean Corpuscular Volume 92.8 fL (80-100); Mean Platelet Volume 10.9 fL (7.4-10.4); Monocytes # (auto) 0.88 K/uL (0.11-0.59); Monocytes % (auto) 9.9 %; Neutrophils # (auto) 6.45 K/uL (1.4-6.5); Neutrophils % (auto) 72.8 %; Platelet Count 185 K/uL (130-400); RDW Coefficient of Variation 12.3 % (11.5-14.5); Red Blood Count 4.02 M/uL (4.7-6.1); White Blood Count 8.86 K/uL (4.8-10.8)
[2021-09-22 06:40] LABS: Albumin Level 3.5 gm/dl (3.4-5.0); BUN Creatinine Ratio 16.8 (10-20); Bilirubin Direct 0.5 mg/dl (0-0.2); Bilirubin,Total 1.1 mg/dl (0.2-1.0); Calcium 8.4 mg/dl (8.5-10.1); Est GFR (African American) 91.4 ml/min; Est GFR (Non-African American) 78.8 ml/min; Potassium 3.9 mmol/L (3.5-5.1); Total Protein 5.5 gm/dl (6.0-8.3)
--- NOTE | 2021-09-22 06:51 | XRay Report ---
XR chest 1V portable CLINICAL HISTORY: low o2 COMPARISON STUDY: Chest radiograph April 24, 2020. FINDINGS: Lung volumes are normal. Lungs are clear. There is no pneumothorax or pleural effusion. Car diac size is normal. Mediastinal contours are normal. There is no evidence for pulmonary edema. IMPRESSION: No acute cardiopulmonary findings. ACT 112: Negative or not required by law. Electronically signed by: Santo Cedillo M.D. 09/22/2021 6:49 AM
--- NOTE | 2021-09-22 08:12 | CT Scan Report ---
CT OF THE ABDOMEN AND PELVIS WITHOUT CONTRAST CLINICAL HISTORY: right flank pain, hx stones COMPARISON STUDY: No previous studies for comparison. TECHNIQUE: Axial images of the abdomen and pelvis were obtained without IV contrast. Images were revi ewed in the axial, sagittal, and coronal planes. Automated exposure control was utilized for the laron dy. A dose lowering technique was utilized adhering to the principles of ALARA. FINDINGS: A 6 mm subpleural right middle lobe nodule on image 11 of 406 is noted. There is a 4 mm sub pleural left lower lobe nodule on image 5. No pneumatosis, free air or portal venous gas is present. A small hiatal hernia is present. Moderate right hydronephrosis due to a 1 x 0.5 cm right ureteropelv ic junction calculus is noted. There is perinephric stranding. Right renal calculi measure up to 4 mm . Left renal calculi measure up to 3 mm. There are no left ureteral calculi. There is no left hydrone phrosis. There is no biliary ductal dilatation status post cholecystectomy. Unenhanced images of the liver, spleen, adrenal glands and pancreas are unremarkable. There is no evidence for acute appendici tis. There is hyperdense material within the appendix. Moderate amount stool is present. Colonic dive rticulosis is noted without evidence for acute diverticulitis. There is no lymphadenopathy. No acute fracture or suspicious lesion is identified within the visualized skeletal structures. IMPRESSION: 1. 1 x 0.5 cm right ureteropelvic junction calculus which results in moderate right hydronephrosis. 2. Bilateral nephrolithiasis. 3. A few low suspicion subpleural nodules within the lower lungs measuring up to 6 mm. These are prob ably benign. A chest CT in 6 months to ensure stability is recommended ACT 112: Negative or not required by law. Electronically signed by: Santo Cedillo M.D. 09/22/2021 8:11 AM
[2021-09-22] MEDS ORDERED: ASPIRIN 81 MG ECTAB PO SCH (09:00)
[2021-09-22] MEDS ORDERED: lisinopril 2.5 MG TAB PO SCH (09:00)
[2021-09-22] MEDS ORDERED: METOPROLOL SUCC 50MG EXT REL TAB PO SCH (09:00)
[2021-09-22] MEDS ORDERED: PANTOprazole 40 MG TAB PO SCH (09:00)
[2021-09-22] MEDS ORDERED: ROSUVASTATIN CALCIUM 20 MG TAB PO SCH (09:00)
--- NOTE | 2021-09-22 10:52 | Ultrasound Report ---
US liver CLINICAL HISTORY: Abnormal liver function tests. COMPARISON STUDY: CT of the abdomen and pelvis September 21, 2021. FINDINGS: There is no biliary ductal dilatation status post cholecystectomy. The common bile duct jean sures 5 mm in caliber. 2 echogenic right hepatic lobe lesions measure up to 1.2 cm. Liver morphology is normal. Pancreatic body is normal. Pancreatic head and tail are partially obscured. Mild to modera te right hydronephrosis is noted. Several right renal calculi are noted. Right ureteropelvic junction calculus seen on CT may be occult sonography. IMPRESSION: 1. No biliary ductal dilatation status post cholecystectomy. 2. Mild to moderate right hydronephrosis. Right nephrolithiasis. Right ureteropelvic junction calculu s on CT of September 21, 2021 may be occult by sonography. 3. Two echogenic right hepatic lobe lesions that measure up to 1.2 cm. These favor hemangiomas. A rig ht upper quadrant ultrasound in 6 months to ensure stability is recommended. ACT 112: Negative or not required by law. Electronically signed by: Santo Cedillo M.D. 09/22/2021 10:51 AM
--- NOTE | 2021-09-22 11:29 | Cardiology Consultation ---
Date of Consultation September 22, 2021 Assessment & Plan (1) Preop cardiovascular exam: -the patient is an acceptable cardiac risk for urologic surgery without further testing. -would continue metoprolol succinate and lisinopril through the perioperative period. -agree with holding Brilinta at this time. -advisable to continue aspirin without interruption, however, can hold for short period of time if necessary. -discussed with Dr. Og. -ESWL does carry a risk of bleeding. -could perform a cystoscopic approach which has a lower risk of bleeding. -decision on anti-platelet therapy up to Dr. Og and the patient. (2) Coronary artery disease: -s/p acute inferolateral CT April 2020. -LCx and OM2 SALLY placed at that time. -nonobstructive ostial LAD evaluated by IVUS (50% stenosis). -continue medical management. (3) Ischemic cardiomyopathy: -LVEF initially 30-35% by echocardiogram. -follow-up study noted an ejection fraction of 45-50% (March 2021). (4) Transaminitis: -significant elevation in transaminases. -liver ultrasound notes 2 hepatic lesions, likely hemangiomas. -agree with holding rosuvastatin. -follow liver enzymes closely. History of Present Illness Attending Physician: Jayesh Kraus MD History of Present Illness Mr. Kurtz is a 51-year-old male admitted yesterday with acute renal colic from an obstructing stone in the right renal pelvis. He will require a surgical intervention in the near future. This consultation was ordered as a preoperative evaluation, and to address his dual anti-platelet therapy. Of note, patient typically follows with Dr. Craig in the outpatient setting. The patient's recent history began approximately 2 weeks ago when he was experiencing intermittent right flank pain. He was diagnosed with obstructing stone in the right renal pelvis and was scheduled for a surgical intervention in late September. However, on the night of presentation, the patient's pain was rated a 10/10 and he proceeded to the emergency room for further care. Fortunately, with intravenous hydration and analgesics, the patient's pain is improved. He is scheduled for a procedure to be performed on Thursday. The patient carries a history of coronary artery disease. He suffered an acute inferolateral ST-elevation CT back in April of 2020. He had 2 stents placed at that time. A 3.5 x 15 SALLY was placed in the mid LCx, and a 2.75 x 15 SALLY was placed in the proximal OM 2. He was also found to have a 50% ostial LAD confirmed by IVUS. Initially, his left ventricular ejection fraction was 30- 35%, however, this improved to 45-50% on an echocardiogram performed in March 2021. The patient has done well from a cardiac perspective since that time. He is vigorous on a daily basis both at home and work. He does not experience exertional angina pectoris or limiting dyspnea. He further denies syncope, presyncope, PND, orthopnea, palpitations, lower extremity edema, and claudication. Currently, patient is resting comfortably in bed without complaints. Past medical and surgical history 1. Coronary artery disease-see above 2. Mid LCx SALLY-April 2020 3. Ostial OM2 SALLY-April 2020 4. Ischemic cardiomyopathy-resolved, March 2021 5. Hypercholesterolemia 6. GERD 7. Nephrolithiasis 8. Chronic idiopathic urticaria 9. 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 Mother is 70 and healthy A brother had intracoronary stent placed at the age of 50. Review of systems A 10 review systems was negative except that described above. Allergies Allergy/AdvReac Type Severity Reaction Status Date / Time pollen extracts Allergy Intermediate ITCHY Verified 09/21/21 23:26 EYES, RUNNY NOSE, CONGESTION Penicillins Allergy Unknown HAPPENED Verified 09/21/21 23:26 A CHILD Home Medications Medication Instructions Recorded Confirmed Type omeprazole 40 mg capsule,delayed 40 mg PO DAILY #90 cap 03/17/19 09/21/21 Rx release epinephrine 0.3 mg/0.3 mL 0.3 mg IM DIRECTED PRN ea 06/14/19 09/21/21 History injection, auto-injector lactobacillus combination no.4 3 0 mmu cells PO DAILY 04/24/20 09/21/21 History billion cell capsule (Probiotic) coenzyme Q10 100 mg capsule 100 mg PO DAILY #30 cap 05/29/20 09/21/21 Rx aspirin 81 mg tablet,delayed 81 mg PO QAM #30 tab 09/20/20 09/21/21 Rx release duloxetine 30 mg capsule,delayed 30 mg PO HS 12/04/20 09/21/21 History release lisinopril 2.5 mg tablet 2.5 mg PO QAM #30 tab 03/11/21 09/21/21 Rx ticagrelor 90 mg tablet (Brilinta) 90 mg PO BID #60 tab 04/15/21 09/21/21 Rx omalizumab 150 mg subcutaneous 300 mg SUBCUT .COMPLEX #2 ea 08/21/21 09/21/21 Rx solution (Xolair) metoprolol succinate 100 mg 100 mg PO DAILY #90 tab 09/05/21 09/21/21 Rx tablet,extended release 24 hr rosuvastatin 40 mg tablet 40 mg PO DAILY #90 tab 09/16/21 09/21/21 Rx diclofenac sodium 1 % topical gel 4 g TOPICAL QID PRN 09/21/21 09/21/21 History Patient History Medical History Atypical nevi Chronic idiopathic urticaria Chronic reflux esophagitis Depression Hyperlipidemia Ischemic cardiomyopathy Lyme disease Surgical History S/P laparoscopic cholecystectomy Status post cardiac catheterization 04/25/20 circ 100%, OM2 80%, LAD 50% ostial Status post coronary artery stent placement 04/25/20 - SALLY circ + OM2 Family History Other Family history non-contributory Social History Smoking Status: Never smoker Second Hand Exposure: No; Hx Alcohol Use: Yes Alcohol type: beer Hx Substance Use: No Preferred Language: Hungarian Communication Ability: Effective Auto Dealer Required: No Beliefs That Will Affect Care: None marital status: Current Living Situation: Alone current occupational status: employed current occupation: Currently not working. Works for [employer] Other Information That Helps Us Care for You: No Feels Safe at Home: Yes Safety Concerns: Feels Safe At This Time Seatbelt Use: always Assistive Devices: None Physical Exam Physical Exam: In general is well-developed well-nourished white male in no acute distress. HEENT exam is negative. Neck is supple with full carotid upstrokes. No carotid bruits. Jugular is pressure is flat at 90. There is no thyromegaly. Cardiovascular exam reveals a regular rhythm with normal S1 and S2. No obvious murmurs or S3. Lungs are clear without rales, rhonchi or wheezes. Abdomen is soft and nontender without bruits. Extremities reveal intact radial artery and posterior tibial pulses bilaterally. There is no peripheral edema. Results & Data ([facility]) Vital Signs (Past 12 Hours) Vital Signs Temp Pulse Resp BP Pulse Ox 09/22/21 08:16 62 102/61 09/22/21 07:46 36.6 C 63 18 100/62 97 09/22/21 05:06 36.6 C 78 18 130/74 95 09/22/21 05:00 36.6 C 78 18 130/74 95 09/22/21 02:00 84 18 123/69 96 09/21/21 23:37 95 09/21/21 23:36 88 L 09/21/21 23:30 80 20 131/75 100 Laboratory Results CBC notes hemoglobin of 12.5, hematocrit 37.3, white count 8.86, platelet count [id number]. Electrolytes note a sodium of 137, potassium 3.9, chloride 104, bicarb 27, BUN 18, creatinine 1.07, glucose of 100. AST initially was 80 and has now increased to 512. ALT was 56 but now increased to 348. Diagnostic Findings EKG has not been performed. Chest x-ray shows no acute disease. Abdominal ultrasound notes mild to moderate right hydronephrosis with right nephrolithiasis. There are 2 right hepatic lobe masses, likely hemangiomas. PG Care Time/CCT Total # of Minutes Spent Total Time Spent with Patient: Total time spent is greater than 50% in coordination of care (as documented) at patient's floor/unit and/or counseling patient: Coding Level of Care Code 30748 Inpt Consult Level 4 Diagnoses Preop cardiovascular exam Z01.810 Coronary artery disease I25.10 Ischemic cardiomyopathy I25.5 Transaminitis R74.01
--- NOTE | 2021-09-22 14:27 | Discharge Summary ---
Date of Service September 22, 2021 Admission HPI Per Admitting Provider History obtained from patient, family, and records. Medical history significant for chronic systolic heart failure secondary to ischemic cardiomyopathy (EF 45 to 50%, TTE 2020), CAD status post stent, hypertension, hyperlipidemia, urticaria, Lyme disease status post treatment, anxiety/mood disorder, IBS as per records, urolithiasis. Last confinement March 2021 for STEMI. Patient underwent primary PCI with SALLY for mid circumflex occlusion and ostial OM 2. 2 weeks ago, patient noted achy lower abdominal pain/pressure reminiscent of kidney stone pain. Dark urine and passage of small stone as per patient. Patient seen at PCPs office. Outpatient CT imaging from 09/12/2021 as follows: 1. A 5 x 7 millimeter calculus in the r ight renal pelvis resulting in minimal hydronephrosis. Bilateral nephrolithiasis.2. A 5 millimeter right middle lobe pulmonary nodule. For low risk patients, no routine follow-up is recommended. For high-risk patients optional follow-up CT can be obtained as 12 months. Patient evaluated by [facility] provider 2 days ago. 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 Aspirin and Brilinta requested to be held 7 days prior to procedure. Yesterday, patient noted worsening of abdominal discomfort with radiation to the flank. Some nausea. No fever, no chills. No emesis. Patient brought by son to the ER for evaluation. 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 Baseline Functionality : Still able to do housework at home without rest/exertional chest pain, S OB prior to admission Admission Exam Per Admitting Provider GENERAL: Comfortable, pleasant, slightly anxious, no respiratory distress SKIN: Normal color, warm HEENT: Alopecia, [place] palpebral conjunctivae, no ptosis, moist buccal mucosa NECK : Supple, no overt tenderness CHEST : CTA, no tenderness HEART : RRR, no obvious murmurs ABDOMEN: Some distention, minimal hypogastric tenderness EXTREMITIES : No LE swelling/tenderness, no other conspicuous deformities noted NEUROLOGIC : Coherent, no facial asymmetry, no other gross focality Principal Diagnosis Obstructive uropathyright side Liver hemangiomas Left lower lung subpleural nodules Discharge Exam GENERAL: Alert and oriented x3. NAD, on RA. HEENT: No pallor, no icterus. Pupils equal, round and reactive to light. Oral mucosa moist. NECK: No JVD, no neck masses. HEART: S1 and S2 heard. Regular rate and rhythm. No murmur, no gallop. RESPIRATORY SYSTEM: Normal AP diameter. No accessory muscle use. No wheezing, no crackles. ABDOMEN: Soft, bowel sounds present, nontender, no distention. CENTRAL NERVOUS SYSTEM: No facial droop. Speech is clear. Obeys simple commands. Moves extremities. EXTREMITIES: No edema, no erythema seen. No costovertebral angle tenderness appreciated. Discharge Data Allergies Allergy/AdvReac Type Severity Reaction Status Date / Time pollen extracts Allergy Intermediate ITCHY Verified 09/21/21 23:26 EYES, RUNNY NOSE, CONGESTION Penicillins Allergy Unknown HAPPENED Verified 09/21/21 23:26 A CHILD Consultations 09/22/21 03:26 Consult Urology Stat ED Decision to Admit Stat 09/22/21 04:10 Consult Cardiology Routine 09/22/21 06:51 Consult Gastroenterology Routine Ordered Studies 09/21/21 23:05 CT abd pelvis wo con Urgent 09/22/21 06:50 US liver Routine Hospital Course (1) Obstructive uropathy: (2) Transaminitis: 51-year-old gentleman with history of chronic systolic heart failure secondary to ischemic cardiomyopathy, CAD status post stent, HTN, HLD, urticaria, Lyme disease, anxiety/mood disorder and IBS and urolithiasis presented 09/21 to our ED with complaint of achy lower abdominal pain/pressure reminiscent of kidney stone pain. Patient being evaluated by PCP and urology as an outpatient and were con templating ESWL next month. While inpatient, cardiology evaluated and cleared him for surgery. Hold Brilinta until ESWL on Thursday. Decision to hold aspirin rests between patient and urology per cardiology. Patient is aware. Urology evaluated and patient did not want a stent but wanted to go with ESWL and hence scheduled for Thursday. Discharging him on Flomax, pain medications and Zofran per urology recommendation. Patient also evaluated by GI for transaminitis, GI okay with patient being discharged today and recommended follow-up LFT on Thursday and coming Thursday and have the results forwarded to his PCP/follow-up with the PCP. Patient made aware. Patient also made aware that he had up to 1.2 cm nodules in his right side of the liver and needed to be follow-up with ultrasound in 6 months. Patient also has lower lung subpleural nodules up to [address] mm [address] needs repeat CT scan of the chest in 6 months to ensure stability. Patient reports no nausea/pain under control/no fever/no pain or burning while passing urine/and is vitally/hemodynamically stable on the day of discharge. Patient wants to go home and will follow up with urology as an outpatient for upcoming ESWL on Thursday. Following instructions were communicated to the patient at the point of discharge: Follow-up with your primary care physician within a week time. As discussed at the bedside, have your blood work LFT repeated tomorrow and Thursday and follow-up with the PCP. As discussed at the bedside, your hepatitis panel is drawn and pending, follow- up with your primary care physician for the final results. As discussed at the bedside, your right side of the liver has 2 lesions measuring up to 1.2 cm, likely hemangiomas, you will need repeat right upper quadrant ultrasound in 6 months to ensure stability. Also you have few low suspicious subpleural nodules within the lower lungs measuring up to [address] chest is recommended in 6 months to ensure stability. Maintain follow-up with your urology for upcoming stone removal surgery (ESWL on Thursday), also maintain follow-up regarding the anticoagulation as directed by cardiology. Continue to hold Brilinta until surgery and the decision to hold aspirin will be between you and your urology per cardiology. Your Brilinta [for upcoming surgery] and rosuvastatin [for transaminitis] are held at the time of discharge, follow-up with your cardiology or primary care physician for furthe eval and to resume them as an outpatient. You will be discharged on few days worth of pain medication, you will need to get in touch with your primary care physician for further need of pain medication if need arises. Take medications as prescribed. Total Time Total Time Spent Total Time Spent (In Minutes): 40 Discharge Plan Discharge Items Patient Disposition: Home - Self-Care Reason For Visit: OBS UROPATHY Discharge Diagnosis: Obstructive uropathyright side Liver hemangiomas Left lower lung subpleural nodules Activity: Resume your previous activity Non-emergency contact: Primary Care Provider Call non-emergency contact if: you have any medication questions, your symptoms worsen, your pain is not controlled and your temperature is above 101 Follow-up/Referrals: Van Bass MD [Primary Care Provider] - Diet: Heart Healthy Addtl Attending Provider Instructions: Follow-up with your primary care physician within a week time. As discussed at the bedside, have your blood work LFT repeated tomorrow and Thursday and follow-up with the PCP. As discussed at the bedside, your hepatitis panel is drawn and pending, follow- up with your primary care physician for the final results. As discussed at the bedside, your right side of the liver has 2 lesions measuring up to 1.2 cm, likely hemangiomas, you will need repeat right upper quadrant ultrasound in 6 months to ensure stability. Also you have few low suspicious subpleural nodules within the lower lungs measuring up to [address] chest is recommended in 6 months to ensure stability. Maintain follow-up with your urology for upcoming stone removal surgery (ESWL on Thursday), also maintain follow-up regarding the anticoagulation as directed by cardiology. Continue to hold Brilinta until surgery and the decision to hold aspirin will be between you and your urology per cardiology. Your Brilinta [for upcoming surgery] and rosuvastatin [for transaminitis] are held at the time of discharge, follow-up with your cardiology or primary care physician for furthe eval and to resume them as an outpatient. You will be discharged on few days worth of pain medication, you will need to get in touch with your primary care physician for further need of pain medication if need arises. Take medications as prescribed. Pending Studies at Discharge: Yes (Hepatitis panel) Stand-Alone Forms: [facility] Shell, Smoking Cessation Medications and DC Order Prescriptions: New tamsulosin 0.4 mg Capsule 0.4 mg PO QAM Qty: 30 RF: 0 ondansetron 4 mg tablet,disintegrating 4 mg PO DAILY 10 Days Qty: 10 RF: 0 oxycodone 5 mg tablet 5 mg PO Q8H PRN (Reason: pain) Qty: 12 RF: 0 Continued aspirin 81 mg tablet,delayed release (DR/EC) 81 mg PO QAM Qty: 30 RF: 11 lisinopril 2.5 mg tablet 2.5 mg PO QAM Qty: 30 RF: 11 Xolair 150 mg recon soln 300 mg subcut .COMPLEX Qty: 2 RF: 11 metoprolol succinate 100 mg tablet extended release 24 hr 100 mg PO DAILY Qty: 90 RF: 3 omeprazole 40 mg capsule,delayed release(DR/EC) 40 mg PO DAILY Qty: 90 RF: 0 coenzyme Q10 100 mg capsule 100 mg PO DAILY Qty: 30 RF: 0 duloxetine 30 mg capsule,delayed release(DR/EC) 30 mg PO HS RF: 0 epinephrine 0.3 mg/0.3 mL auto-injector 0.3 mg IM DIRECTED PRN (Reason: severe allergiic reaction) RF: 0 Probiotic 3 billion cell Capsule 0 mmu cells PO DAILY RF: 0 diclofenac sodium [Voltaren] 1 % Gel 4 g TOPICAL QID PRN (Reason: Pain) RF: 0 Discontinued Brilinta 90 mg tablet 90 mg PO BID Qty: 60 RF: 11 rosuvastatin 40 mg tablet 40 mg PO DAILY Qty: 90 RF: 3 Discharge Orders: Discharge Order (Routine); Ordered 09/22/21 Ordered By: Jayesh Kraus Admission Data Admit Date/Time: 09/22/21 04:07 Attending Provider: Jayesh Kraus Admit Provider: Manny Barnhart Primary Care Provider: Van Bass Other Providers: Nestor Craig ; Manny Barnhart ; Nestor Og ; Shashi Paris
--- NOTE | 2021-09-22 16:08 | Consultation Report ---
GASTROENTEROLOGY CONSULTATION DATE OF SERVICE: 09/22/2021 RACE: . ATTENDING PHYSICIAN: Jayesh Kraus MD. CONSULTING PHYSICIAN: Shashi Paris DO. REASON FOR CONSULTATION: Elevated transaminases. HISTORY OF PRESENT ILLNESS: Oliver Kurtz is a 51-year-old male who presented to the Department of Emergency Medicine late last evening with complaints of blood in his urine and abdominal pain. He stated that he had a history of kidney stones and felt that this was what was causing his symptoms as he had previously been diagnosed approximately 9 days prior to his evaluation. He described the pain as 10/10, mainly on the right side, radiating to his flank, but also complains of pain in his anterior aspect of his abdomen as well. He did admit to having periods of lightheadedness and diaphoresis as an outpatient prior to his arrival at the Department of Emergency Medicine. He underwent laboratory testing upon arrival and was noted to have a white blood cell count of 13.87 with an elevation of his AST to 80 and ALT to 56. He underwent a CT scan of the abdomen and pelvis and was noted to have a 1.0 x 0.5 cm right ureteropelvic junction calculus with moderate right hydronephrosis. He also had findings of bilateral nephrolithiasis. He had repeat laboratory studies done early this morning and was noted to have worsening LFTs with a total bilirubin of 1.1, direct bilirubin of 0.5, AST of 512 and an ALT of 348 with an alkaline phosphatase of 73. This prompted ultrasound of the liver, which showed no biliary ductal dilatation, status post cholecystectomy. Again, mild to moderate right hydronephrosis and two echogenic right hepatic lobe lesions measuring 1.2 cm, felt to be consistent with hemangiomas. The patient was subsequently admitted, was given pain medications, IV fluids. He was seen by urology who is planning to perform lithotripsy later this week. At the time that I saw the patient, he stated that he was having an improvement in his symptoms overall. He denied any jaundice, acholic stools, dark urine, or pruritus. He states that he has never been told that his liver panel was elevated previously. He denies any alcohol use and denies any illicit drug use. 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 He states that he has not had any sick contacts and denies any other complaints at this time. PAST MEDICAL HISTORY: Significant for chronic idiopathic urticaria, chronic reflux esophagitis, depression, hyperlipidemia, ischemic cardiomyopathy, Lyme disease, atypical nevi, coronary artery disease. PAST SURGICAL HISTORY: Includes a laparoscopic cholecystectomy, cardiac catheterization, coronary artery stent placement. ALLERGIES: POLLEN AND PENICILLINS. MEDICATIONS: At the present time include Tylenol 325 mg p.o. q.6 p.r.n., aspirin 81 mg p.o. q.a.m., Ativan 0.25 mg q.4 hours, Cymbalta 30 mg p.o. at bedtime, Zestril 2.5 mg p.o. q.a.m., metoprolol 100 mg p.o. daily, morphine 4 mg IV q.4 p.r.n., oxycodone 5-10 mg p.o. q.i.d. p.r.n., Protonix 40 mg p.o. daily, Phenergan 12.5 mg IV q.6 hours p.r.n. and Flomax 0.4 mg p.o. q.a.m. SOCIAL HISTORY: He is , lives alone. 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 He denies any chronic alcohol use. He says he has an occasional beer. He denies any tobacco or illicit drug use. FAMILY HISTORY: Negative for GI malignancy or inflammatory bowel disease. REVIEW OF SYSTEMS: Negative x12 systems review other than pertinent positives listed in the HPI. PHYSICAL EXAMINATION: VITAL SIGNS: Include a temperature of 36.6, pulse 62, respirations 18, blood pressure 102/61, pulse ox 97% on room air. GENERAL: He is awake and cooperative, in no acute distress. HEAD: Normocephalic, atraumatic. EYES: Pupils equal, round. Extraocular muscles are intact. NECK: Soft and supple. There is no JVD or lymphadenopathy. CHEST: Clear to auscultation bilaterally. CARDIOVASCULAR: Regular rate and rhythm. ABDOMEN: Soft. Tender in the right upper quadrant and left upper quadrant, nondistended. There are positive bowel sounds. There is no hepatosplenomegaly or stigmata of chronic liver disease. EXTREMITIES: No clubbing, cyanosis or edema. SKIN: Soft, pink. Good turgor. LABORATORIES AND RADIOGRAPHIC STUDIES: Reviewed in the HPI. IMPRESSION: A 51-year-old male presenting with hematuria, abdominal pain and a right-sided kidney stone. He developed elevated liver function tests in the interim. PLAN: It is unknown what caused the patient's elevation of his liver panel, though it is acute as I reviewed his chart back through to 2018 and he has not had any elevation of his liver panel prior to this. The overwhelming majority of cases of acute liver injury resolve with normalization of laboratory values within 8 weeks. If they would be elevated longer than 8 weeks. This would be considered chronic liver disease and would be worked up as an outpatient. The differential diagnosis for his acute liver injury would be secondary to (#1) medications, (#2) acute viral syndrome, (#3) hypotension resulting in ischemic hepatitis. I would recommend that the patient have repeat liver panel on Thursday and Thursday of this week if he is to be discharged. I would recommend that he follow up with his primary care physician, and if his numbers are worsening, we are happy to see him for further recommendations. I would recommend that he abstain from all alcohol as it is a known liver toxin. I will follow his clinical course and make further recommendations as needed. Once again, thanks for allowing me to participate in the care of this patient. If you have any further questions, please do not hesitate in contacting me. Job ID: [id number] CAIT
[2021-09-22] MEDS ORDERED: LACTATED RINGER'S 1,000 ML IV SCH (17:30)
[2021-09-22] MEDS ORDERED: DULoxetine HCL 30 MG CAP PO SCH (21:00)
[2021-09-23 07:38] LABS: Estimated Average Glucose 120 mg/dl; Hemoglobin A1C 5.8 % (4.5-5.6)
[2021-09-23] MEDS ORDERED: TAMSULOSIN HCL 0.4 MG CAP PO SCH (09:00)
[2021-09-23 09:35] LABS: Hepatitis B Surf Ag Rflx Conf Neg (Neg)
[2021-09-23 10:04] LABS: Hepatitis C IgG 13Yrs+Old_Rflx Neg (Neg)
[2021-09-24 10:45] LABS: Hepatitis A Antibody IgM NON-REACTIVE (NON-REACTIVE); Hepatitis B Core Antibody IgM NON-REACTIVE (NON-REACTIVE)
== END 2021-09-22 17:35 | disposition home or self-care (01) ==
LOC: ED 22:45 → INTOOBSV 09-22 04:07 → 3N 09-22 04:07
DX: F32.A Depression, unspecified; R74.01 Elevation of levels of liver transaminase levels; Z20.822 Contact with and (suspected) exposure to COVID-19; Z88.0 Allergy status to penicillin; N20.0 Calculus of kidney; E78.5 Hyperlipidemia, unspecified; I25.5 Ischemic cardiomyopathy; Z91.048 Other nonmedicinal substance allergy status; Z79.899 Other long term (current) drug therapy; N13.9 Obstructive and reflux uropathy, unspecified; I25.10 Atherosclerotic heart disease of native coronary artery without angina pectoris